=== PATIENT | female | born 1975 | race African-American/Black ===

== ENCOUNTER 2018-01-05 14:38 | Outpatient (CLI) | payer MEDICARE | END 2018-01-05 14:39 | disposition home or self-care (01) | LOC: CTENTCT 14:38 | PROVIDERS: ATTEND Specialist | DX: J32.9 Chronic sinusitis, unspecified (principal) | CPT/HCPCS: 70486 ==

== ENCOUNTER 2020-11-16 06:31 | Inpatient (IN) | payer MEDICARE ==
[2020-11-16 07:12] LABS: #Basophils 0.1 thou/uL (0.0-0.2); #Lymphocytes 3.7 thou/uL (1.20-3.40); #Monocytes 0.6 thou/uL (0.11-0.59); #Neutrophils 7.5 thou/uL (1.40-6.50); %Basophils 0.8 % (0.0-1.0); %Eosinophils 0.3 % (0.0-10.0); %Lymphocytes 30.9 % (21.0-51.0); %Monocytes 4.9 % (0.0-10.0); %Neutrophils 63.1 % (42.0-75.0); Hemoglobin 10.7 g/dL (12.0-16.0); Mean Corpuscular HGB CONC 30.9 g/dL (32.0-36.0); Mean Corpuscular Hemoglobin 27.1 pg (27.0-31.0); Mean Corpuscular Volume 87.6 fL (78.0-98.0); Mean Platelet Volume 7.6 fL (7.4-10.4); Platelet Count 416 thou/uL (130-400); Red Blood Cell (RBC) Count 3.95 mill/uL (4.20-5.40); White Blood Cell (WBC) Count 11.9 thou/uL (4.8-10.8)
[2020-11-16 07:36] LABS: ALT (SGPT) 16 U/L (8-55); AST (SGOT) 25 U/L (5-34); Albumin 3.5 g/dL (3.5-5.0); Alkaline Phosphatase 120 U/L (40-110); Anion Gap 16 mmol/L (10-20); BUN (Urea Nitrogen) 12 mg/dL (7.0-18.7); Bilirubin, Total 0.8 mg/dL (0.2-1.2); Calc. Creatinine Clearance 0 mL/min (70-130); Carbon Dioxide 28 mmol/L (22-29); Chloride 98 mmol/L (98-107); Globulin 5.2 g/dL (2.4-3.5); Glucose 148 mg/dL (70-105); Potassium 4.7 mmol/L (3.5-5.1); Protein, Total 8.7 g/dL (6.0-8.3); Sodium 137 mmol/L (136-145)
--- NOTE | 2020-11-16 07:50 | RAD ---
RADIOGRAPH CHEST 1 VIEW: DATE: 11/16/2020 TIME: 7:04 AM HISTORY: 45-year-old female with dyspnea and chest pain COMPARISON: 06/30/2004 FINDINGS: New cardiomegaly. New pulmonary venous engorgement. New bilateral hilar fullness. Questionable mild infiltrate at right base versus artifact. The lateral costophrenic angles are sharp. Limited study because of body habitus. No large pneumothorax. IMPRESSION: Cardiomegaly and borderline or mild congestive heart failure
[2020-11-16] MEDS ORDERED: Diltiazem 125 MG/25 ML ONE (09:40)
[2020-11-16 11:19] LABS: SARS-CoV-2 NAA Rapid Test Not Detected (NotDetected)
[2020-11-16] MEDS ORDERED: Apixaban 5 MG TAB PO SCH ×2 (11:30→12:30)
[2020-11-16] MEDS ORDERED: Magnesium 2 GM/50 ML BAG (IN WATER) ONE (12:07)
[2020-11-16] MEDS ORDERED: Magnesium 2 GM/50 ML 2 GM in Premix Bag 1 BAG IVPB SCH (12:30)
[2020-11-16] MEDS ORDERED: Sodium Chloride 0.9% 1,000 ML IV SCH (12:30)
--- NOTE | 2020-11-16 13:18 | ULT ---
ULTRASOUND DOPPLER DUPLEX VENOUS BILATERAL LOWER EXTREMITIES: DATE: 11/16/2020 HISTORY: 45-year-old female with bilateral lower extremity pain and swelling TECHNIQUE: Grayscale, color-flow, and spectral analysis, of the bilateral common femoral, profunda femoral, grea ter saphenous, femoral, popliteal, and posterior tibial, veins. FINDINGS: Because of body habitus, unable to compress or visualize the bilateral femoral veins or popliteal vei ns, which are all very poorly visualized. Blood flow is demonstrated by Doppler within these veins. Posterior tibial veins completely nonvisualized bilaterally. There is flow and normal compressibility in the bilateral common femoral veins and greater saphenous veins. IMPRESSION: 1) very limited study with nonvisualization of many major veins due to body habitus. 2) no occlusive deep venous thrombosis of the thighs and knees. This does not necessarily rule out no nocclusive deep venous thrombosis. 3) bilateral posterior tibial veins not visualized at all
[2020-11-16 15:01] LABS: Troponin I 0.013 ng/mL (< 0.028)
[2020-11-16] MEDS ORDERED: Furosemide 40 MG/4 ML VIAL SLOW IVP SCH (16:00)
--- NOTE | 2020-11-16 16:44 | PDOC.HHP ---
Hospitalist HPI shortness of breath, chest pain History of Present Illness: This is a 45 year old female with past medical history of sinus problems who presented to the ER with shortness of breath, leg swelling, abdominal swelling and chest pain. Her abdominal swelling started last Wednesday and got to the point where she would get pitting edema if she left her hand on her stomach. She does not eat salt, and drinks about four 16 ounce glasses of water daily . Her swelling was accompanied by intermittent sharp abdominal pains on her left side that are relieved with antacids. She has no nausea or vomiting. Yesterday, she noticed that her legs started to swell as well, and she experienced shortness of breath walking from her living room to her bathroom. She also reports chest pain on her left side that occasionally radiates to her back. Her chest pain occurs at rest and on exertion. She reports a clear productive cough, denies fevers, chills, runny nose or sore throat. She has had a normal stress test in the past. She denies any recent travel history and has not left her house since the pandemic. She denies palpitations, diaphoresis, dizziness or lightheadedness She had a history of hypertension in the past but states she was not taking blood pressure medicine at home because she was weaned off all of them. ED Course: When the patient presented to the ER, she had a blood pressure of 173/118. She also had a pulse of 150 and was found to be in afib with RVR. D-dimer was 3.97. Chest X ray showed mild CHF. CTA was unable to be done due to her body habitus. Venous dopplers were negative for DVT, but there was a limited assessment. The patient was given 20 mg IV diltiazem and started on a diltiazem drip at 5 mg/hour. She was also given 30 mg of oral cardizem and 10 mg of eliquis. She was given 1L of fluid as well. She received 2 grams of magnesium Allergies/Adverse Reactions: Allergy/AdvReac Type Severity Reaction Status Date / Time No Known Allergies Allergy Verified 11/16/20 16:04 Home Medications: Medication Instructions Recorded Confirmed Type No Known 11/16/20 11/16/20 History Past History: PMHx: Chronic allergies ROBERT Arthritis PSHx: No surgeries FHx: no family medical history Social: The patient lives in an apartment in [place]. She never smokes and does not drink alcohol. He does not use any illicit drugs Hospitalist HPI ROS Constitutional: denies: fever, chills Hospitalist Exam Vitals: Vital Signs (12 hours) Temp Pulse Resp BP Pulse Ox 11/16/20 15:45 97.9 F 91 18 125/58 L 98 Weight Weight 502 lb General Appearance: NAD, awake alert General - other findings: morbidly obese with a BMI of 86 Eye: PERRL, anicteric sclera ENT: normocephalic atraumatic, no oropharyngeal lesions Neck: no JVD Heart: no murmur, no gallops, no rubs, irregular Respiratory: CTAB, no wheezes, no rales, no ronchi Gastrointestinal: soft, non-tender, non-distended, normal bowel sounds, no hepatomegaly Extremities: no cyanosis, no clubbing, 2+ LE edema Skin: normal turgor, no lesions, no rashes Skin - other findings: venous stasis changes in lower extremities Neurological: cranial nerve grossly intact, normal sensation to touch, no weakness Musculoskeletal: normal tone, normal strength, no muscle wasting Psychiatric: normal affect, normal behavior, A&O x 3, oriented to person Hospitalist Results Result Diagrams: 11/16/20 06:55 11/16/20 06:55 Lab results: Laboratory Last Values WBC 11.9 thou/uL (4.8-10.8) H 11/16/20 06:55 RBC 3.95 mill/uL (4.20-5.40) L 11/16/20 06:55 Hgb 10.7 g/dL (12.0-16.0) L 11/16/20 06:55 Hct 34.6 % (36.0-47.0) L 11/16/20 06:55 MCV 87.6 fL (78.0-98.0) 11/16/20 06:55 MCH 27.1 pg (27.0-31.0) 11/16/20 06:55 MCHC 30.9 g/dL (32.0-36.0) L 11/16/20 06:55 RDW 18.0 % (11.5-14.5) H 11/16/20 06:55 Plt Count 416 thou/uL (130-400) H 11/16/20 06:55 MPV 7.6 fL (7.4-10.4) 11/16/20 06:55 Neutrophils % 63.1 % (42.0-75.0) 11/16/20 06:55 Lymphocytes % 30.9 % (21.0-51.0) 11/16/20 06:55 Monocytes % 4.9 % (0.0-10.0) 11/16/20 06:55 Eosinophils % 0.3 % (0.0-10.0) 11/16/20 06:55 Basophils % 0.8 % (0.0-1.0) 11/16/20 06:55 Neutrophils # 7.5 thou/uL (1.40-6.50) H 11/16/20 06:55 Lymphocytes # 3.7 thou/uL (1.20-3.40) H 11/16/20 06:55 Monocytes # 0.6 thou/uL (0.11-0.59) H 11/16/20 06:55 Eosinophils # 0.0 thou/uL (0.0-0.7) 11/16/20 06:55 Basophils # 0.1 thou/uL (0.0-0.2) 11/16/20 06:55 D-Dimer 3.97 *mcg/mL (0.27-0.43) H 11/16/20 06:55 Sodium 137 mmol/L (136-145) 11/16/20 06:55 Potassium 4.7 mmol/L (3.5-5.1) 11/16/20 06:55 Chloride 98 mmol/L (98-107) 11/16/20 06:55 Carbon Dioxide 28 mmol/L (22-29) 11/16/20 06:55 Anion Gap 16 mmol/L (10-20) 11/16/20 06:55 BUN 12 mg/dL (7.0-18.7) 11/16/20 06:55 Creatinine 0.79 mg/dL (0.6-1.1) 11/16/20 06:55 Estimated GFR (MDRD) Greater than 90 11/16/20 06:55 Glucose 148 mg/dL (70-105) H 11/16/20 06:55 Calcium 9.0 mg/dL (7.8-10.44) 11/16/20 06:55 Total Bilirubin 0.8 mg/dL (0.2-1.2) 11/16/20 06:55 AST 25 U/L (5-34) 11/16/20 06:55 ALT 16 U/L (8-55) 11/16/20 06:55 Alkaline Phosphatase 120 U/L (40-110) H 11/16/20 06:55 Troponin I 0.013 ng/mL (< 0.028) 11/16/20 14:31 B-Natriuretic Peptide 318.1 pg/mL (0-100) H 11/16/20 06:55 Serum Total Protein 8.7 g/dL (6.0-8.3) H 11/16/20 06:55 Albumin 3.5 g/dL (3.5-5.0) 11/16/20 06:55 Globulin 5.2 g/dL (2.4-3.5) H 11/16/20 06:55 Albumin/Globulin Ratio 0.7 g/dL (1.2-2.2) L 11/16/20 06:55 Lipase 7 U/L (8-78) L 11/16/20 11:05 TSH 3rd Generation 2.8126 uIU/mL (0.35-4.94) 11/16/20 06:55 SARS-CoV-2 Rap RNA(RT-PCR) Not Detected (NotDetected) 11/16/20 08:47 Hospitalist H&P A/P Plan: Dopplers: no DVT, but limited study This is a 45 year old female with past medical history of ROBERT, arthritis who presented with shortness of breath, leg swelling, abdominal swelling, was found to be in afib with RVR #Afib with RVR new onset #Dyspnea on exertion - possibly secondary to CHF #Chest pain on exertion #Hypertensive urgency - the patient presented with new onset afib with RVR and BP of 150/114 . She was started on a diltiazem drip. Will place on diltiazem 30 mg po q6 hours and try to wean her off the drip. - troponins x 2 are negative, pending one more. Will monitor on telemetry - she received eliquis 10 mg , will switch to 5 mg bid since no evidence of PE currently - ordered IV lasix 40 mg for possible CHF. Will check ECHO . Place cardiology consult Abdominal swelling - possibly from CHF vs GERD - will give IV lasix and reassess - will order tums prn Peripheral edema - possibly CHF - d-dimer was elevated. Dopplers showed no DVT, but limited study and posterior tibial veins were not visualized at all Allergies - continue claritin prn
[2020-11-16] MEDS ORDERED: Loratadine 10 MG TAB PO PRN (17:40)
[2020-11-16] MEDS ORDERED: Calcium Carbonate 500 MG ChewTAB PO PRN (17:48)
[2020-11-16 18:18] LABS: Troponin I Less than 0.010 ng/mL (< 0.028)
[2020-11-16] MEDS: Diltiazem 125 MG in Sodium Chloride 0.9% 100 ML IVPB SCH (20:07)
[2020-11-16] MEDS: Flecainide 50 MG TAB PO SCH (20:09)
--- NOTE | 2020-11-16 20:53 | CON ---
DATE OF CONSULTATION: 11/16/2020 REASON FOR CONSULTATION: Atrial flutter. HISTORY OF PRESENT ILLNESS: Ms. Haley is a pleasant 45-year-old female, who comes to the hospital for shortness of breath. She states that she started having abdominal pain on Wednesday, today is Wednesday. She eventually developed some chest discomfort on , developed worsening shortness of breath Wednesday and Wednesday to the point where today she decided to come in for evaluation as she was not feeling any better and just feeling worse. She was found to be in atrial flutter on admission, so she was started on diltiazem drip and Cardiology is being consulted for this. Because of her weight, we were unable to do a CT of the chest to evaluate for pulmonary embolism. However, an ultrasound of the lower extremities was done and because of body habitus, there were unable to do a full study. The areas that were looked at had no thrombus, but there were other deep veins that could not be seen. Because of being in atrial flutter, she was started on Eliquis. Currently, she denies any chest pain, tightness, pressure. She states that she had some abdominal swelling and is already feeling better after she was given one dose of Lasix. PAST MEDICAL HISTORY: 1. Morbid obesity. 2. Obstructive sleep apnea. 3. Osteoarthritis. PAST SURGICAL HISTORY: None. FAMILY HISTORY: Noncontributory. SOCIAL HISTORY: No alcohol, tobacco, or drugs. REVIEW OF SYSTEMS: A 12-point review of systems was negative unless stated in history of present illness or below. She did have some cough, cough is getting better. No fevers. PHYSICAL EXAMINATION: VITAL SIGNS: Temperature 97.9, pulse of 110, respiratory rate 18, saturating 98% on 2 L nasal cannula, blood pressure 125/58. GENERAL: Awake, alert, and oriented x3, in no distress. Obese. HEENT: Normocephalic, atraumatic. NECK: Supple. LUNGS: Clear with distant lung sounds. CARDIOVASCULAR: Distant sounds. Irregularly irregular. Difficult to assess for murmurs. ABDOMEN: Positive bowel sounds. EXTREMITIES: No apparent edema. SKIN: Warm and dry. LABORATORY DATA: Laboratory work was reviewed. COVID PCR was not detected. CBC with a white count of 11, hemoglobin 10, hematocrit of 34, and platelet count 416. D-dimer was elevated. Chemistry was unremarkable except for a glucose of 148. Alkaline phosphatase at 120. BNP was 318. Troponin was negative x2. Albumin of 3.5. Lipase was low at 7. TSH was normal. Venous ultrasound Doppler for veins shows no evidence of DVT in any of the imaged veins, however, bilateral posterior tibial veins were not visualized. Telemetry strips were reviewed. No EKG was there for review. Telemetry strips seem to be in atrial flutter, cannot tell typical versus atypical. EKG has been ordered. ASSESSMENT AND PLAN: 1. Atrial flutter with variable AV block, unspecified typical versus atypical. 2. Acute on chronic diastolic versus systolic heart failure. 3. Cannot rule out deep venous thrombosis/pulmonary embolism. 4. Morbid obesity. 5. Sleep apnea. PLAN: 1. Echocardiogram to be done. 2. Full anticoagulation with Eliquis at 5 mg b.i.d., completely agree with this. 3. We will start flecainide 50 mg b.i.d., continue diltiazem drip and p.o. diltiazem doses. Hopefully, she will convert into sinus on her own over the weekend. 4. I agree with IV Lasix. We will do this twice a day for the next few days to get some of this fluid out. 5. If she becomes unstable, she may need a cardioversion from the flutter. However, at this point, she is quite stable. We may just need to wait for 4 weeks of anticoagulation before we give her a shock. It would be a challenge to do a transesophageal echo given her size, but we may have to do this. 6. I will consult Electrophysiology to see if they have anything else to offer. A bigger question would be any dosage adjustments given her weight. At this point, I do not think she would qualify for ablation given she is over the weight limit for the table. 7. We will follow. Job ID: [id number]
[2020-11-16 20:56] LABS: Lactic Acid 1.2 mmol/L (0.5-2.2)
[2020-11-16 23:28] LABS: Hemoglobin A1c 6.4 % (4.0-6.0)
[2020-11-17] MEDS: Diltiazem 125 MG in Sodium Chloride 0.9% 100 ML IVPB SCH ×3 (03:15→22:03)
[2020-11-17] MEDS: Furosemide 40 MG/4 ML VIAL SLOW IVP SCH ×2 (05:37→13:08)
[2020-11-17 09:20] LABS: Mean Corpuscular HGB CONC 30.2 g/dL (32.0-36.0); Mean Corpuscular Hemoglobin 26.9 pg (27.0-31.0); Mean Corpuscular Volume 89.1 fL (78.0-98.0); Mean Platelet Volume 7.3 fL (7.4-10.4); Platelet Count 374 thou/uL (130-400); RBC Distribution Width 17.9 % (11.5-14.5); Red Blood Cell (RBC) Count 4.09 mill/uL (4.20-5.40); White Blood Cell (WBC) Count 11.7 thou/uL (4.8-10.8)
[2020-11-17] MEDS: Flecainide 50 MG TAB PO SCH ×2 (09:21→20:46)
[2020-11-17] MEDS: Apixaban 5 MG TAB PO SCH ×2 (09:22→20:46)
[2020-11-17 09:37] LABS: Magnesium 1.9 mg/dL (1.6-2.6)
[2020-11-17 09:38] LABS: ALT (SGPT) 13 U/L (8-55); AST (SGOT) 14 U/L (5-34); Albumin 3.7 g/dL (3.5-5.0); Alkaline Phosphatase 111 U/L (40-110); Anion Gap 12 mmol/L (10-20); BUN (Urea Nitrogen) 12 mg/dL (7.0-18.7); Bilirubin, Total 0.8 mg/dL (0.2-1.2); Calc. Creatinine Clearance 316 mL/min (70-130); Calcium 8.9 mg/dL (7.8-10.44); Carbon Dioxide 34 mmol/L (22-29); Chloride 97 mmol/L (98-107); Globulin 5.3 g/dL (2.4-3.5); Glucose 137 mg/dL (70-105); Iron 29 ug/dL (50-170); Iron Binding Capacity, Total 398 mcg/dL (265-497); Potassium 4.5 mmol/L (3.5-5.1); Sodium 138 mmol/L (136-145)
--- NOTE | 2020-11-17 13:17 | PDOC.HOSPP ---
- Subjective Encounter Date: 11/17/20 Encounter Time: 10:00 Subjective: No complaints, asymptomatic, lying in bed - Objective Vital Signs & Weight: Vital Signs (12 hours) Temp Pulse Resp BP Pulse Ox 11/17/20 11:35 98.0 F 99 19 115/78 98 11/17/20 10:32 98.2 F 103 H 21 H 135/84 98 11/17/20 07:26 97.7 F 90 17 129/78 94 L 11/17/20 04:00 101 H 18 119/50 L 97 11/17/20 02:00 101 H 153/96 H Weight Weight 496 lb 4.8 oz I&O: 11/16/20 11/17/20 11/18/20 06:59 06:59 06:59 Intake Total 240 Output Total 1850 Balance -1610 Result Diagrams: 11/17/20 09:07 11/17/20 09:07 Hospitalist ROS - Review of Systems Constitutional: denies: fever, chills, sweats, weakness, malaise, other Eyes: denies: pain, vision change, conjunctivae inflammation, eyelid inflammation, redness, other ENT: denies: ear pain, ear discharge, nose pain, nose discharge, nose congestion, mouth pain, mouth swelling, throat pain, throat swelling, other Respiratory: denies: cough, dry, shortness of breath, hemoptysis, SOB with excertion, pleuritic pain, sputum, wheezing, other Cardiovascular: denies: chest pain, palpitations, orthopnea, paroxysmal noc. dyspnea, edema, light headedness, other Gastrointestinal: denies: nausea, vomiting, abdominal pain, diarrhea, constipation, melena, hematochezia, other Musculoskeletal: denies: neck pain, shoulder pain, arm pain, back pain, hand pain, leg pain, foot pain, other Neurological: denies: weakness, numbness, incoordination, change in speech, confusion, seizures, other - Medication Medications: Active Medications Generic Name Dose Route Start Last Admin Trade Name Freq PRN Reason Stop Dose Admin Apixaban 5 mg 11/17/20 09:00 11/17/20 09:22 Apixaban 5 Mg Tab PO 5 mg BID IDALMIS Administration Diltiazem HCl 30 mg 11/16/20 18:00 11/17/20 11:41 Diltiazem Hcl 30 Mg Tablet PO 30 mg Q6HR IDALMIS Administration Flecainide Acetate 50 mg 11/16/20 21:00 11/17/20 09:21 Flecainide 50 Mg Tab PO 50 mg Q12HR IDALMIS Administration Furosemide 40 mg 11/17/20 06:00 11/17/20 13:08 Furosemide 40 Mg/4 Ml Vial SLOW IVP 40 mg 0600,1400 IDALMIS Administration Diltiazem HCl 125 mg/ Sodium 125 mls @ 5 mls/hr 11/16/20 12:30 11/17/20 13:07 Chloride IVPB 125 mls INF IDALMIS Administration 5 MG/HR Hospitalist Exam Vitals: Vital Signs (12 hours) Temp Pulse Resp BP Pulse Ox 11/17/20 11:35 98.0 F 99 19 115/78 98 11/17/20 10:32 98.2 F 103 H 21 H 135/84 98 11/17/20 07:26 97.7 F 90 17 129/78 94 L 11/17/20 04:00 101 H 18 119/50 L 97 11/17/20 02:00 101 H 153/96 H Weight Weight 496 lb 4.8 oz General Appearance: NAD, awake alert Eye: PERRL, anicteric sclera ENT: normocephalic atraumatic Neck: supple Heart: irregular Respiratory: CTAB Gastrointestinal: soft, non-tender, non-distended Neurological: cranial nerve grossly intact Musculoskeletal: normal tone Psychiatric: normal affect, normal behavior Hosp A/P - Plan 1. Atrial fibrillation in RVR/A.flutter -On diltiazem gtt. and flecainide -2D echo also done, result pending -If patient fails to convert to sinus rhythm, EP was consulted for cardioversion tomorrow -On Eliquis for stroke prophylaxis 2. Acute mild CHF exacerbation likely diastolic in nature -Chest x-ray showed evidence of mild CHF and also with bilateral lower extremity edema -IV Lasix -Awaiting 2D echo results 3. DVT prophylaxis -On Eliquis
--- NOTE | 2020-11-17 16:16 | PDOC.CPN ---
- Subjective Date: 11/17/20 Time: 16:12 Interval history: She feels well and is asking when she can go home. - Review of Systems General: denies: fever/chills, weight/appetite/sleep changes, night sweats, fatigue Respiratory: reports: exercise intolerance. denies: cough, congestion, shortness of breath Cardiovascular: denies: chest pain, palpitation, edema, paroxysmal nocturnal dyspnea, orthopnea Gastrointestinal: denies: nausea, vomiting, diarrhea, constipation, abd pain, GI bleeding Musculoskeletal: denies: pain, tenderness, stiffness, swelling, arthritis/arthralgias Neurological: denies: numbness, syncope, seizure, weakness - Objective Allergies/Adverse Reactions: Allergies Allergy/AdvReac Type Severity Reaction Status Date / Time No Known Allergies Allergy Verified 11/16/20 16:04 Visit Medications: Current Medications Apixaban (Apixaban 5 Mg Tab) 5 mg PO BID [facility] Last Admin: 11/17/20 09:22 Dose: 5 mg Documented by: Calcium Carbonate (Calcium Carbonate 500 Mg Chewtab) 1,000 mg PO DAILYPRN PRN PRN Reason: Heartburn or Indigestion Diltiazem HCl (Diltiazem Hcl 30 Mg Tablet) 30 mg PO Q6HR [facility] Last Admin: 11/17/20 11:41 Dose: 30 mg Documented by: Flecainide Acetate (Flecainide 50 Mg Tab) 50 mg PO Q12HR [facility] Last Admin: 11/17/20 09:21 Dose: 50 mg Documented by: Furosemide (Furosemide 40 Mg/4 Ml Vial) 40 mg SLOW IVP 0600,1400 [facility] Last Admin: 11/17/20 13:08 Dose: 40 mg Documented by: Diltiazem HCl 125 mg/ Sodium (Chloride) 125 mls @ 15 mls/hr IVPB INF [facility] Last Admin: 11/17/20 13:07 Dose: 125 mls Documented by: Loratadine (Loratadine 10 Mg Tab) 10 mg PO DAILYPRN PRN PRN Reason: Allergies Vital Signs & Weight: Vital Signs Temp Pulse Resp BP Pulse Ox 11/17/20 15:59 98.3 F 90 16 146/92 H 95 11/17/20 14:20 99.0 F 109 H 17 125/95 H 95 11/17/20 11:35 98.0 F 99 19 115/78 98 11/17/20 10:32 98.2 F 103 H 21 H 135/84 98 11/17/20 07:26 97.7 F 90 17 129/78 94 L Weight 496 lb 4.8 oz - Physical Exam General: alert & oriented x3 HEENT: mucus membranes moist Neck: supple neck Cardiac: irregularly regular Lungs: clear to auscultation Neuro: grossly intact Abdomen: active bowel sounds Extremities: 1+ LE edema Skin: clear Musculoskeletal: no pain - Labs Result Diagrams: 11/17/20 09:07 11/17/20 09:07 Troponin/CKMB Troponin I Less than 0.010 ng/mL (< 0.028) 11/16/20 17:50 - Telemetry Supraventricular conduction: atrial flutter - Assessment/Plan Assessment/Plan: 1. Atrial flutter with variable AV block. 2. Acute on chronic diastolic heart failure. 3. Morbid obesity 4. Sleep apnea 5. Anemia at baseline. PLAN: - Continue lenient rate control. HR in the 90's to 110's. - Eliquis for stroke prophylaxis. - On flecainide at 50 mg BID and diltiazem drip. - EP consult in AM.
[2020-11-17] MEDS: Acetaminophen 325 MG TAB PO PRN (16:45)
[2020-11-18] MEDS: Acetaminophen 325 MG TAB PO PRN ×2 (03:51→20:52)
[2020-11-18] MEDS: Furosemide 40 MG/4 ML VIAL SLOW IVP SCH ×2 (05:51→12:53)
[2020-11-18] MEDS: Diltiazem 125 MG in Sodium Chloride 0.9% 100 ML IVPB SCH ×2 (07:18→18:46)
[2020-11-18] MEDS: Apixaban 5 MG TAB PO SCH ×2 (08:07→20:52)
[2020-11-18] MEDS: Flecainide 50 MG TAB PO SCH ×2 (08:07→20:52)
--- NOTE | 2020-11-18 14:28 | PDOC.CPN ---
- Subjective Date: 11/18/20 Time: 14:27 Interval history: More SOB this morning and more edema. - Review of Systems General: reports: fatigue. denies: fever/chills, weight/appetite/sleep changes, night sweats Respiratory: reports: shortness of breath, exercise intolerance. denies: cough, congestion Cardiovascular: denies: chest pain, palpitation, edema, paroxysmal nocturnal dyspnea, orthopnea Gastrointestinal: denies: nausea, vomiting, diarrhea, constipation, abd pain, GI bleeding Musculoskeletal: denies: pain, tenderness, stiffness, swelling, arth ritis/arthralgias Neurological: denies: numbness, syncope, seizure, weakness - Objective Allergies/Adverse Reactions: Allergies Allergy/AdvReac Type Severity Reaction Status Date / Time No Known Allergies Allergy Verified 11/16/20 16:04 Visit Medications: Current Medications Acetaminophen (Acetaminophen 325 Mg Tab) 650 mg PO Q6H PRN PRN Reason: Headache/Fever or Pain Last Admin: 11/18/20 03:51 Dose: 650 mg Documented by: Apixaban (Apixaban 5 Mg Tab) 5 mg PO BID REPLACED BY [facility] Last Admin: 11/18/20 08:07 Dose: 5 mg Documented by: Calcium Carbonate (Calcium Carbonate 500 Mg Chewtab) 1,000 mg PO DAILYPRN PRN PRN Reason: Heartburn or Indigestion Diltiazem HCl (Diltiazem Hcl 30 Mg Tablet) 60 mg PO Q6HR REPLACED BY [facility] Last Admin: 11/18/20 12:53 Dose: 60 mg Documented by: Flecainide Acetate (Flecainide 50 Mg Tab) 100 mg PO Q12HR REPLACED BY [facility] Furosemide (Furosemide 40 Mg/4 Ml Vial) 40 mg SLOW IVP 0600,1400 REPLACED BY [facility] Last Admin: 11/18/20 12:53 Dose: 40 mg Documented by: Diltiazem HCl 125 mg/ Sodium (Chloride) 125 mls @ 15 mls/hr IVPB INF REPLACED BY [facility] Last Admin: 11/18/20 07:18 Dose: 125 mls Documented by: Loratadine (Loratadine 10 Mg Tab) 10 mg PO DAILYPRN PRN PRN Reason: Allergies Sodium Chloride (Flush - Normal Saline 10 Ml Syringe) 10 ml IVF Q12HR IDALMIS Sodium Chloride (Flush - Normal Saline 10 Ml Syringe) 10 ml IVF PRN PRN PRN Reason: Saline Flush Vital Signs & Weight: Vital Signs Temp Pulse Resp BP Pulse Ox 11/18/20 12:52 98.3 F 120 H 26 H 135/83 98 11/18/20 11:09 99.1 F 117 H 20 157/89 H 99 11/18/20 10:36 99.6 F 115 H 25 H 141/69 H 98 11/18/20 07:43 98.4 F 99 32 H 151/109 H 100 11/18/20 07:03 93 L 11/18/20 06:00 100 18 132/107 H 11/18/20 04:00 108 H 18 145/107 H Weight 496 lb 4.8 oz - Physical Exam General: alert & oriented x3 HEENT: mucus membranes moist Neck: supple neck Cardiac: irregularly regular, tachycardia Lungs: decreased breath sounds Neuro: grossly intact Abdomen: active bowel sounds Extremities: 1+ LE edema Skin: clear Musculoskeletal: no pain - Labs Result Diagrams: 11/17/20 09:07 11/17/20 09:07 Troponin/CKMB Troponin I Less than 0.010 ng/mL (< 0.028) 11/16/20 17:50 - Telemetry Supraventricular conduction: atrial flutter - Assessment/Plan Assessment/Plan: 1. Atrial flutter with variable AV block. 2. Acute on chronic diastolic heart failure. 3. Morbid obesity 4. Sleep apnea 5. Anemia at baseline. PLAN: - Currently not rate controlled in the 120's. - Eliquis for stroke prophylaxis. - On flecainide and diltiazem. - Appreciate EP input. Plan on EZRA/DCCV tomorrow. - Will give one dose IV lasix.
--- NOTE | 2020-11-18 15:04 | PDOC.HOSPP ---
- Subjective Encounter Date: 11/18/20 Encounter Time: 07:00 Subjective: Patient seen in follow-up regarding atrial flutter. Denies chest pain or shortness of breath. - Objective Vital Signs & Weight: Vital Signs (12 hours) Temp Pulse Resp BP Pulse Ox 11/18/20 12:52 98.3 F 120 H 26 H 135/83 98 11/18/20 11:09 99.1 F 117 H 20 157/89 H 99 11/18/20 10:36 99.6 F 115 H 25 H 141/69 H 98 11/18/20 07:43 98.4 F 99 32 H 151/109 H 100 11/18/20 07:03 93 L 11/18/20 06:00 100 18 132/107 H 11/18/20 04:00 108 H 18 145/107 H Weight Weight 496 lb 4.8 oz I&O: 11/17/20 11/18/20 11/19/20 06:59 06:59 06:59 Intake Total 240 1860 Output Total 1850 1600 Balance -1610 260 Result Diagrams: 11/17/20 09:07 11/17/20 09:07 Additional Labs: Labs and MAR reviewed by me EKG Reviewed by me: Yes (Atrial flutter on telemetry) Hospitalist ROS - Review of Systems Cardiovascular: denies: chest pain, palpitations, orthopnea, paroxysmal noc. dyspnea, edema, light headedness Gastrointestinal: denies: nausea, vomiting, abdominal pain, diarrhea, constipation, melena, hematochezia - Medication Medications: Active Medications Generic Name Dose Route Start Last Admin Trade Name Freq PRN Reason Stop Dose Admin Acetaminophen 650 mg 11/17/20 16:29 11/18/20 03:51 Acetaminophen 325 Mg Tab PO 650 mg Q6H PRN Administration Headache/Fever or Pain Apixaban 5 mg 11/17/20 09:00 11/18/20 08:07 Apixaban 5 Mg Tab PO 5 mg BID IDALMIS Administration Diltiazem HCl 60 mg 11/18/20 12:00 11/18/20 12:53 Diltiazem Hcl 30 Mg Tablet PO 60 mg Q6HR IDALMIS Administration Furosemide 40 mg 11/17/20 06:00 11/18/20 12:53 Furosemide 40 Mg/4 Ml Vial SLOW IVP 40 mg 0600,1400 IDALMIS Administration Diltiazem HCl 125 mg/ Sodium 125 mls @ 15 mls/hr 11/16/20 12:30 11/18/20 07:18 Chloride IVPB 125 mls INF IDALMIS Administration 15 MG/HR Hospitalist Exam Vitals: Vital Signs (12 hours) Temp Pulse Resp BP Pulse Ox 11/18/20 12:52 98.3 F 120 H 26 H 135/83 98 11/18/20 11:09 99.1 F 117 H 20 157/89 H 99 11/18/20 10:36 99.6 F 115 H 25 H 141/69 H 98 11/18/20 07:43 98.4 F 99 32 H 151/109 H 100 11/18/20 07:03 93 L 11/18/20 06:00 100 18 132/107 H 11/18/20 04:00 108 H 18 145/107 H Weight Weight 496 lb 4.8 oz General Appearance: awake alert General - other findings: Morbid obesity Eye: anicteric sclera ENT: normocephalic atraumatic Neck: supple Heart: no rubs, irregular Respiratory: CTAB Gastrointestinal: soft, non-tender Extremities: 2+ LE edema Skin: no rashes Psychiatric: normal affect, normal behavior Hosp A/P - Plan -Assessment/plan 1. Atrial fibrillation in RVR/A.flutter -Continue diltiazem gtt. and flecainide -Neurology/electrophysiology service is following -Continue Eliquis for stroke prophylaxis 2. Acute on chronic diastolic congestive heart failure NYHA class III -Continue IV Lasix -No systolic dysfunction on 2D echo, diastolic function could not be evaluated secondary to atrial flutter. 3. Morbid obesity 4. DVT prophylaxis -Patient is on Eliquis
[2020-11-18] MEDS ORDERED: Promethazine HCl 25 MG/ML VIAL IM/IV PRN (19:02)
[2020-11-19] MEDS ORDERED: Diltiazem 125 MG in Sodium Chloride 0.9% 100 ML IVPB SCH (03:00)
[2020-11-19 04:57] VITALS: BMI 84.6
[2020-11-19 05:08] LABS: Band 1 % (5-11); Eosinophils 1 % (0-10); Hemoglobin 10.3 g/dL (12.0-16.0); Hypochromia SLIGHT = 6-15 cells (100X) (0-5/hpf); Lymphocytes 18 % (21-51); MDiff Complete? YES; Mean Corpuscular HGB CONC 30.4 g/dL (32.0-36.0); Mean Corpuscular Hemoglobin 27.6 pg (27.0-31.0); Mean Corpuscular Volume 90.8 fL (78.0-98.0); Monocytes 15 % (0-10); Neutrophil 65 % (42-75); Platelet Count 265 thou/uL (130-400); Red Blood Cell (RBC) Count 3.73 mill/uL (4.20-5.40); Target Cells SLIGHT = 2-5 cells (100X) (0-1/hpf); White Blood Cell (WBC) Count 13.2 thou/uL (4.8-10.8)
[2020-11-19 05:15] LABS: ALT (SGPT) 11 U/L (8-55); AST (SGOT) 18 U/L (5-34); Albumin 3.5 g/dL (3.5-5.0); Alkaline Phosphatase 106 U/L (40-110); Anion Gap 16 mmol/L (10-20); BUN (Urea Nitrogen) 17 mg/dL (7.0-18.7); Bilirubin, Total 0.8 mg/dL (0.2-1.2); Calc. Creatinine Clearance 253 mL/min (70-130); Calcium 8.7 mg/dL (7.8-10.44); Carbon Dioxide 28 mmol/L (22-29); Chloride 95 mmol/L (98-107); Globulin 5.4 g/dL (2.4-3.5); Glucose 127 mg/dL (70-105); Potassium 6.1 mmol/L (3.5-5.1); Protein, Total 8.9 g/dL (6.0-8.3); Sodium 133 mmol/L (136-145)
[2020-11-19] MEDS: Furosemide 40 MG/4 ML VIAL SLOW IVP SCH (05:46)
[2020-11-19] MEDS ORDERED: Ketamine 50 MG/ML (10ML VIAL) ONE (07:10)
[2020-11-19] MEDS ORDERED: AFRIN NASAL MIST 15 ML BOT ONE (07:10)
[2020-11-19] MEDS ORDERED: Benzocaine 20% Spray 60 ML CAN ONE (07:17)
--- NOTE | 2020-11-19 07:26 | CON ---
DATE OF CONSULTATION: 11/18/2020 Dictated by Elizabeth Jimenez, nurse practitioner, as a scribe for Dr. Chay Barrera. REASON FOR CONSULTATION: Atrial flutter with RVR. 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 Her problem list is as follows: 1. Persisting atrial flutter with RVR, possibly CTI dependent. 2. Congestive heart failure, diastolic heart failure. a. 11/17/2020, echocardiogram, LVEF 60% to 65%, concentric LVH, moderately dilated left atrium, mild MR, LA 5.44 cm. 3. Morbid obesity, approximately 490 pounds, BMI of 82. 4. Obstructive sleep apnea. 5. Osteoarthritis. SURGICAL HISTORY: None. FAMILY HISTORY: Noncontributory. SOCIAL HISTORY: Negative for alcohol, drugs, or tobacco. REVIEW OF SYSTEMS: Positive for shortness of breath, peripheral edema, occasional palpitations. Onset of symptoms was 4 days ago. Otherwise, 12-point review of systems is unremarkable. SUBJECTIVE: Ms. Haley is a 45-year-old woman, who developed shortness of breath with swelling in her lower extremities starting . She did have an occasional fluttering sensation, but denies any severe or sustained tachycardic palpitations. She has had no chest pain, tightness, pressure, or stroke-like symptoms. She has no history of irregular heartbeat. When she presented to the hospital, she was found to be in rapid atrial flutter and started on a diltiazem drip. She has been rate controlled over the weekend on diltiazem and her congestive heart failure symptoms had been subsiding with diuresis. Today, her shortness of breath is worse and she reports her legs feel edematous again. Due to her size, the CT could not be performed to rule out pulmonary embolism and a limited lower extremity duplex was done with no DVT revealed, albeit a difficult study to complete due to body habitus. ALLERGIES: NO KNOWN DRUG ALLERGIES. HOME MEDICATIONS: None. OBJECTIVE: VITAL SIGNS: Temperature 98.3, pulse 120, blood pressure 135/83, respirations 26, and oxygen is 98% on 3 L via nasal cannula delivered via home CPAP/nasal pillows. GENERAL: The patient is morbidly obese, alert, oriented, in no apparent distress, resting semirecumbent in bed. NECK: Obese. JVD could not be assessed. Trachea is midline. There is no lymphadenopathy palpable. PULMONARY: Lung sounds are distant. Slightly tachypneic requiring supplemental oxygen through her CPAP. HEART: Rate is rapid, slightly irregular. PMI nonpalpable due to habitus. ABDOMEN: Large, obese, nontender. EXTREMITIES: Warm and dry to touch with bilateral lower extremity edema noted. NEUROLOGIC: Grossly intact. Gait was not assessed. DIAGNOSTIC STUDIES: Telemetry and EKG show ongoing atrial flutter, likely cavotricuspid isthmus dependent in origin with variable AV conduction, currently with mild to moderate rate control with ventricular rates between 110 and 120 beats per minute. LABORATORY DATA: Hematology: Baseline anemia, hemoglobin 10.7 on arrival, platelet count is 374. Chemistry: Potassium 4.5, creatinine 0.79, magnesium 1.9. TSH 2.8. COVID test performed on 11/16, COVID not detected. IMPRESSION: 1. Sustained, typical atrial flutter. 2. Congestive heart failure with preserved left ventricular ejection fraction. 3. Morbid obesity with significant comorbidities. 4. Obstructive sleep apnea. PLAN AND RECOMMENDATIONS: Ms. Haley is a pleasant woman, whom we find is in a rapid atrial flutter despite ongoing diltiazem drip at 15 mg/hour in addition to oral diltiazem 30 mg q.6 hours. She was placed on low-dose flecainide 50 mg b.i.d., but has remained in atrial flutter. Her rate control is better over the weekend, but today has worsened with reportedly increased symptoms with worsening shortness of breath and the return of some peripheral edema. Given her congestive heart failure symptoms, congregation of sinus rhythm would be most beneficial. Ideally, she would be on oral anticoagulation for 30 days before attempting this but I feel she will struggle with decompensated congestive heart failure during this time and if she discharged home, she would likely return to the hospital quickly. Due to her obesity, a EZRA will be challenging. Unfortunately, she was given some juice today and therefore will not be able to undergo anesthesia. Arrangements will be attempted for tomorrow morning. I agree with continued oral anticoagulation with Eliquis 5 mg b.i.d. In regard to the antiarrhythmic therapy, she is young and has no known history of coronary artery disease, we did discuss the chance and proarrhythmic effect of flecainide should there be ischemic heart disease present that is undiscovered. Given her weight, a higher dose of flecainide will be required to be effective. We will increase her dose to 100 mg b.i.d. tonight, which will also increase the chances of successful cardioversion tomorrow. At this point, her QRS is narrow, less than 100 milliseconds. We will watch her QRS on this increased dose. At this point, we are limited to medical management with her arrhythmias due to her morbid obesity. She exceeds the weight limit on the table and ablation could not be considered until significant weight loss is achieved. Thank you for allowing me to participate in the care of this patient. Job ID: [id number] [facility] SYSTEM[facility]heng
[2020-11-19] MEDS: Apixaban 5 MG TAB PO SCH ×2 (09:47→20:05)
[2020-11-19] MEDS: Flecainide 50 MG TAB PO SCH ×2 (09:47→20:05)
[2020-11-19 10:13] LABS: Anion Gap 17 mmol/L (10-20); BUN (Urea Nitrogen) 20 mg/dL (7.0-18.7); Calc. Creatinine Clearance 267 mL/min (70-130); Calcium 8.6 mg/dL (7.8-10.44); Carbon Dioxide 26 mmol/L (22-29); Chloride 96 mmol/L (98-107); Glucose 132 mg/dL (70-105); Potassium 5.9 mmol/L (3.5-5.1); Sodium 133 mmol/L (136-145)
[2020-11-19] MEDS ORDERED: PHENYLEPHRINE-NS 100 MCG/ML 10 ML SYRINGE ONE (10:46)
[2020-11-19] MEDS ORDERED: PROPOFOL 200 MG/20 ML VIAL ONE (10:46)
--- NOTE | 2020-11-19 12:57 | EKG ---
Test Reason : POST CARDIOVERSION Blood Pressure : / mmHG Vent. Rate : 096 BPM Atrial Rate : 096 BPM P-R Int : 194 ms QRS Dur : 110 ms QT Int : 386 ms P-R-T Axes : 060 016 068 degrees QTc Int : 487 ms Normal sinus rhythm Possible Left atrial enlargement Prolonged QT Abnormal ECG When compared with ECG of 16-NOV-2020 08:45, (Unconfirmed) Sinus rhythm has replaced Atrial flutter Vent. rate has decreased BY [address] no longer depressed in Anterior leads Nonspecific T wave abnormality, improved in Anterolateral leads Confirmed by DR. Daisy ARREOLA ([id number]) on 11/19/2020 12:57:17 PM Referred By: REX Confirmed By:DR. Daisy ARREOLA
--- NOTE | 2020-11-19 13:14 | PDOC.HOSPP ---
- Subjective Encounter Date: 11/19/20 Encounter Time: 13:12 Subjective: Patient seen for follow-up regarding Godfrey vásquez. She is status post cardioversion, denies chest pain. - Objective Vital Signs & Weight: Vital Signs (12 hours) Temp Pulse Resp BP Pulse Ox 11/19/20 12:00 98.6 F 85 26 H 154/95 H 97 11/19/20 09:30 97 11/19/20 09:15 98.4 F 86 26 H 166/98 H 97 11/19/20 08:17 94 L 11/19/20 06:37 98.3 F 91 20 147/89 H 94 L 11/19/20 04:00 97.3 F L 86 18 150/95 H 96 11/19/20 02:39 98.4 F 85 24 H 105/62 95 11/19/20 01:17 96 Weight Weight 493 lb 6.4 oz I&O: 11/18/20 11/19/20 11/20/20 06:59 06:59 06:59 Intake Total 1860 1586 Output Total 1600 1050 Balance 260 536 Result Diagrams: 11/19/20 04:14 11/19/20 09:26 Additional Labs: I reviewed patient's labs and MAR EKG Reviewed by me: Yes (Normal sinus rhythm on telemetry) Hospitalist ROS - Review of Systems Cardiovascular: reports: light headedness. denies: chest pain, palpitations, orthopnea, paroxysmal noc. dyspnea, edema Gastrointestinal: denies: nausea, vomiting, abdominal pain, diarrhea, constipation, melena - Medication Medications: Active Medications Generic Name Dose Route Start Last Admin Trade Name Freq PRN Reason Stop Dose Admin Acetaminophen 650 mg 11/17/20 16:29 11/18/20 20:52 Acetaminophen 325 Mg Tab PO 650 mg Q6H PRN Administration Headache/Fever or Pain Apixaban 5 mg 11/17/20 09:00 11/19/20 09:47 Apixaban 5 Mg Tab PO 5 mg BID IDALMIS Administration Diltiazem HCl 60 mg 11/18/20 12:00 11/19/20 11:40 Diltiazem Hcl 30 Mg Tablet PO 60 mg Q6HR IDALMIS Administration Flecainide Acetate 100 mg 11/18/20 21:00 11/19/20 09:47 Flecainide 50 Mg Tab PO 100 mg Q12HR IDALMIS Administration Promethazine HCl 25 mg 11/18/20 19:02 11/18/20 23:51 Promethazine Hcl 25 Mg/Ml Vial IM/IV 25 mg Q6H PRN Administration Nausea/Vomiting Sodium Chloride 10 ml 11/18/20 21:00 11/19/20 09:48 Flush - Normal Saline 10 Ml Syringe IVF 10 ml Q12HR IDALMIS Administration Hospitalist Exam Vitals: Vital Signs (12 hours) Temp Pulse Resp BP Pulse Ox 11/19/20 12:00 98.6 F 85 26 H 154/95 H 97 11/19/20 09:30 97 11/19/20 09:15 98.4 F 86 26 H 166/98 H 97 11/19/20 08:17 94 L 11/19/20 06:37 98.3 F 91 20 147/89 H 94 L 11/19/20 04:00 97.3 F L 86 18 150/95 H 96 11/19/20 02:39 98.4 F 85 24 H 105/62 95 11/19/20 01:17 96 Weight Weight 493 lb 6.4 oz General - other findings: Morbid obesity ENT: normocephalic atraumatic Neck: supple Heart: RRR Respiratory: CTAB Gastrointestinal: soft, non-tender Skin: no rashes Psychiatric: normal affect, normal behavior Hosp A/P - Plan -Assessment/plan 1. Atrial fibrillation in RVR/A.flutter -Status post cardioversion, start oral calcium channel zoë and wean off of Cardizem drip. -Neurology/electrophysiology service is following -Continue Eliquis 2. Acute on chronic diastolic congestive heart failure NYHA class III -Continue IV Lasix -Clinically improving 3. Morbid obesity 4. DVT prophylaxis -Continue Eliquis
[2020-11-19] MEDS: Furosemide 40 MG TAB PO SCH (13:20)
--- NOTE | 2020-11-19 13:34 | PDOC.EP ---
- Subjective Date: 11/19/20 Time: 08:00 Interval History: just had EZRA with successful CV. in recovery. - Review of Systems ROS unobtainable: due to mental status - Objective Allergies/Adverse Reactions: Allergies Allergy/AdvReac Type Severity Reaction Status Date / Time No Known Allergies Allergy Verified 11/16/20 16:04 Current Medications Acetaminophen (Acetaminophen 325 Mg Tab) 650 mg PO Q6H PRN PRN Reason: Headache/Fever or Pain Last Admin: 11/18/20 20:52 Dose: 650 mg Documented by: Apixaban (Apixaban 5 Mg Tab) 5 mg PO BID [facility] Last Admin: 11/19/20 09:47 Dose: 5 mg Documented by: Calcium Carbonate (Calcium Carbonate 500 Mg Chewtab) 1,000 mg PO DAILYPRN PRN PRN Reason: Heartburn or Indigestion Diltiazem HCl (Diltiazem Hcl 30 Mg Tablet) 60 mg PO Q6HR [facility] Last Admin: 11/19/20 11:40 Dose: 60 mg Documented by: Flecainide Acetate (Flecainide 50 Mg Tab) 100 mg PO Q12HR [facility] Last Admin: 11/19/20 09:47 Dose: 100 mg Documented by: Furosemide (Furosemide 40 Mg Tab) 40 mg PO 0900,1400 [facility] Last Admin: 11/19/20 13:20 Dose: 40 mg Documented by: Loratadine (Loratadine 10 Mg Tab) 10 mg PO DAILYPRN PRN PRN Reason: Allergies Promethazine HCl (Promethazine Hcl 25 Mg/Ml Vial) 25 mg IM/IV Q6H PRN PRN Reason: Nausea/Vomiting Last Admin: 11/18/20 23:51 Dose: 25 mg Documented by: Sodium Chloride (Flush - Normal Saline 10 Ml Syringe) 10 ml IVF Q12HR IDALMIS Last Admin: 11/19/20 09:48 Dose: 10 ml Documented by: Sodium Chloride (Flush - Normal Saline 10 Ml Syringe) 10 ml IVF PRN PRN PRN Reason: Saline Flush Vital Signs & Weight: Vital Signs Temp Pulse Resp BP Pulse Ox 11/19/20 12:00 98.6 F 85 26 H 154/95 H 97 11/19/20 09:30 97 11/19/20 09:15 98.4 F 86 26 H 166/98 H 97 11/19/20 08:17 94 L 11/19/20 06:37 98.3 F 91 20 147/89 H 94 L 11/19/20 04:00 97.3 F L 86 18 150/95 H 96 11/19/20 02:39 98.4 F 85 24 H 105/62 95 Weight 493 lb 6.4 oz I/O: I/O 11/18/20 11/19/20 11/20/20 06:59 06:59 06:59 Intake Total 1860 1586 Output Total 1600 1050 Balance 260 536 - Quality Measures Condition: Atrial Fibrillation/Flutter (hx or current) CV meds: Eliquis: Yes - Physical Exam General: other (recovering from sedation) Neck: supple neck, midline trachea, no JVD/HJR, no masses, no bruit, no lymphadenopathy, no thromegaly Cardiology: regular rate and rhythm, no murmur Lungs: no wheeze, rales, rhonchi, decreased breath sounds Abdomen: unremarkable, active bowel sounds Extremities: dry, strong pulses, + edema B - Labs Result Diagrams: 11/19/20 04:14 11/19/20 09:26 - EKG Interpretation EKG Method: Telemetry EKG shows: Sinus rhythm - Assessment/Plan Assessment/Plan: 1. Persisting atrial flutter with RVR, possibly CTI dependent. 2. Congestive heart failure, diastolic heart failure. Jean to be related to tachycardia a. 11/17/2020, echocardiogram, LVEF 60% to 65%, concentric LVH, moderately dilated left atrium, mild MR, LA 5.44 cm. 3. Morbid obesity, approximately 490 pounds, BMI of 82. 4. Obstructive sleep apnea. 5. Osteoarthritis. s/p EZRA with successful CV. Continue flecainide 100mg BID, diltiazem, and Eliquis. ECG to assess QRS in AM. Medical management of her arrhythmias unless drastic weight loss is achieved.
[2020-11-19] MEDS: Acetaminophen 325 MG TAB PO PRN (20:05)
[2020-11-20] MEDS: Apixaban 5 MG TAB PO SCH ×2 (09:16→21:01)
[2020-11-20] MEDS: Flecainide 50 MG TAB PO SCH ×2 (09:17→21:01)
[2020-11-20] MEDS: Furosemide 40 MG TAB PO SCH ×2 (09:17→14:43)
[2020-11-20] MEDS ORDERED: Insulin Regular 300 UNITS/3 ML VIAL IVP SCH ×2 (13:30→20:15)
[2020-11-20] MEDS ORDERED: Dextrose 50% Abboject 50 ML SYRINGE SLOW IVP SCH ×2 (13:30→20:15)
[2020-11-20] MEDS ORDERED: Albuterol Sulfate 2.5 mg/3 ml Neb NEB SCH ×2 (13:30→20:15)
--- NOTE | 2020-11-20 13:31 | PDOC.HOSPP ---
- Subjective Encounter Date: 11/20/20 Encounter Time: 13:31 Subjective: Patient seen for follow-up regarding his responsiveness. Wakes up to voice, denies chest pain or shortness of breath. - Objective Vital Signs & Weight: Vital Signs (12 hours) Temp Pulse Resp BP BP BP Pulse Ox 11/20/20 12:00 98.4 F 79 32 H 181/63 H 98 11/20/20 09:17 172/99 H 11/20/20 09:16 89 L 11/20/20 07:52 98.1 F 85 30 H 172/99 H 89 L 11/20/20 07:43 95 11/20/20 06:00 97.0 F L 82 32 H 136/77 91 L 11/20/20 04:00 97.5 F L 81 22 H 142/71 H 91 L 11/20/20 02:00 97.0 F L 82 36 H 163/88 H 92 L Weight Weight 493 lb 6.4 oz I&O: 11/19/20 11/20/20 11/21/20 06:59 06:59 06:59 Intake Total 1586 660 100 Output Total 1050 350 200 Balance 536 310 -100 Result Diagrams: 11/19/20 04:14 11/19/20 09:26 Additional Labs: Labs and MAR reviewed by ok Hospitalist ROS - Review of Systems Cardiovascular: denies: chest pain, palpitations, orthopnea, paroxysmal noc. dyspnea, edema, light headedness Gastrointestinal: denies: nausea, vomiting, abdominal pain, diarrhea, constipation, melena, hematochezia - Medication Medications: Active Medications Generic Name Dose Route Start Last Admin Trade Name Freq PRN Reason Stop Dose Admin Acetaminophen 650 mg 11/17/20 16:29 11/19/20 20:05 Acetaminophen 325 Mg Tab PO 650 mg Q6H PRN Administration Headache/Fever or Pain Apixaban 5 mg 11/17/20 09:00 11/20/20 09:16 Apixaban 5 Mg Tab PO 5 mg BID IDALMIS Administration Diltiazem HCl 60 mg 11/18/20 12:00 11/20/20 07:18 Diltiazem Hcl 30 Mg Tablet PO 11/20/20 06:01 Not Given Q6HR IDALMIS Diltiazem HCl 240 mg 11/20/20 09:00 11/20/20 09:17 Diltiazem Hcl Cd 240 Mg Capsule PO 240 mg DAILY IDALMIS Administration Flecainide Acetate 100 mg 11/18/20 21:00 11/20/20 09:17 Flecainide 50 Mg Tab PO 100 mg Q12HR IDALMIS Administration Furosemide 40 mg 11/19/20 14:00 11/20/20 09:17 Furosemide 40 Mg Tab PO 40 mg 0900,1400 IDALMIS Administration Promethazine HCl 25 mg 11/18/20 19:02 11/18/20 23:51 Promethazine Hcl 25 Mg/Ml Vial IM/IV 25 mg Q6H PRN Administration Nausea/Vomiting Sodium Chloride 10 ml 11/18/20 21:00 11/20/20 09:18 Flush - Normal Saline 10 Ml Syringe IVF 10 ml Q12HR IDALMIS Administration Hospitalist Exam Vitals: Vital Signs (12 hours) Temp Pulse Resp BP BP BP Pulse Ox 11/20/20 12:00 98.4 F 79 32 H 181/63 H 98 11/20/20 09:17 172/99 H 11/20/20 09:16 89 L 11/20/20 07:52 98.1 F 85 30 H 172/99 H 89 L 11/20/20 07:43 95 11/20/20 06:00 97.0 F L 82 32 H 136/77 91 L 11/20/20 04:00 97.5 F L 81 22 H 142/71 H 91 L 11/20/20 02:00 97.0 F L 82 36 H 163/88 H 92 L Weight Weight 493 lb 6.4 oz General - other findings: Morbid obesity ENT: moist mucosa Neck: supple Heart: RRR Respiratory: CTAB Gastrointestinal: soft, non-tender Skin: no rashes Psychiatric: normal affect, normal behavior Hosp A/P - Plan -Assessment/plan 1. Acute metabolic encephalopathy -Patient's oxygen saturations are in high 90s, likely secondary to CO2 ret ention. Maintain oxygen saturation 90 to 94%. Continue to monitor. 2. Hyperkalemia -Administer insulin, dextrose, beta agonist and Kayexalate. Recheck potassium level. 3. Acute on chronic diastolic congestive heart failure NYHA class III -Continue IV Lasix -Clinically improving 4. Morbid obesity 5. Atrial fibrillation in RVR/A.flutter -Status post cardioversion,
--- NOTE | 2020-11-20 14:30 | PDOC.EP ---
- Subjective Date: 11/20/20 Time: 14:28 Interval History: no changes overnight. remains in SR - Review of Systems Constitutional: denies: chills, fever, malaise, sweats, weakness, other Respiratory: denies: cough, dry, hemoptysis, pleuritic pain, shortness of breath, SOB with excertion, sputum, wheezing, other Cardiology: denies: chest pain, edema, heart racing, light headedness, paroxysmal noc. dyspnea, orthopnea, palpitations, passing out, pleuritic pain, pressure, swelling, other Gastrointestinal: denies: abdominal pain, constipation, diarrhea, hematochezia, melena, nausea, vomitting, other Musculoskeletal: denies: unstable gait, falls, neck pain, shoulder pain, arm pain, hand pain, leg pain, foot pain, other - Objective Allergies/Adverse Reactions: Allergies Allergy/AdvReac Type Severity Reaction Status Date / Time No Known Allergies Allergy Verified 11/16/20 16:04 Current Medications Acetaminophen (Acetaminophen 325 Mg Tab) 650 mg PO Q6H PRN PRN Reason: Headache/Fever or Pain Last Admin: 11/19/20 20:05 Dose: 650 mg Documented by: Albuterol Sulfate (Albuterol Sulfate 2.5 Mg/3 Ml Neb) 10 mg NEB NOW [facility] Stop: 11/20/20 15:00 Apixaban (Apixaban 5 Mg Tab) 5 mg PO BID [facility] Last Admin: 11/20/20 09:16 Dose: 5 mg Documented by: Calcium Carbonate (Calcium Carbonate 500 Mg Chewtab) 1,000 mg PO DAILYPRN PRN PRN Reason: Heartburn or Indigestion Dextrose/Water (Dextrose 50% Abboject 50 Ml Syringe) 25 gm SLOW IVP NOW [facility] Stop: 11/20/20 15:00 Last Admin: 11/20/20 14:23 Dose: 25 gm Documented by: Diltiazem HCl (Diltiazem Hcl 30 Mg Tablet) 60 mg PO Q6HR [facility] Stop: 11/20/20 06:01 Last Admin: 11/20/20 07:18 Dose: Not Given Documented by: Diltiazem HCl (Diltiazem Hcl Cd 240 Mg Capsule) 240 mg PO DAILY [facility] Last Admin: 11/20/20 09:17 Dose: 240 mg Documented by: Flecainide Acetate (Flecainide 50 Mg Tab) 100 mg PO Q12HR [facility] Last Admin: 11/20/20 09:17 Dose: 100 mg Documented by: Furosemide (Furosemide 40 Mg Tab) 40 mg PO 0900,1400 [facility] Last Admin: 11/20/20 09:17 Dose: 40 mg Documented by: Insulin Human Regular (Insulin Regular 300 Units/3 Ml Vial) 10 units IVP NOW [facility] Stop: 11/20/20 15:00 Last Admin: 11/20/20 14:21 Dose: 10 unit Documented by: Loratadine (Loratadine 10 Mg Tab) 10 mg PO DAILYPRN PRN PRN Reason: Allergies Promethazine HCl (Promethazine Hcl 25 Mg/Ml Vial) 25 mg IM/IV Q6H PRN PRN Reason: Nausea/Vomiting Last Admin: 11/18/20 23:51 Dose: 25 mg Documented by: Sodium Chloride (Flush - Normal Saline 10 Ml Syringe) 10 ml IVF Q12HR [facility] Last Admin: 11/20/20 09:18 Dose: 10 ml Documented by: Sodium Chloride (Flush - Normal Saline 10 Ml Syringe) 10 ml IVF PRN PRN PRN Reason: Saline Flush Sodium Polystyrene Sulfonate (Sodium Polystyrene Sulfonate 15 Gm/60 Ml Bot) 30 gm PO NOW [facility] Stop: 11/20/20 16:00 Last Admin: 11/20/20 14:24 Dose: 30 gm Documented by: Vital Signs & Weight: Vital Signs Temp Pulse Resp BP BP BP Pulse Ox 11/20/20 12:00 98.4 F 79 32 H 181/63 H 98 11/20/20 09:17 172/99 H 11/20/20 09:16 89 L 11/20/20 07:52 98.1 F 85 30 H 172/99 H 89 L 11/20/20 07:43 95 11/20/20 06:00 97.0 F L 82 32 H 136/77 91 L 11/20/20 04:00 97.5 F L 81 22 H 142/71 H 91 L Weight 493 lb 6.4 oz I/O: I/O 11/19/20 11/20/20 11/21/20 06:59 06:59 06:59 Intake Total 1586 660 100 Output Total 1050 350 200 Balance 536 310 -100 - Quality Measures Condition: Atrial Fibrillation/Flutter (hx or current) CV meds: Eliquis: Yes - Physical Exam General: alert & oriented x3, no apparent distress, speech clear, affect appropriate HEENT: mucus membranes moist, normocephaly Neck: supple neck, midline trachea, no JVD/HJR, no masses, no bruit, no lymphadenopathy, no thromegaly Cardiology: regular rate and rhythm, no murmur, regular rate, regular rhythm, PMI nondisplaced Lungs: no wheeze, rales, rhonchi, decreased breath sounds Neurology: cranial nerve 2-12 intact, grossly intact, no lateralizing findings Extremities: dry, strong pulses, warm - Labs Result Diagrams: 11/19/20 04:14 11/19/20 09:26 - EKG Interpretation EKG Method: Telemetry EKG shows: Sinus rhythm - Assessment/Plan Assessment/Plan: 1. Persisting atrial flutter with RVR, possibly CTI dependent. 2. Congestive heart failure, diastolic heart failure. [place] to be related to tachycardia a. 11/17/2020, echocardiogram, LVEF 60% to 65%, concentric LVH, moderately dilated left atrium, mild MR, LA 5.44 cm. 3. Morbid obesity, approximately 490 pounds, BMI of 82. 4. Obstructive sleep apnea. 5. Osteoarthritis. s/p EZRA with successful CV 11/19/20. Continue flecainide 100mg BID, diltiazem, and Eliquis. Medical management of her arrhythmias unless drastic weight loss is achieved. ECG stable on flecainide. OK for DC by EP on the current medications. follow up in 6 weeks
[2020-11-20 16:41] LABS: Potassium 5.2 mmol/L (3.5-5.1)
--- NOTE | 2020-11-20 17:31 | PDOC.CPN ---
- Subjective Date: 11/20/20 Time: 17:28 Interval history: She remains in sinus. She seems somnolent and doses off to sleep very easily. - Review of Systems General: denies: fever/chills, weight/appetite/sleep changes, night sweats, fatigue Respiratory: denies: cough, congestion, shortness of breath, exercise intolerance Cardiovascular: reports: edema. denies: chest pain, palpitation, paroxysmal nocturnal dyspnea, orthopnea Gastrointestinal: denies: nausea, vomiting, diarrhea, constipation, abd pain, GI bleeding Musculoskeletal: denies: pain, tenderness, stiffness, swelling, arthritis/arthralgias Neurological: denies: numbness, syncope, seizure, weakness - Objective Allergies/Adverse Reactions: Allergies Allergy/AdvReac Type Severity Reaction Status Date / Time No Known Allergies Allergy Verified 11/16/20 16:04 Visit Medications: Current Medications Acetaminophen (Acetaminophen 325 Mg Tab) 650 mg PO Q6H PRN PRN Reason: Headache/Fever or Pain Last Admin: 11/19/20 20:05 Dose: 650 mg Documented by: Apixaban (Apixaban 5 Mg Tab) 5 mg PO BID [facility] Last Admin: 11/20/20 09:16 Dose: 5 mg Documented by: Calcium Carbonate (Calcium Carbonate 500 Mg Chewtab) 1,000 mg PO DAILYPRN PRN PRN Reason: Heartburn or Indigestion Diltiazem HCl (Diltiazem Hcl 30 Mg Tablet) 60 mg PO Q6HR [facility] Stop: 11/20/20 06:01 Last Admin: 11/20/20 07:18 Dose: Not Given Documented by: Diltiazem HCl (Diltiazem Hcl Cd 240 Mg Capsule) 240 mg PO DAILY [facility] Last Admin: 11/20/20 09:17 Dose: 240 mg Documented by: Flecainide Acetate (Flecainide 50 Mg Tab) 100 mg PO Q12HR [facility] Last Admin: 11/20/20 09:17 Dose: 100 mg Documented by: Furosemide (Furosemide 40 Mg Tab) 40 mg PO 0900,1400 [facility] Last Admin: 11/20/20 14:43 Dose: 40 mg Documented by: Hydralazine HCl (Hydralazine 20 Mg/Ml Vial) 10 mg SLOW IVP Q6H PRN PRN Reason: SBP Greater Than 170 Loratadine (Loratadine 10 Mg Tab) 10 mg PO DAILYPRN PRN PRN Reason: Allergies Promethazine HCl (Promethazine Hcl 25 Mg/Ml Vial) 25 mg IM/IV Q6H PRN PRN Reason: Nausea/Vomiting Last Admin: 11/18/20 23:51 Dose: 25 mg Documented by: Sodium Chloride (Flush - Normal Saline 10 Ml Syringe) 10 ml IVF Q12HR [facility] Last Admin: 11/20/20 09:18 Dose: 10 ml Documented by: Sodium Chloride (Flush - Normal Saline 10 Ml Syringe) 10 ml IVF PRN PRN PRN Reason: Saline Flush Vital Signs & Weight: Vital Signs Temp Pulse Resp BP BP BP Pulse Ox 11/20/20 16:48 74 22 H 184/104 H 94 L 11/20/20 16:00 97.6 F 78 24 H 186/105 H 11/20/20 15:21 78 25 H 100 11/20/20 13:28 76 22 H 189/100 H 92 L 11/20/20 12:00 98.4 F 79 32 H 181/63 H 98 11/20/20 09:17 172/99 H 11/20/20 09:16 89 L 11/20/20 07:52 98.1 F 85 30 H 172/99 H 89 L 11/20/20 07:43 95 11/20/20 06:00 97.0 F L 82 32 H 136/77 91 L Weight 493 lb 6.4 oz - Physical Exam General: alert & oriented x3 HEENT: mucus membranes moist Neck: supple neck Cardiac: regular rate and rhythm Lungs: normal breath sounds Neuro: grossly intact Abdomen: active bowel sounds Extremities: 1+ LE edema Skin: clear Musculoskeletal: no pain - Labs Result Diagrams: 11/19/20 04:14 11/20/20 16:13 Troponin/CKMB Troponin I Less than 0.010 ng/mL (< 0.028) 11/16/20 17:50 - Telemetry Sinus rhythms and dysrhythmias: sinus rhythm - Assessment/Plan Assessment/Plan: 1. Atrial flutter with variable AV block, s/p DCCV. 2. Acute on chronic diastolic heart failure, improved. 3. Morbid obesity 4. Sleep apnea 5. Anemia at baseline. 6. Hyperkalemia PLAN: - Remains in sinus. - Eliquis for stroke prophylaxis. - On flecainide and diltiazem. - Fluid status is probably mildly up still. Continue PO lasix for now. - Home if potassium better tomorrow.
[2020-11-20] MEDS: hydrALAZINE 20 MG/ML VIAL SLOW IVP PRN (21:02)
[2020-11-21] MEDS ORDERED: hydrALAZINE 20 MG/ML VIAL SLOW IVP SCH (01:15)
[2020-11-21] MEDS: hydrALAZINE 20 MG/ML VIAL SLOW IVP PRN ×2 (03:19→18:20)
[2020-11-21 07:07] LABS: #Eosinphils 0.1 thou/uL (0.0-0.7); #Lymphocytes 1.9 thou/uL (1.20-3.40); #Monocytes 0.9 thou/uL (0.11-0.59); #Neutrophils 10.5 thou/uL (1.40-6.50); %Basophils 0.2 % (0.0-1.0); %Eosinophils 0.5 % (0.0-10.0); %Lymphocytes 14.2 % (21.0-51.0); %Monocytes 6.4 % (0.0-10.0); %Neutrophils 78.8 % (42.0-75.0); Hemoglobin 11.1 g/dL (12.0-16.0); Mean Corpuscular HGB CONC 30.3 g/dL (32.0-36.0); Mean Corpuscular Hemoglobin 27.3 pg (27.0-31.0); Mean Corpuscular Volume 90.3 fL (78.0-98.0); Mean Platelet Volume 7.1 fL (7.4-10.4); Platelet Count 363 thou/uL (130-400); RBC Distribution Width 17.9 % (11.5-14.5); Red Blood Cell (RBC) Count 4.07 mill/uL (4.20-5.40); White Blood Cell (WBC) Count 13.3 thou/uL (4.8-10.8)
[2020-11-21 07:22] LABS: Anion Gap 16 mmol/L (10-20); BUN (Urea Nitrogen) 19 mg/dL (7.0-18.7); Calc. Creatinine Clearance 327 mL/min (70-130); Carbon Dioxide 32 mmol/L (22-29); Chloride 93 mmol/L (98-107); Glucose 136 mg/dL (70-105); Potassium 4.8 mmol/L (3.5-5.1); Sodium 136 mmol/L (136-145)
[2020-11-21] MEDS: Flecainide 50 MG TAB PO SCH ×2 (08:47→20:27)
[2020-11-21] MEDS: Apixaban 5 MG TAB PO SCH ×2 (08:47→21:17)
[2020-11-21] MEDS: Furosemide 40 MG TAB PO SCH ×2 (08:47→13:26)
--- NOTE | 2020-11-21 14:54 | CCLSPC ---
PROCEDURE PERFORMED: Direct current synchronized cardioversion. PRE-PROCEDURE DIAGNOSIS: Atrial flutter. SUMMARY: Ms. Haley is a very pleasant 45-year-old female, who comes to the procedure area for a planned synchronized cardioversion. After the EZRA was performed that ruled out any thrombus in the left atrial appendage. One single synchronized cardioversion shock was delivered at 200 joules successfully converting from atrial flutter into sinus rhythm. The patient tolerated the procedure well. RECOMMENDATIONS: 1. Continue flecainide at 100 mg twice a day. 2. Continue Eliquis at 5 mg twice a day. 3. We will transition diltiazem to p.o. Job ID: [id number]
--- NOTE | 2020-11-21 15:05 | ECHO ---
PROCEDURE: Transesophageal echo. The Anesthesiology Department provided with sedation for the patient. Please see their notes for details. After adequate sedation was achieved, transesophageal probe was inserted into the mouth and into the esophagus. Multiplanar views were then obtained. Left ventricle appears to be normal in size with normal wall thickness. Systolic function is 50% to 55%. Left atrium is dilated. Left atrial appendage is small with no evidence of mass or thrombus and normal velocities. Right atrium is dilated. Right ventricle is dilated with reduced RV systolic function. Mitral valve is structurally normal. There is mild MR. Tricuspid valve structurally normal. There is moderate TR. Aortic valve is structurally normal. There is no stenosis or regurgitation. Pulmonary valve not well seen. CONCLUSIONS: 1. Systolic function at 50% to 55%. 2. Dilated left atrium. 3. Left atrial appendage is without mass or thrombus with normal velocities. 4. Patient in atrial flutter during study. 5. Dilated right-sided chambers suggestive of right-sided pressure overload consistent with patient's history of severe obstructive sleep apnea. Job ID: [id number]
--- NOTE | 2020-11-21 16:39 | PDOC.HOSPP ---
- Subjective Encounter Date: 11/21/20 Encounter Time: 16:32 Subjective: Patient seen for follow-up for CHF exacerbation. Reports feeling better. - Objective Vital Signs & Weight: Vital Signs (12 hours) Temp Pulse Pulse Pulse Resp BP BP 11/21/20 15:35 98.2 F 80 36 H 11/21/20 13:40 80 79 197/96 H 182/92 H 11/21/20 11:08 98.3 F 85 38 H 11/21/20 08:00 98.1 F 89 36 H 11/21/20 07:15 BP Pulse Ox 11/21/20 15:35 144/104 H 98 11/21/20 13:40 11/21/20 11:08 167/88 H 92 L 11/21/20 08:00 161/93 H 94 L 11/21/20 07:15 97 Weight Weight 493 lb 6.4 oz I&O: 11/20/20 11/21/20 11/22/20 06:59 06:59 06:59 Intake Total 660 790 120 Output Total 350 1750 Balance 310 -960 120 Result Diagrams: 11/21/20 07:00 11/21/20 07:00 Additional Labs: I reviewed patient's labs and MAR Hospitalist ROS - Review of Systems Cardiovascular: denies: chest pain, palpitations, orthopnea, paroxysmal noc. dyspnea, edema, light headedness Gastrointestinal: denies: nausea, vomiting, abdominal pain, diarrhea, constipation, melena, hematochezia - Medication Medications: Active Medications Generic Name Dose Route Start Last Admin Trade Name Freq PRN Reason Stop Dose Admin Acetaminophen 650 mg 11/17/20 16:29 11/19/20 20:05 Acetaminophen 325 Mg Tab PO 650 mg Q6H PRN Administration Headache/Fever or Pain Apixaban 5 mg 11/17/20 09:00 11/21/20 08:47 Apixaban 5 Mg Tab PO 5 mg BID [facility] Administration Diltiazem HCl 60 mg 11/18/20 12:00 11/20/20 07:18 Diltiazem Hcl 30 Mg Tablet PO 11/20/20 06:01 Not Given Q6HR [facility] Diltiazem HCl 240 mg 11/20/20 09:00 11/21/20 08:46 Diltiazem Hcl Cd 240 Mg Capsule PO 240 mg DAILY [facility] Administration Flecainide Acetate 100 mg 11/18/20 21:00 11/21/20 08:47 Flecainide 50 Mg Tab PO 100 mg Q12HR [facility] Administration Furosemide 40 mg 11/19/20 14:00 11/21/20 13:26 Furosemide 40 Mg Tab PO 40 mg 0900,1400 [facility] Administration Hydralazine HCl 10 mg 11/20/20 17:22 11/21/20 03:19 Hydralazine 20 Mg/Ml Vial SLOW IVP 10 mg Q6H PRN Administration SBP Greater Than 170 Promethazine HCl 25 mg 11/18/20 19:02 11/18/20 23:51 Promethazine Hcl 25 Mg/Ml Vial IM/IV 25 mg Q6H PRN Administration Nausea/Vomiting Sodium Chloride 10 ml 11/18/20 21:00 11/21/20 08:48 Flush - Normal Saline 10 Ml Syringe IVF 10 ml Q12HR [facility] Administration Hospitalist Exam Vitals: Vital Signs (12 hours) Temp Pulse Pulse Pulse Resp BP BP 11/21/20 15:35 98.2 F 80 36 H 11/21/20 13:40 80 79 197/96 H 182/92 H 11/21/20 11:08 98.3 F 85 38 H 11/21/20 08:00 98.1 F 89 36 H 11/21/20 07:15 BP Pulse Ox 11/21/20 15:35 144/104 H 98 11/21/20 13:40 11/21/20 11:08 167/88 H 92 L 11/21/20 08:00 161/93 H 94 L 11/21/20 07:15 97 Weight Weight 493 lb 6.4 oz General Appearance: awake alert Eye: anicteric sclera ENT: normocephalic atraumatic Neck: supple Heart: RRR Respiratory: CTAB Gastrointestinal: soft, non-tender Extremities: 2+ LE edema Skin: no rashes Psychiatric: normal affect, normal behavior Hosp A/P - Plan -Assessment/plan 1. Acute on chronic diastolic congestive heart failure NYHA class III -Continue IV Lasix -Clinically improving 2. Atrial fibrillation in RVR/A.flutter -Status post cardioversion, 3. Hyperkalemia -Resolved 4. Acute metabolic encephalopathy -Resolved 5. Morbid obesity
--- NOTE | 2020-11-21 16:56 | PDOC.CPN ---
- Subjective Date: 11/21/20 Time: 16:56 Interval history: She is feeling better. She is still somnolent and her O2 sat is only 90% on room air. - Review of Systems General: reports: fatigue. denies: fever/chills, weight/appetite/sleep changes, night sweats Respiratory: reports: shortness of breath, exercise intolerance. denies: cough, congestion Cardiovascular: reports: edema. denies: chest pain, palpitation, paroxysmal nocturnal dyspnea, orthopnea Musculoskeletal: denies: pain, tenderness, stiffness, swelling, arthritis/arthralgias Neurological: denies: numbness, syncope, seizure, weakness - Objective Allergies/Adverse Reactions: Allergies Allergy/AdvReac Type Severity Reaction Status Date / Time No Known Allergies Allergy Verified 11/16/20 16:04 Visit Medications: Current Medications Acetaminophen (Acetaminophen 325 Mg Tab) 650 mg PO Q6H PRN PRN Reason: Headache/Fever or Pain Last Admin: 11/19/20 20:05 Dose: 650 mg Documented by: Apixaban (Apixaban 5 Mg Tab) 5 mg PO BID [facility] Last Admin: 11/21/20 08:47 Dose: 5 mg Documented by: Calcium Carbonate (Calcium Carbonate 500 Mg Chewtab) 1,000 mg PO DAILYPRN PRN PRN Reason: Heartburn or Indigestion Diltiazem HCl (Diltiazem Hcl 30 Mg Tablet) 60 mg PO Q6HR [facility] Stop: 11/20/20 06:01 Last Admin: 11/20/20 07:18 Dose: Not Given Documented by: Diltiazem HCl (Diltiazem Hcl Cd 240 Mg Capsule) 240 mg PO DAILY [facility] Last Admin: 11/21/20 08:46 Dose: 240 mg Documented by: Flecainide Acetate (Flecainide 50 Mg Tab) 100 mg PO Q12HR [facility] Last Admin: 11/21/20 08:47 Dose: 100 mg Documented by: Furosemide (Furosemide 40 Mg Tab) 40 mg PO 0900,1400 [facility] Last Admin: 11/21/20 13:26 Dose: 40 mg Documented by: Hydralazine HCl (Hydralazine 20 Mg/Ml Vial) 10 mg SLOW IVP Q6H PRN PRN Reason: SBP Greater Than 170 Last Admin: 11/21/20 03:19 Dose: 10 mg Documented by: Loratadine (Loratadine 10 Mg Tab) 10 mg PO DAILYPRN PRN PRN Reason: Allergies Promethazine HCl (Promethazine Hcl 25 Mg/Ml Vial) 25 mg IM/IV Q6H PRN PRN Reason: Nausea/Vomiting Last Admin: 11/18/20 23:51 Dose: 25 mg Documented by: Sodium Chloride (Flush - Normal Saline 10 Ml Syringe) 10 ml IVF Q12HR [facility] Last Admin: 11/21/20 08:48 Dose: 10 ml Documented by: Sodium Chloride (Flush - Normal Saline 10 Ml Syringe) 10 ml IVF PRN PRN PRN Reason: Saline Flush Vital Signs & Weight: Vital Signs Temp Pulse Pulse Pulse Resp BP BP 11/21/20 15:35 98.2 F 80 36 H 11/21/20 13:40 80 79 197/96 H 182/92 H 11/21/20 11:08 98.3 F 85 38 H 11/21/20 08:00 98.1 F 89 36 H 11/21/20 07:15 BP Pulse Ox 11/21/20 15:35 144/104 H 98 11/21/20 13:40 11/21/20 11:08 167/88 H 92 L 11/21/20 08:00 161/93 H 94 L 11/21/20 07:15 97 Weight 493 lb 6.4 oz - Physical Exam General: alert & oriented x3 HEENT: mucus membranes moist Neck: supple neck Cardiac: regular rate and rhythm Lungs: clear to auscultation Neuro: grossly intact Abdomen: active bowel sounds Extremities: 1+ LE edema Skin: clear Musculoskeletal: no pain - Labs Result Diagrams: 11/21/20 07:00 11/21/20 07:00 Troponin/CKMB Troponin I Less than 0.010 ng/mL (< 0.028) 11/16/20 17:50 - Telemetry Sinus rhythms and dysrhythmias: sinus rhythm - Assessment/Plan Assessment/Plan: 1. Atrial flutter with variable AV block, s/p DCCV. 2. Acute on chronic diastolic heart failure, improved. 3. Morbid obesity 4. Sleep apnea 5. Anemia at baseline. 6. Hyperkalemia PLAN: - Remains in sinus. - Eliquis for stroke prophylaxis. - On flecainide and diltiazem. - Will give one dose IV lasix today. - Re evaluate in the morning.
[2020-11-21] MEDS ORDERED: Furosemide 40 MG/4 ML VIAL SLOW IVP SCH (17:00)
[2020-11-21] MEDS: Enalaprilat Dihydrate 1.25 MG/ML VIAL SLOW IVP PRN (19:16)
[2020-11-22 05:26] LABS: Anion Gap 16 mmol/L (10-20); BUN (Urea Nitrogen) 15 mg/dL (7.0-18.7); Calc. Creatinine Clearance 350 mL/min (70-130); Calcium 9.2 mg/dL (7.8-10.44); Carbon Dioxide 36 mmol/L (22-29); Chloride 89 mmol/L (98-107); Glucose 115 mg/dL (70-105); Potassium 4.3 mmol/L (3.5-5.1); Sodium 137 mmol/L (136-145)
[2020-11-22 06:12] LABS: #Eosinphils 0.1 thou/uL (0.0-0.7); #Lymphocytes 1.7 thou/uL (1.20-3.40); #Monocytes 0.8 thou/uL (0.11-0.59); #Neutrophils 9.8 thou/uL (1.40-6.50); %Basophils 0.2 % (0.0-1.0); %Eosinophils 0.5 % (0.0-10.0); %Lymphocytes 13.7 % (21.0-51.0); %Monocytes 6.3 % (0.0-10.0); %Neutrophils 79.4 % (42.0-75.0); Hemoglobin 11.9 g/dL (12.0-16.0); Mean Corpuscular HGB CONC 28.4 g/dL (32.0-36.0); Mean Corpuscular Hemoglobin 25.6 pg (27.0-31.0); Mean Corpuscular Volume 90.2 fL (78.0-98.0); Mean Platelet Volume 7.4 fL (7.4-10.4); Platelet Count 362 thou/uL (130-400); RBC Distribution Width 18.1 % (11.5-14.5); Red Blood Cell (RBC) Count 4.65 mill/uL (4.20-5.40); White Blood Cell (WBC) Count 12.3 thou/uL (4.8-10.8)
[2020-11-22] MEDS: Diltiazem HCl CD 300 mg Capsule PO SCH (09:34)
[2020-11-22] MEDS: Apixaban 5 MG TAB PO SCH ×2 (09:36→20:59)
[2020-11-22] MEDS: Flecainide 50 MG TAB PO SCH ×2 (09:36→20:57)
[2020-11-22] MEDS: Furosemide 40 MG TAB PO SCH (09:36)
[2020-11-22] MEDS: Enalaprilat Dihydrate 1.25 MG/ML VIAL SLOW IVP PRN (11:32)
[2020-11-22] MEDS: hydrALAZINE 20 MG/ML VIAL SLOW IVP PRN (12:49)
--- NOTE | 2020-11-22 13:35 | PDOC.CPN ---
- Subjective Date: 11/22/20 Time: 13:33 Interval history: She is feeling better but still SOB. Talks in short sentences and still requires oxygen supplementation. Has numbness on right thigh. - Review of Systems General: reports: fatigue. denies: fever/chills, weight/appetite/sleep changes, night sweats Respiratory: reports: shortness of breath, exercise intolerance. denies: cough, congestion Cardiovascular: reports: edema. denies: chest pain, palpitation, paroxysmal nocturnal dyspnea, orthopnea Gastrointestinal: denies: nausea, vomiting, diarrhea, constipation, abd pain, GI bleeding Musculoskeletal: denies: pain, tenderness, stiffness, swelling, arthritis/arthralgias Neurological: denies: numbness, syncope, seizure, weakness - Objective Allergies/Adverse Reactions: Allergies Allergy/AdvReac Type Severity Reaction Status Date / Time No Known Allergies Allergy Verified 11/16/20 16:04 Visit Medications: Current Medications Acetaminophen (Acetaminophen 325 Mg Tab) 650 mg PO Q6H PRN PRN Reason: Headache/Fever or Pain Last Admin: 11/19/20 20:05 Dose: 650 mg Documented by: Apixaban (Apixaban 5 Mg Tab) 5 mg PO BID [facility] Last Admin: 11/22/20 09:36 Dose: 5 mg Documented by: Calcium Carbonate (Calcium Carbonate 500 Mg Chewtab) 1,000 mg PO DAILYPRN PRN PRN Reason: Heartburn or Indigestion Diltiazem HCl (Diltiazem Hcl 30 Mg Tablet) 60 mg PO Q6HR [facility] Stop: 11/20/20 06:01 Last Admin: 11/20/20 07:18 Dose: Not Given Documented by: Diltiazem HCl (Diltiazem Hcl Cd 300 Mg Capsule) 300 mg PO DAILY [facility] Last Admin: 11/22/20 09:34 Dose: 300 mg Documented by: Enalaprilat (Enalaprilat Dihydrate 1.25 Mg/Ml Vial) 2.5 mg SLOW IVP Q6H PRN PRN Reason: SBP Greater Than 180 Last Admin: 11/22/20 11:32 Dose: 2.5 mg Documented by: Flecainide Acetate (Flecainide 50 Mg Tab) 100 mg PO Q12HR [facility] Last Admin: 11/22/20 09:36 Dose: 100 mg Documented by: Furosemide (Furosemide 40 Mg Tab) 40 mg PO 0900,1400 [facility] Last Admin: 11/22/20 09:36 Dose: 40 mg Documented by: Hydralazine HCl (Hydralazine 20 Mg/Ml Vial) 10 mg SLOW IVP Q6H PRN PRN Reason: SBP Greater Than 170 Last Admin: 11/22/20 12:49 Dose: 10 mg Documented by: Loratadine (Loratadine 10 Mg Tab) 10 mg PO DAILYPRN PRN PRN Reason: Allergies Promethazine HCl (Promethazine Hcl 25 Mg/Ml Vial) 25 mg IM/IV Q6H PRN PRN Reason: Nausea/Vomiting Last Admin: 11/18/20 23:51 Dose: 25 mg Documented by: Sodium Chloride (Flush - Normal Saline 10 Ml Syringe) 10 ml IVF Q12HR [facility] Last Admin: 11/22/20 09:37 Dose: 10 ml Documented by: Sodium Chloride (Flush - Normal Saline 10 Ml Syringe) 10 ml IVF PRN PRN PRN Reason: Saline Flush Vital Signs & Weight: Vital Signs Temp Pulse Pulse Resp BP BP BP 11/22/20 12:49 86 11/22/20 12:08 11/22/20 12:00 97.6 F 86 24 H 190/86 H 11/22/20 11:32 190/96 H 11/22/20 10:27 96 172/90 H 11/22/20 09:34 90 11/22/20 08:00 97.8 F 91 30 H 189/92 H 11/22/20 04:00 97.2 F L 86 16 160/78 H 11/22/20 03:19 BP Pulse Ox 11/22/20 12:49 11/22/20 12:08 179/91 H 11/22/20 12:00 92 L 11/22/20 11:32 11/22/20 10:27 11/22/20 09:34 11/22/20 08:00 96 11/22/20 04:00 94 L 11/22/20 03:19 92 L Weight 487 lb 1.6 oz - Physical Exam General: alert & oriented x3 HEENT: mucus membranes moist Neck: supple neck Cardiac: regular rate and rhythm Lungs: clear to auscultation Neuro: grossly intact Abdomen: active bowel sounds Extremities: 1+ LE edema Skin: clear Musculoskeletal: normal range of motion - Labs Result Diagrams: 11/22/20 04:54 11/22/20 04:54 Troponin/CKMB Troponin I Less than 0.010 ng/mL (< 0.028) 11/16/20 17:50 - Telemetry Sinus rhythms and dysrhythmias: sinus rhythm - Assessment/Plan Assessment/Plan: 1. Atrial flutter with variable AV block, s/p DCCV. 2. Acute on chronic diastolic heart failure, improving. 3. Morbid obesity 4. Sleep apnea 5. Anemia at baseline. 6. Hyperkalemia, resolved. 7. HTN PLAN: - Remains in sinus. - Eliquis for stroke prophylaxis. - On flecainide and diltiazem. - Will restart daily BID IV lasix. - BP is very high and likely causing her to re accumalate fluid. Will start Coreg and Lisinopril and up titrate as tolerated.
--- NOTE | 2020-11-22 14:31 | RAD ---
CHEST ONE VIEW: Comparison: 11-16-2020 History: Shortness of breath FINDINGS: Stable cardiomegaly. Scattered interstitial and alveolar opacities are unchanged. No pleural effusion s. No pneumothorax. IMPRESSION: No change. Cardiomegaly with scattered interstitial and alveolar opacities which may represent conges tive heart failure. Superimposed pneumonia cannot be excluded. POS: [facility]
[2020-11-22] MEDS: Furosemide 40 MG/4 ML VIAL SLOW IVP SCH (16:25)
--- NOTE | 2020-11-22 18:02 | PDOC.HOSPP ---
- Subjective Encounter Date: 11/22/20 Encounter Time: 10:30 Subjective: Patient seen for follow-up regarding CHF exacerbation. Complains of numbness over the right thigh. Denies chest pain. - Objective Vital Signs & Weight: Vital Signs (12 hours) Temp Pulse Pulse Resp BP BP BP 11/22/20 16:31 24 H 11/22/20 16:00 98.5 F 87 30 H 159/79 H 11/22/20 13:34 86 11/22/20 12:49 86 11/22/20 12:08 11/22/20 12:00 97.6 F 86 24 H 190/86 H 11/22/20 11:32 190/96 H 11/22/20 10:27 96 172/90 H 11/22/20 09:34 90 11/22/20 08:00 97.8 F 91 30 H 189/92 H BP Pulse Ox 11/22/20 16:31 11/22/20 16:00 95 11/22/20 13:34 135/83 11/22/20 12:49 11/22/20 12:08 179/91 H 11/22/20 12:00 92 L 11/22/20 11:32 11/22/20 10:27 11/22/20 09:34 11/22/20 08:00 96 Weight Weight 487 lb 1.6 oz I&O: 11/21/20 11/22/20 11/23/20 06:59 06:59 06:59 Intake Total 790 220 120 Output Total 1750 2533 7647 Balance -960 -1405 -5895 Result Diagrams: 11/22/20 04:54 11/22/20 04:54 Additional Labs: Labs and MAR reviewed by [facility] Hospitalist ROS - Review of Systems Constitutional: reports: weakness Eyes: reports: pain Cardiovascular: denies: chest pain, palpitations, orthopnea, paroxysmal noc. dyspnea, edema, light headedness Gastrointestinal: denies: nausea, vomiting, abdominal pain, diarrhea, constipation, melena, hematochezia Neurological: reports: numbness - Medication Medications: Active Medications Generic Name Dose Route Start Last Admin Trade Name Freq PRN Reason Stop Dose Admin Acetaminophen 650 mg 11/17/20 16:29 11/19/20 20:05 Acetaminophen 325 Mg Tab PO 650 mg Q6H PRN Administration Headache/Fever or Pain Apixaban 5 mg 11/17/20 09:00 11/22/20 09:36 Apixaban 5 Mg Tab PO 5 mg BID [facility] Administration Diltiazem HCl 60 mg 11/18/20 12:00 11/20/20 07:18 Diltiazem Hcl 30 Mg Tablet PO 11/20/20 06:01 Not Given Q6HR [facility] Diltiazem HCl 300 mg 11/22/20 09:00 11/22/20 09:34 Diltiazem Hcl Cd 300 Mg Capsule PO 300 mg DAILY [facility] Administration Enalaprilat 2.5 mg 11/21/20 19:15 11/22/20 11:32 Enalaprilat Dihydrate 1.25 Mg/Ml Vial SLOW IVP 2.5 mg Q6H PRN Administration SBP Greater Than 180 Flecainide Acetate 100 mg 11/18/20 21:00 11/22/20 09:36 Flecainide 50 Mg Tab PO 100 mg Q12HR [facility] Administration Furosemide 60 mg 11/22/20 14:00 11/22/20 16:25 Furosemide 40 Mg/4 Ml Vial SLOW IVP 60 mg 0600,1400 [facility] Administration Hydralazine HCl 10 mg 11/20/20 17:22 11/22/20 12:49 Hydralazine 20 Mg/Ml Vial SLOW IVP 10 mg Q6H PRN Administration SBP Greater Than 170 Promethazine HCl 25 mg 11/18/20 19:02 11/18/20 23:51 Promethazine Hcl 25 Mg/Ml Vial IM/IV 25 mg Q6H PRN Administration Nausea/Vomiting Sodium Chloride 10 ml 11/18/20 21:00 11/22/20 09:37 Flush - Normal Saline 10 Ml Syringe IVF 10 ml Q12HR [facility] Administration Hospitalist Exam Vitals: Vital Signs (12 hours) Temp Pulse Pulse Resp BP BP BP 11/22/20 16:31 24 H 11/22/20 16:00 98.5 F 87 30 H 159/79 H 11/22/20 13:34 86 11/22/20 12:49 86 11/22/20 12:08 11/22/20 12:00 97.6 F 86 24 H 190/86 H 11/22/20 11:32 190/96 H 11/22/20 10:27 96 172/90 H 11/22/20 09:34 90 11/22/20 08:00 97.8 F 91 30 H 189/92 H BP Pulse Ox 11/22/20 16:31 11/22/20 16:00 95 11/22/20 13:34 135/83 11/22/20 12:49 11/22/20 12:08 179/91 H 11/22/20 12:00 92 L 11/22/20 11:32 11/22/20 10:27 11/22/20 09:34 11/22/20 08:00 96 Weight Weight 487 lb 1.6 oz General Appearance: awake alert General - other findings: Morbid obesity Eye: anicteric sclera ENT: moist mucosa Neck: supple Heart: RRR Respiratory: CTAB Gastrointestinal: soft Skin: no rashes Psychiatric: normal affect, normal behavior Hosp A/P - Plan -Assessment/plan 1. Acute on chronic diastolic congestive heart failure NYHA class III -Continue IV Lasix per cardiology -Clinically improving 2. Atrial fibrillation in RVR/A.flutter -Status post cardioversion -New Eliquis 3. Hyperkalemia -Resolved 4. Acute metabolic encephalopathy -Resolved 5. Morbid obesity 6. Thigh numbness -Continue Eliquis -Patient will not fit in our CT scanner
[2020-11-22] MEDS: Carvedilol 3.125 MG TAB PO SCH (18:45)
[2020-11-22] MEDS: Lisinopril 5 MG TAB PO SCH (20:59)
[2020-11-23] MEDS: hydrALAZINE 20 MG/ML VIAL SLOW IVP PRN (04:50)
[2020-11-23] MEDS: Furosemide 40 MG/4 ML VIAL SLOW IVP SCH ×2 (05:00→14:54)
[2020-11-23 05:02] LABS: #Eosinphils 0.1 thou/uL (0.0-0.7); #Lymphocytes 1.6 thou/uL (1.20-3.40); #Monocytes 0.8 thou/uL (0.11-0.59); #Neutrophils 8.2 thou/uL (1.40-6.50); %Basophils 0.1 % (0.0-1.0); %Eosinophils 1.3 % (0.0-10.0); %Lymphocytes 14.9 % (21.0-51.0); %Monocytes 7.2 % (0.0-10.0); %Neutrophils 76.4 % (42.0-75.0); Hemoglobin 12.9 g/dL (12.0-16.0); Mean Corpuscular HGB CONC 30.7 g/dL (32.0-36.0); Mean Corpuscular Hemoglobin 28.4 pg (27.0-31.0); Mean Corpuscular Volume 92.6 fL (78.0-98.0); Mean Platelet Volume 7.8 fL (7.4-10.4); Platelet Count 318 thou/uL (130-400); RBC Distribution Width 18.5 % (11.5-14.5); Red Blood Cell (RBC) Count 4.55 mill/uL (4.20-5.40); White Blood Cell (WBC) Count 10.7 thou/uL (4.8-10.8)
[2020-11-23 06:38] LABS: BUN (Urea Nitrogen) 15 mg/dL (7.0-18.7); Calc. Creatinine Clearance 347 mL/min (70-130); Calcium 9.4 mg/dL (7.8-10.44); Glucose 115 mg/dL (70-105)
[2020-11-23 06:46] LABS: Anion Gap 20 mmol/L (10-20); Carbon Dioxide 34 mmol/L (22-29); Chloride 91 mmol/L (98-107); Potassium 4.6 mmol/L (3.5-5.1); Sodium 140 mmol/L (136-145)
[2020-11-23] MEDS: Diltiazem HCl CD 300 mg Capsule PO SCH (08:56)
[2020-11-23] MEDS: Apixaban 5 MG TAB PO SCH ×2 (08:57→20:18)
[2020-11-23] MEDS: Carvedilol 3.125 MG TAB PO SCH ×2 (08:57→17:50)
[2020-11-23] MEDS: Flecainide 50 MG TAB PO SCH ×2 (08:57→20:17)
[2020-11-23] MEDS: Lisinopril 5 MG TAB PO SCH ×2 (08:58→20:17)
[2020-11-23] MEDS: Acetaminophen 325 MG TAB PO PRN ×2 (09:01→16:25)
--- NOTE | 2020-11-23 17:29 | PDOC.HOSPP ---
- Subjective Encounter Date: 11/23/20 Encounter Time: 08:30 Subjective: Patient seen for follow-up regarding exacerbation of congestive heart failure. Feels better today, still on supplemental oxygen. - Objective Vital Signs & Weight: Vital Signs (12 hours) Temp Pulse Resp BP Pulse Ox 11/23/20 15:33 26 H 11/23/20 15:04 97.9 F 77 30 H 128/61 96 11/23/20 11:15 98.5 F 75 28 H 143/73 H 95 11/23/20 09:20 96 11/23/20 08:58 76 11/23/20 08:56 76 11/23/20 07:25 97.7 F 90 20 166/96 H 97 Weight Weight 477 lb I&O: 11/22/20 11/23/20 11/24/20 06:59 06:59 06:59 Intake Total 220 360 660 Output Total 1621 4125 1555 [facility] -[id number] [id number] [id number] Result Diagrams: 11/23/20 04:40 11/23/20 06:19 Additional Labs: I reviewed patient's labs and MAR EKG Reviewed by me: Yes (Normal sinus rhythm on telemetry) Hospitalist ROS - Review of Systems Cardiovascular: denies: chest pain, palpitations, orthopnea, edema, light headedness Gastrointestinal: denies: nausea, vomiting, abdominal pain, diarrhea, constipation, melena, hematochezia - Medication Medications: Active Medications Generic Name Dose Route Start Last Admin Trade Name Freq PRN Reason Stop Dose Admin Acetaminophen 650 mg 11/17/20 16:29 11/23/20 16:25 Acetaminophen 325 Mg Tab PO 650 mg Q6H PRN Administration Headache/Fever or Pain Apixaban 5 mg 11/17/20 09:00 11/23/20 08:57 Apixaban 5 Mg Tab PO 5 mg BID IDALMIS Administration Carvedilol 3.125 mg 11/22/20 17:00 11/23/20 08:57 Carvedilol 3.125 Mg Tab PO 3.125 mg BID-WM IDALMIS Administration Diltiazem HCl 60 mg 11/18/20 12:00 11/20/20 07:18 Diltiazem Hcl 30 Mg Tablet PO 11/20/20 06:01 Not Given Q6HR IDALMIS Diltiazem HCl 300 mg 11/22/20 09:00 11/23/20 08:56 Diltiazem Hcl Cd 300 Mg Capsule PO 300 mg DAILY IDALMIS Administration Enalaprilat 2.5 mg 11/21/20 19:15 11/22/20 11:32 Enalaprilat Dihydrate 1.25 Mg/Ml Vial SLOW IVP 2.5 mg Q6H PRN Administration SBP Greater Than 180 Flecainide Acetate 100 mg 11/18/20 21:00 11/23/20 08:57 Flecainide 50 Mg Tab PO 100 mg Q12HR IDALMIS Administration Furosemide 60 mg 11/22/20 14:00 11/23/20 14:54 Furosemide 40 Mg/4 Ml Vial SLOW IVP 60 mg 0600,1400 IDALMIS Administration Hydralazine HCl 10 mg 11/20/20 17:22 11/23/20 04:50 Hydralazine 20 Mg/Ml Vial SLOW IVP 10 mg Q6H PRN Administration SBP Greater Than 170 Lisinopril 5 mg 11/22/20 21:00 11/23/20 08:58 Lisinopril 5 Mg Tab PO 5 mg BID IDALMIS Administration Promethazine HCl 25 mg 11/18/20 19:02 11/18/20 23:51 Promethazine Hcl 25 Mg/Ml Vial IM/IV 25 mg Q6H PRN Administration Nausea/Vomiting Sodium Chloride 10 ml 11/18/20 21:00 11/23/20 08:56 Flush - Normal Saline 10 Ml Syringe IVF 10 ml Q12HR IDALMIS Administration Hospitalist Exam Vitals: Vital Signs (12 hours) Temp Pulse Resp BP Pulse Ox 11/23/20 15:33 26 H 11/23/20 15:04 97.9 F 77 30 H 128/61 96 11/23/20 11:15 98.5 F 75 28 H 143/73 H 95 11/23/20 09:20 96 11/23/20 08:58 76 11/23/20 08:56 76 11/23/20 07:25 97.7 F 90 20 166/96 H 97 Weight Weight 477 lb ENT: normocephalic atraumatic Heart: RRR Respiratory - other findings: Bilateral crackles Extremities: no clubbing, 2+ LE edema Skin: no rashes Psychiatric: normal affect, normal behavior Hosp A/P - Plan -Assessment/plan 1. Acute on chronic diastolic congestive heart failure NYHA class III -Continue IV Lasix -Clinically improving 2. Atrial fibrillation in RVR/A.flutter -Status post cardioversion -Continue apixaban 3. Hyperkalemia -Resolved 4. Acute metabolic encephalopathy -Resolved 5. Morbid obesity 6. Thigh numbness -Continue apixaban -Patient will not fit in our CT scanner
--- NOTE | 2020-11-23 22:27 | EKG ---
Test Reason : Blood Pressure : / mmHG Vent. Rate : 144 BPM Atrial Rate : 082 BPM P-R Int : 000 ms QRS Dur : 114 ms QT Int : 342 ms P-R-T Axes : 000 -25 171 degrees QTc Int : 529 ms Sinus tachycardia Abnormal ECG Confirmed by JOSE ANGEL MARINELLI DO ([id number]), deputy editor in chief CHICHI GONG ([id number]) on 11/23/2020 10:27:05 PM Referred By: Confirmed By:JOSE ANGEL MARINELLI DO
--- NOTE | 2020-11-23 22:28 | EKG ---
Test Reason : Blood Pressure : / mmHG Vent. Rate : 147 BPM Atrial Rate : 294 BPM P-R Int : 000 ms QRS Dur : 094 ms QT Int : 196 ms P-R-T Axes : 080 -17 093 degrees QTc Int : 306 ms Atrial flutter with 2:1 A-V conduction Nonspecific ST and T wave abnormality Abnormal ECG Confirmed by JOSE ANGEL MARINELLI DO ([id number]), editorial clerk CHICHI GONG ([id number]) on 11/23/2020 10:27:36 PM Referred By: Confirmed By:JOSE ANGEL MARINELLI DO
[2020-11-24] MEDS: Furosemide 40 MG/4 ML VIAL SLOW IVP SCH ×2 (06:28→15:41)
[2020-11-24] MEDS: Carvedilol 3.125 MG TAB PO SCH (08:20)
[2020-11-24] MEDS: Apixaban 5 MG TAB PO SCH (08:20)
[2020-11-24] MEDS: Flecainide 50 MG TAB PO SCH (08:20)
[2020-11-24] MEDS: Lisinopril 5 MG TAB PO SCH (08:20)
[2020-11-24] MEDS: Diltiazem HCl CD 300 mg Capsule PO SCH (09:39)
[2020-11-24] MEDS ORDERED: diphenhydrAMINE 50 MG/ML VIAL IVP SCH (11:30)
[2020-11-24] MEDS ORDERED: Carvedilol 3.125 MG TAB PO SCH (13:15)
[2020-11-24] MEDS ORDERED: Lisinopril 5 MG TAB PO SCH (13:30)
[2020-11-24 15:37] VITALS: BP 127/63
[2020-11-24 15:41] VITALS: TEMP 98.4
[2020-11-24] MEDS ORDERED: Carvedilol 6.25 MG TAB PO SCH (17:00)
--- NOTE | 2020-11-24 17:27 | PDOC.DS.DS ---
Provider Date of Admission: 11/16/20 12:31 Date of Discharge: 11/24/20 Admitting Provider: Gladys Tatum MD Consultations: Cardiology (Dr. Rush), Electrophysiology (Dr. Barrera) Primary Care Physician: AMARI Cardozo Course Hospital Course: Discharge diagnosis: 1. Atrial flutter with rapid ventricular response 2. Acute on chronic diastolic congestive heart failure NYHA class III 3. Physical deconditioning 4. Hyperkalemia 5. COVID-19 test negative 6. Hyponatremia 7. Metabolic alkalosis 8. Hypertensive urgency Hospital course: Patient is a pleasant 45-year-old lady who was admitted to the hospital on November 16, 2020 for atrial flutter with rapid ventricular response. She was also found to be in congestive heart failure exacerbation. She was seen by ca rdiology service. 2D echocardiogram was technically difficult study, left ventricular ejection fraction appeared to be 60 to 65%. Diastolic function was indeterminate due to atrial flutter. She was treated with intravenous diuretics. She was also seen by electrophysiology service. She was started on anticoagulation and flecainide. On November 21 she underwent electrical cardioversion successfully. She continued to be treated with diuretics and improved clinically. She was physically deconditioned. She was seen by therapy services and was recommended inpatient rehab. She is being discharged to inpatient rehab. Many thanks for allowing me to participate in your patient's care. Please feel free to contact me with any questions or concerns. Discharge destination: Inpatient rehab Total amount of time spent coordinating this discharge: 32 minutes Lab Results: 11/23/20 04:40 11/23/20 06:19 Abnormal Lab Results - Last 48 hrs 11/23/20 04:40: MCHC 30.7 L, RDW 18.5 H, Neutrophils % 76.4 H, Lymphocytes % 14.9 L, Neutrophils # 8.2 H, Monocytes # 0.8 H 11/23/20 04:40: B-Natriuretic Peptide 197.9 H 11/23/20 06:19: Chloride 91 L, Carbon Dioxide 34 H Vitals: Vital Signs (12 hours) Temp Pulse Resp BP BP BP BP 11/24/20 15:37 98.4 F 81 20 127/63 11/24/20 13:13 136/68 147/88 H 11/24/20 12:08 98.1 F 81 20 186/86 H 11/24/20 09:39 81 140/76 11/24/20 07:46 98.5 F 85 32 H 193/89 H Pulse Ox 11/24/20 15:37 96 11/24/20 13:13 11/24/20 12:08 100 11/24/20 09:39 11/24/20 07:46 100 Weight Weight 483 lb 14.4 oz Physical Exam: The patient was seen and examined on the day of discharge. Patient denies chest pain or shortness of breath. Vital signs are stable. S1 and S2 are heard. Lungs are clear to auscultation bilaterally. Plan Home Medications: Medication Instructions Recorded Confirmed Type Apixaban [Eliquis] 5 mg PO BID tab 11/24/20 Rx Carvedilol [Coreg] 6.25 mg PO BID-WM tab 11/24/20 Rx Diltiazem HCl [Cardizem CD] 300 mg PO DAILY cap 11/24/20 Rx Flecainide [Tambocor] 100 mg PO Q12HR tab 11/24/20 Rx Furosemide [Lasix] 40 mg PO 0900,1400 tab 11/24/20 Rx Lisinopril [Zestril] 10 mg PO BID tab 11/24/20 Rx Potassium Chloride [Klor-Con 10] 10 meq PO QAM-WM tab 11/24/20 Rx Allergies: No Known Allergies Allergy (Verified 11/16/20 16:04) Activity:: Activity as Tolerated [facility] Jules Rush MD [Active] - 2-3 Weeks Kell Camacho PA-C [Primary Care Provider] - 3 Days Chay Barrera MD [Wire Stockkeeper] - 2-3 Weeks Disposition: HOME Quality CORE MEASURES:: HF Did you prescribe antithrombotic therapy?: No Specify reason for no DC antithrombotic therapy: Treatment not indicated Did you prescribe anticoagulant for A Fib/Flutter?: Yes Did you prescribe a statin medication?: No Specify reason for no DC statin medication: Treatment not indicated
[2020-11-24] MEDS: Acetaminophen 325 MG TAB PO PRN (19:27)
[2020-11-24] MEDS ORDERED: Lisinopril 10 MG TAB PO SCH (21:00)
[2020-11-25] MEDS ORDERED: Potassium Chloride 10 MEQ TAB PO SCH (08:00)
[2020-11-25] MEDS ORDERED: Furosemide 40 MG TAB PO SCH (09:00)
== END 2020-11-24 19:55 | DRG 291 ==
LOC: ERS 06:31 → 2SE 12:31
PROVIDERS: ADMIT Internal Medicine; ATTEND Internal Medicine
PROC: B24BZZ4 Ultrasonography of Heart with Aorta, Transesophageal (ICD-10-PCS; principal; 2020-11-19)
PROC: 5A2204Z Restoration of Cardiac Rhythm, Single (ICD-10-PCS; 2020-11-19)
DX: I11.0 Hypertensive heart disease with heart failure (principal); G93.41 Metabolic encephalopathy; I48.3 Typical atrial flutter; Z68.45 Body mass index [BMI] 70 or greater, adult; E87.1 Hypo-osmolality and hyponatremia; E87.3 Alkalosis; I50.33 Acute on chronic diastolic (congestive) heart failure; I48.91 Unspecified atrial fibrillation; G47.33 Obstructive sleep apnea (adult) (pediatric); M19.90 Unspecified osteoarthritis, unspecified site; I16.0 Hypertensive urgency; T78.40XA Allergy, unspecified, initial encounter; Z20.822 Contact with and (suspected) exposure to COVID-19; E66.01 Morbid (severe) obesity due to excess calories; I44.30 Unspecified atrioventricular block; R53.81 Other malaise; D64.9 Anemia, unspecified; E87.5 Hyperkalemia; R20.0 Anesthesia of skin
CPT/HCPCS: 36415; 71045; 80048; 80053; 82728; 83036; 83540; 83550; 83605; 83690; 83735; 83880; 84132; 84443; 85025; 85027; 85379; 92960; 93005; 93010; 93306; 93312; 93970; 94640; 94660; 96365; 96366; 96368; 96376; 97139; J0360; J1200; J1815; J1940; J2550; J2704; J3475; J3490; J7611; U0002

== ENCOUNTER 2020-12-24 03:37 | Emergency (ER) | payer MEDICARE ==
[2020-12-24] MEDS ORDERED: HYDROcodone/Acetaminophen 10/325 mg Tablet ONE (04:19)
[2020-12-24 06:33] LABS: #Eosinphils 0.1 thou/uL (0.0-0.7); #Lymphocytes 1.9 thou/uL (1.20-3.40); #Monocytes 0.3 thou/uL (0.11-0.59); %Basophils 0.2 % (0.0-1.0); %Eosinophils 0.8 % (0.0-10.0); %Lymphocytes 17.2 % (21.0-51.0); %Monocytes 2.4 % (0.0-10.0); %Neutrophils 79.4 % (42.0-75.0); Hemoglobin 10.2 g/dL (12.0-16.0); Mean Corpuscular HGB CONC 28.9 g/dL (32.0-36.0); Mean Corpuscular Hemoglobin 27.4 pg (27.0-31.0); Mean Corpuscular Volume 95.1 fL (78.0-98.0); Mean Platelet Volume 6.9 fL (7.4-10.4); Platelet Count 328 thou/uL (130-400); RBC Distribution Width 20.2 % (11.5-14.5); White Blood Cell (WBC) Count 11.3 thou/uL (4.8-10.8)
[2020-12-24 06:49] LABS: ALT (SGPT) 12 U/L (8-55); AST (SGOT) 12 U/L (5-34); Albumin 3.4 g/dL (3.5-5.0); Alkaline Phosphatase 157 U/L (40-110); Anion Gap 13 mmol/L (10-20); BUN (Urea Nitrogen) 15 mg/dL (7.0-18.7); Bilirubin, Total 0.7 mg/dL (0.2-1.2); Calc. Creatinine Clearance 0 mL/min (70-130); Calcium 9.2 mg/dL (7.8-10.44); Carbon Dioxide 35 mmol/L (22-29); Chloride 93 mmol/L (98-107); Globulin 5.2 g/dL (2.4-3.5); Glucose 114 mg/dL (70-105); Potassium 5.2 mmol/L (3.5-5.1); Protein, Total 8.6 g/dL (6.0-8.3); Sodium 136 mmol/L (136-145)
[2020-12-24] MEDS ORDERED: Ketorolac Tromethamine 30 MG/ML VIAL ONE (10:59)
== END 2020-12-24 12:21 | disposition home or self-care (01) ==
LOC: ERS 03:37
DX: M25.551 Pain in right hip (principal); M25.552 Pain in left hip; M25.561 Pain in right knee; M25.562 Pain in left knee; E66.01 Morbid (severe) obesity due to excess calories; I10 Essential (primary) hypertension; D50.9 Iron deficiency anemia, unspecified; M19.90 Unspecified osteoarthritis, unspecified site; Z79.899 Other long term (current) drug therapy; W18.11XA Fall from or off toilet without subsequent striking against object, initial encounter
CPT/HCPCS: 36415; 71045; 80053; 83880; 84484; 85025; 93005; 96372; J1885

== ENCOUNTER 2021-01-03 23:57 | Inpatient (IN) | payer MEDICARE ==
[2021-01-04 00:40] LABS: #Basophils 0.1 thou/uL (0.0-0.2); #Eosinphils 0.1 thou/uL (0.0-0.7); #Lymphocytes 1.9 thou/uL (1.20-3.40); #Monocytes 0.6 thou/uL (0.11-0.59); %Basophils 0.6 % (0.0-1.0); %Eosinophils 0.7 % (0.0-10.0); %Lymphocytes 17.5 % (21.0-51.0); %Monocytes 5.7 % (0.0-10.0); %Neutrophils 75.5 % (42.0-75.0); Hemoglobin 10.6 g/dL (12.0-16.0); Mean Corpuscular HGB CONC 28.5 g/dL (32.0-36.0); Mean Corpuscular Hemoglobin 28.6 pg (27.0-31.0); Mean Platelet Volume 7.4 fL (7.4-10.4); Platelet Count 273 thou/uL (130-400); RBC Distribution Width 21.1 % (11.5-14.5); Red Blood Cell (RBC) Count 3.71 mill/uL (4.20-5.40); White Blood Cell (WBC) Count 10.6 thou/uL (4.8-10.8)
[2021-01-04 01:03] LABS: Anion Gap 15 mmol/L (10-20); Chloride 88 mmol/L (98-107); Potassium 5.5 mmol/L (3.5-5.1); Sodium 143 mmol/L (136-145)
[2021-01-04 01:09] LABS: ALT (SGPT) 7 U/L (8-55); AST (SGOT) 15 U/L (5-34); Albumin 3.8 g/dL (3.5-5.0); Alkaline Phosphatase 123 U/L (40-110); BUN (Urea Nitrogen) 15 mg/dL (7.0-18.7); Bilirubin, Total 0.8 mg/dL (0.2-1.2); Calc. Creatinine Clearance 0 mL/min (70-130); Calcium 9.4 mg/dL (7.8-10.44); Carbon Dioxide 46 mmol/L (22-29); Globulin 5.5 g/dL (2.4-3.5); Glucose 108 mg/dL (70-105); Protein, Total 9.3 g/dL (6.0-8.3)
[2021-01-04 01:11] LABS: Actual Bicarbonate (HCO3a) 50.3 mEq/L (22-28); Analyzer IN Cardio ER; Base Excess (BEa) 15.1 mEq/L (-2.0 to +3.0); Calcium, Ionized (arterial) 1.19 mmol/L (1.12-1.30); Carboxyhemoglobin (COHb) 2.3 gm% (0.0-3.0); Hemoglobin (Hb) 11.5 g/dL (12.0-16.0); Potassium - ABG Lab 4.77 mmol/L (3.70-5.30)
[2021-01-04 01:16] LABS: CO2 Tension 169.2 mmHg (35.0-45.0); Puncture Site LRA; pH, Arterial 7.09 (7.35-7.45)
[2021-01-04 03:00] LABS: SARS-CoV-2 NAA Rapid Test Not Detected (NotDetected)
[2021-01-04] MEDS ORDERED: Ondansetron PF 4 MG/2 ML Vial IVP PRN (03:35)
[2021-01-04 04:16] LABS: Troponin I Less than 0.010 ng/mL (< 0.028)
[2021-01-04 05:13] LABS: Actual Bicarbonate (HCO3a) 48.9 mEq/L (22-28); Analyzer IN Cardio ER; Base Excess (BEa) 17.1 mEq/L (-2.0 to +3.0); Calcium, Ionized (arterial) 1.18 mmol/L (1.12-1.30); Carboxyhemoglobin (COHb) 1.9 gm% (0.0-3.0); Hemoglobin (Hb) 11.1 g/dL (12.0-16.0); Potassium - ABG Lab 4.64 mmol/L (3.70-5.30)
[2021-01-04 05:15] LABS: CO2 Tension 117.7 mmHg (35.0-45.0); O2 Tension (PaO2), arterial 58.5 mmHg (80.0-100.0); pH, Arterial 7.24 (7.35-7.45)
[2021-01-04 05:16] LABS: Puncture Site LRA
[2021-01-04 05:17] LABS: ALV-art Gradient 79.575 mmHg (0-20)
[2021-01-04] MEDS ORDERED: Azithromycin 500 MG in Sodium Chloride 0.9% 250 ML 250 ML IVPB SCH (06:00)
[2021-01-04] MEDS ORDERED: Furosemide 20 MG/2 ML VIAL SLOW IVP SCH (06:00)
[2021-01-04 07:13] LABS: Troponin I Less than 0.010 ng/mL (< 0.028)
[2021-01-04 07:14] LABS: BUN (Urea Nitrogen) 14 mg/dL (7.0-18.7); Calc. Creatinine Clearance 0 mL/min (70-130); Calcium 9.6 mg/dL (7.8-10.44); Glucose 81 mg/dL (70-105)
[2021-01-04 07:23] LABS: Anion Gap 19 mmol/L (10-20); Carbon Dioxide 40 mmol/L (22-29); Chloride 88 mmol/L (98-107); Potassium 4.9 mmol/L (3.5-5.1); Sodium 142 mmol/L (136-145)
[2021-01-04] MEDS ORDERED: Furosemide 20 MG/2 ML VIAL ONE (08:03)
[2021-01-04] MEDS ORDERED: Ketorolac Tromethamine 30 MG/ML VIAL ONE (08:03)
[2021-01-04] MEDS ORDERED: Sodium Chloride 0.9% (PF) 10 ML VIAL FS PRN (08:30)
[2021-01-04] MEDS ORDERED: Enoxaparin Sodium 40 MG/0.4 ML SYRINGE SC SCH (09:00)
[2021-01-04] MEDS ORDERED: Doxycycline 100 MG CAP PO SCH (09:00)
[2021-01-04] MEDS: Pantoprazole 40 MG VIAL IVP SCH ×2 (09:24→20:09)
[2021-01-04] MEDS: methylPREDNISolone Sod Succ 40 MG VIAL IVP SCH (09:24)
[2021-01-04] MEDS: Apixaban 5 MG TAB PO SCH ×2 (09:24→21:25)
[2021-01-04] MEDS: Diltiazem HCl CD 300 mg Capsule PO SCH (09:25)
[2021-01-04] MEDS: Flecainide 50 MG TAB PO SCH ×2 (09:25→21:25)
[2021-01-04] MEDS: Folic Acid 1 MG TAB PO SCH (09:25)
[2021-01-04] MEDS ORDERED: FLU VACC QS2020-21(6MOS UP)/PF 60 MCG/0.5 ML SYRINGE IM ONE (11:30)
[2021-01-04] MEDS ORDERED: Metoprolol Tartrate 5 MG/5 ML VIAL IVP SCH (16:30)
[2021-01-04] MEDS: cefTRIAXone\\ROCEPHIN 1 GM in Sodium Chloride 0.9% 100 ML IVPB SCH (16:40)
[2021-01-04] MEDS: Carvedilol 6.25 MG TAB PO SCH (16:41)
[2021-01-04 17:45] LABS: Actual Bicarbonate (HCO3a) 51.9 mEq/L (22-28); Base Excess (BEa) 24.6 mEq/L (-2.0 to +3.0); Calcium, Ionized (arterial) 1.14 mmol/L (1.12-1.30); Carboxyhemoglobin (COHb) 1.9 gm% (0.0-3.0); Hemoglobin (Hb) 10.9 g/dL (12.0-16.0); Potassium - ABG Lab 4.61 mmol/L (3.70-5.30); pH, Arterial 7.48 (7.35-7.45)
[2021-01-04 17:49] LABS: CO2 Tension 70.8 mmHg (35.0-45.0); O2 Tension (PaO2), arterial 46.9 mmHg (80.0-100.0); Puncture Site LRA
[2021-01-04] MEDS: Ketorolac Tromethamine 30 MG/ML VIAL IVP PRN (20:02)
[2021-01-04] MEDS: acetaZOLAMIDE Sodium 500 mg Vial IVP SCH (20:10)
[2021-01-04] MEDS ORDERED: Acetaminophen 650 MG Suppository PR PRN (23:30)
[2021-01-05] MEDS: Acetaminophen 325 MG TAB PO PRN (00:14)
[2021-01-05] MEDS: Metoprolol Tartrate 5 MG/5 ML VIAL IVP PRN ×2 (00:15→06:07)
[2021-01-05 03:35] LABS: Hemoglobin 9.5 g/dL (12.0-16.0)
[2021-01-05 03:37] LABS: #Basophils 0.1 thou/uL (0.0-0.2); #Monocytes 0.7 thou/uL (0.11-0.59); #Neutrophils 7.5 thou/uL (1.40-6.50); %Basophils 1.1 % (0.0-1.0); %Eosinophils 0.1 % (0.0-10.0); %Lymphocytes 19.3 % (21.0-51.0); %Monocytes 6.8 % (0.0-10.0); %Neutrophils 72.7 % (42.0-75.0); Hemoglobin 9.5 g/dL (12.0-16.0); Mean Corpuscular HGB CONC 30.1 g/dL (32.0-36.0); Mean Corpuscular Hemoglobin 28.2 pg (27.0-31.0); Mean Corpuscular Volume 93.5 fL (78.0-98.0); Mean Platelet Volume 7.9 fL (7.4-10.4); Platelet Count 267 thou/uL (130-400); RBC Distribution Width 21.2 % (11.5-14.5); Red Blood Cell (RBC) Count 3.38 mill/uL (4.20-5.40); White Blood Cell (WBC) Count 10.3 thou/uL (4.8-10.8)
[2021-01-05 03:55] LABS: BUN (Urea Nitrogen) 16 mg/dL (7.0-18.7); Calc. Creatinine Clearance 364 mL/min (70-130); Calcium 9.1 mg/dL (7.8-10.44); Glucose 91 mg/dL (70-105)
[2021-01-05 04:04] LABS: Anion Gap 21 mmol/L (10-20); Carbon Dioxide 35 mmol/L (22-29); Chloride 87 mmol/L (98-107); Potassium 4.3 mmol/L (3.5-5.1); Sodium 139 mmol/L (136-145)
[2021-01-05] MEDS: Ketorolac Tromethamine 30 MG/ML VIAL IVP PRN ×2 (04:36→20:53)
[2021-01-05] MEDS: acetaZOLAMIDE Sodium 500 mg Vial IVP SCH ×2 (09:51→20:59)
[2021-01-05] MEDS: Flecainide 50 MG TAB PO SCH ×2 (09:51→20:59)
[2021-01-05] MEDS: Folic Acid 1 MG TAB PO SCH (09:51)
[2021-01-05] MEDS: Diltiazem HCl CD 300 mg Capsule PO SCH (09:51)
[2021-01-05] MEDS: Carvedilol 6.25 MG TAB PO SCH ×2 (09:51→18:26)
[2021-01-05] MEDS: Apixaban 5 MG TAB PO SCH ×2 (09:51→20:59)
[2021-01-05] MEDS: Furosemide 20 MG/2 ML VIAL SLOW IVP SCH (09:52)
[2021-01-05] MEDS: methylPREDNISolone Sod Succ 40 MG VIAL IVP SCH (09:52)
[2021-01-05] MEDS: Pantoprazole 40 MG VIAL IVP SCH ×2 (09:52→20:59)
[2021-01-05] MEDS: cefTRIAXone\\ROCEPHIN 1 GM in Sodium Chloride 0.9% 100 ML IVPB SCH (18:26)
[2021-01-05] MEDS ORDERED: Sterile Water 10 ML ONE (20:51)
[2021-01-06] MEDS: Carvedilol 6.25 MG TAB PO SCH ×2 (09:13→17:41)
[2021-01-06] MEDS: Folic Acid 1 MG TAB PO SCH (09:14)
[2021-01-06] MEDS: Diltiazem HCl CD 300 mg Capsule PO SCH (09:14)
[2021-01-06] MEDS: Flecainide 50 MG TAB PO SCH ×2 (09:14→20:23)
[2021-01-06] MEDS: Apixaban 5 MG TAB PO SCH ×2 (09:14→20:23)
[2021-01-06] MEDS: methylPREDNISolone Sod Succ 40 MG VIAL IVP SCH (09:14)
[2021-01-06] MEDS: Furosemide 20 MG/2 ML VIAL SLOW IVP SCH (09:14)
[2021-01-06] MEDS: acetaZOLAMIDE Sodium 500 mg Vial IVP SCH ×2 (09:14→20:24)
[2021-01-06] MEDS: Pantoprazole 40 MG VIAL IVP SCH ×2 (09:15→20:24)
[2021-01-06] MEDS: cefTRIAXone\\ROCEPHIN 1 GM in Sodium Chloride 0.9% 100 ML IVPB SCH (17:41)
[2021-01-06] MEDS: Acetaminophen 325 MG TAB PO PRN (17:41)
[2021-01-06] MEDS: Ketorolac Tromethamine 30 MG/ML VIAL IVP PRN (20:22)
[2021-01-07 04:11] LABS: BUN (Urea Nitrogen) 25 mg/dL (7.0-18.7); Calc. Creatinine Clearance 329 mL/min (70-130); Calcium 8.7 mg/dL (7.8-10.44); Glucose 122 mg/dL (70-105)
[2021-01-07 04:13] LABS: Hemoglobin 10.9 g/dL (12.0-16.0); Hypochromia SLIGHT = 6-15 cells (100X) (0-5/hpf); Lymphocytes 30 % (21-51); MDiff Complete? YES; Mean Corpuscular HGB CONC 29.7 g/dL (32.0-36.0); Mean Corpuscular Hemoglobin 28.9 pg (27.0-31.0); Mean Corpuscular Volume 97.4 fL (78.0-98.0); Neutrophil 70 % (42-75); Nucleated RBC 1 % (0); Platelet Count 243 thou/uL (130-400); Platelet Morphology Comment Appears Adequate; RBC Distribution Width 21.4 % (11.5-14.5); Red Blood Cell (RBC) Count 3.78 mill/uL (4.20-5.40); Target Cells SLIGHT = 2-5 cells (100X) (0-1/hpf); White Blood Cell (WBC) Count 8.4 thou/uL (4.8-10.8)
[2021-01-07 04:21] LABS: Anion Gap 20 mmol/L (10-20); Carbon Dioxide 34 mmol/L (22-29); Chloride 89 mmol/L (98-107); Potassium 5.4 mmol/L (3.5-5.1); Sodium 138 mmol/L (136-145)
[2021-01-07] MEDS: Diltiazem HCl CD 300 mg Capsule PO SCH (10:01)
[2021-01-07] MEDS: Apixaban 5 MG TAB PO SCH ×2 (10:02→20:53)
[2021-01-07] MEDS: Flecainide 50 MG TAB PO SCH ×2 (10:02→20:52)
[2021-01-07] MEDS: Carvedilol 6.25 MG TAB PO SCH ×2 (10:02→17:56)
[2021-01-07] MEDS: acetaZOLAMIDE Sodium 500 mg Vial IVP SCH ×2 (10:02→17:55)
[2021-01-07] MEDS: methylPREDNISolone Sod Succ 40 MG VIAL IVP SCH ×2 (10:03→17:55)
[2021-01-07] MEDS: Folic Acid 1 MG TAB PO SCH (10:03)
[2021-01-07] MEDS ORDERED: Sterile Water 10 ML ONE (10:12)
[2021-01-07] MEDS: Pantoprazole 40 MG VIAL IVP SCH (10:14)
[2021-01-07] MEDS: Acetaminophen 325 MG TAB PO PRN (10:18)
[2021-01-07] MEDS: cefTRIAXone\\ROCEPHIN 1 GM in Sodium Chloride 0.9% 100 ML IVPB SCH (17:54)
[2021-01-07] MEDS ORDERED: Polyethylene Glycol 3350 17 GM Packet PO PRN (20:23)
[2021-01-07] MEDS: Simethicone Chewable 80 MG TAB PO PRN (20:52)
[2021-01-07] MEDS: AcetaZOLAMIDE 250 MG TAB PO SCH (22:02)
[2021-01-08 03:41] LABS: #Eosinphils 0.1 thou/uL (0.0-0.7); #Lymphocytes 2.2 thou/uL (1.20-3.40); #Neutrophils 6.3 thou/uL (1.40-6.50); %Basophils 0.5 % (0.0-1.0); %Eosinophils 0.7 % (0.0-10.0); %Lymphocytes 22.6 % (21.0-51.0); %Monocytes 10.5 % (0.0-10.0); %Neutrophils 65.7 % (42.0-75.0); Hemoglobin 11.2 g/dL (12.0-16.0); Mean Corpuscular HGB CONC 29.1 g/dL (32.0-36.0); Mean Corpuscular Hemoglobin 28.4 pg (27.0-31.0); Mean Corpuscular Volume 97.7 fL (78.0-98.0); Mean Platelet Volume 8.2 fL (7.4-10.4); Platelet Count 194 thou/uL (130-400); RBC Distribution Width 21.7 % (11.5-14.5); Red Blood Cell (RBC) Count 3.95 mill/uL (4.20-5.40); White Blood Cell (WBC) Count 9.6 thou/uL (4.8-10.8)
[2021-01-08] MEDS: Flecainide 50 MG TAB PO SCH ×2 (09:05→20:42)
[2021-01-08] MEDS: Apixaban 5 MG TAB PO SCH ×2 (09:05→20:42)
[2021-01-08] MEDS: Diltiazem HCl CD 300 mg Capsule PO SCH (09:05)
[2021-01-08] MEDS: AcetaZOLAMIDE 250 MG TAB PO SCH ×2 (09:05→20:42)
[2021-01-08] MEDS: Carvedilol 6.25 MG TAB PO SCH ×2 (09:05→17:35)
[2021-01-08] MEDS: Folic Acid 1 MG TAB PO SCH (09:05)
[2021-01-08] MEDS: methylPREDNISolone Sod Succ 40 MG VIAL IVP SCH (09:06)
[2021-01-08] MEDS ORDERED: methylPREDNISolone Sod Succ 40 MG VIAL IVP SCH (09:24)
[2021-01-08] MEDS: cefTRIAXone\\ROCEPHIN 1 GM in Sodium Chloride 0.9% 100 ML IVPB SCH (17:35)
[2021-01-08] MEDS: Acetaminophen 325 MG TAB PO PRN (17:41)
[2021-01-09] MEDS: Acetaminophen 325 MG TAB PO PRN (04:22)
[2021-01-09 07:41] LABS: #Eosinphils 0.1 thou/uL (0.0-0.7); #Lymphocytes 2.4 thou/uL (1.20-3.40); #Monocytes 0.4 thou/uL (0.11-0.59); %Basophils 0.5 % (0.0-1.0); %Eosinophils 1.2 % (0.0-10.0); %Lymphocytes 24.2 % (21.0-51.0); %Monocytes 3.6 % (0.0-10.0); %Neutrophils 70.5 % (42.0-75.0); Hemoglobin 10.3 g/dL (12.0-16.0); Mean Corpuscular HGB CONC 28.9 g/dL (32.0-36.0); Mean Corpuscular Volume 96.9 fL (78.0-98.0); Platelet Count 229 thou/uL (130-400); RBC Distribution Width 21.6 % (11.5-14.5); Red Blood Cell (RBC) Count 3.67 mill/uL (4.20-5.40); White Blood Cell (WBC) Count 9.9 thou/uL (4.8-10.8)
[2021-01-09 08:00] LABS: BUN (Urea Nitrogen) 23 mg/dL (7.0-18.7); Calc. Creatinine Clearance 395 mL/min (70-130); Calcium 8.5 mg/dL (7.8-10.44); Glucose 109 mg/dL (70-105)
[2021-01-09 08:09] LABS: Anion Gap 13 mmol/L (10-20); Carbon Dioxide 39 mmol/L (22-29); Chloride 90 mmol/L (98-107); Potassium 4.3 mmol/L (3.5-5.1); Sodium 138 mmol/L (136-145)
[2021-01-09 08:30] LABS: Hypochromia SLIGHT = 6-15 cells (100X) (0-5/hpf); MDiff Complete? YES; Polychromasia MODERATE = 3-4 cells (100X) (0-2/hpf); Stomatocytes SLIGHT = 2-5 cells (100X) (0-1/hpf); Target Cells SLIGHT = 2-5 cells (100X) (0-1/hpf)
[2021-01-09] MEDS: Diltiazem HCl CD 300 mg Capsule PO SCH (09:34)
[2021-01-09] MEDS: Apixaban 5 MG TAB PO SCH ×2 (09:34→21:11)
[2021-01-09] MEDS: Carvedilol 6.25 MG TAB PO SCH ×2 (09:34→17:23)
[2021-01-09] MEDS: AcetaZOLAMIDE 250 MG TAB PO SCH ×2 (09:34→21:11)
[2021-01-09] MEDS: Folic Acid 1 MG TAB PO SCH (09:34)
[2021-01-09] MEDS: Flecainide 50 MG TAB PO SCH ×2 (09:34→21:11)
[2021-01-09] MEDS: cefTRIAXone\\ROCEPHIN 1 GM in Sodium Chloride 0.9% 100 ML IVPB SCH (17:27)
[2021-01-10 04:12] LABS: BUN (Urea Nitrogen) 22 mg/dL (7.0-18.7); Calc. Creatinine Clearance 395 mL/min (70-130); Calcium 8.5 mg/dL (7.8-10.44); Glucose 114 mg/dL (70-105)
[2021-01-10 04:24] LABS: Anion Gap 15 mmol/L (10-20); Carbon Dioxide 38 mmol/L (22-29); Chloride 90 mmol/L (98-107); Potassium 4.2 mmol/L (3.5-5.1); Sodium 139 mmol/L (136-145)
[2021-01-10] MEDS: Apixaban 5 MG TAB PO SCH ×2 (08:38→20:23)
[2021-01-10] MEDS: Folic Acid 1 MG TAB PO SCH (08:38)
[2021-01-10] MEDS: AcetaZOLAMIDE 250 MG TAB PO SCH ×2 (08:38→20:22)
[2021-01-10] MEDS: Flecainide 50 MG TAB PO SCH ×2 (08:38→20:23)
[2021-01-10] MEDS: Diltiazem HCl CD 300 mg Capsule PO SCH (08:38)
[2021-01-10] MEDS: Carvedilol 6.25 MG TAB PO SCH ×2 (08:38→17:15)
[2021-01-10] MEDS: cefTRIAXone\\ROCEPHIN 1 GM in Sodium Chloride 0.9% 100 ML IVPB SCH (17:14)
[2021-01-11 03:54] LABS: BUN (Urea Nitrogen) 18 mg/dL (7.0-18.7); Calc. Creatinine Clearance 395 mL/min (70-130); Calcium 8.5 mg/dL (7.8-10.44); Glucose 134 mg/dL (70-105)
[2021-01-11 04:05] LABS: Anion Gap 15 mmol/L (10-20); Carbon Dioxide 36 mmol/L (22-29); Chloride 92 mmol/L (98-107); Potassium 4.2 mmol/L (3.5-5.1); Sodium 139 mmol/L (136-145)
[2021-01-11] MEDS: Apixaban 5 MG TAB PO SCH ×2 (10:02→21:45)
[2021-01-11] MEDS: Flecainide 50 MG TAB PO SCH ×2 (10:02→21:45)
[2021-01-11] MEDS: Folic Acid 1 MG TAB PO SCH (10:03)
[2021-01-11] MEDS: Carvedilol 6.25 MG TAB PO SCH ×2 (10:03→17:59)
[2021-01-11] MEDS: Diltiazem HCl CD 300 mg Capsule PO SCH (10:03)
[2021-01-11] MEDS: AcetaZOLAMIDE 250 MG TAB PO SCH ×2 (10:03→21:44)
[2021-01-11] MEDS: cefTRIAXone\\ROCEPHIN 1 GM in Sodium Chloride 0.9% 100 ML IVPB SCH (17:45)
[2021-01-11] MEDS ORDERED: Fleet Enema 133 ML BOT PR SCH (17:45)
[2021-01-12 04:16] LABS: BUN (Urea Nitrogen) 15 mg/dL (7.0-18.7); Calc. Creatinine Clearance 426 mL/min (70-130); Calcium 8.6 mg/dL (7.8-10.44); Glucose 112 mg/dL (70-105)
[2021-01-12 04:25] LABS: Anion Gap 15 mmol/L (10-20); Carbon Dioxide 36 mmol/L (22-29); Chloride 94 mmol/L (98-107); Potassium 4.5 mmol/L (3.5-5.1); Sodium 140 mmol/L (136-145)
[2021-01-12] MEDS: Diltiazem HCl CD 300 mg Capsule PO SCH (09:07)
[2021-01-12] MEDS: AcetaZOLAMIDE 250 MG TAB PO SCH ×2 (09:08→20:38)
[2021-01-12] MEDS: Carvedilol 6.25 MG TAB PO SCH ×2 (09:08→18:22)
[2021-01-12] MEDS: Flecainide 50 MG TAB PO SCH ×2 (09:08→20:38)
[2021-01-12] MEDS: Apixaban 5 MG TAB PO SCH ×2 (09:08→20:38)
[2021-01-12] MEDS: Folic Acid 1 MG TAB PO SCH (09:08)
[2021-01-12] MEDS ORDERED: Bisacodyl 10 MG SUPP PR PRN (10:33)
[2021-01-12] MEDS: cefTRIAXone\\ROCEPHIN 1 GM in Sodium Chloride 0.9% 100 ML IVPB SCH (18:22)
[2021-01-13 03:52] LABS: BUN (Urea Nitrogen) 15 mg/dL (7.0-18.7); Calc. Creatinine Clearance 395 mL/min (70-130); Calcium 8.6 mg/dL (7.8-10.44); Glucose 113 mg/dL (70-105)
[2021-01-13 04:02] LABS: Anion Gap 15 mmol/L (10-20); Carbon Dioxide 35 mmol/L (22-29); Chloride 95 mmol/L (98-107); Potassium 4.5 mmol/L (3.5-5.1); Sodium 140 mmol/L (136-145)
[2021-01-13] MEDS: Diltiazem HCl CD 300 mg Capsule PO SCH (08:32)
[2021-01-13] MEDS: Folic Acid 1 MG TAB PO SCH (08:32)
[2021-01-13] MEDS: Apixaban 5 MG TAB PO SCH ×2 (08:32→21:14)
[2021-01-13] MEDS: Flecainide 50 MG TAB PO SCH ×2 (08:32→21:14)
[2021-01-13] MEDS: Carvedilol 6.25 MG TAB PO SCH ×2 (08:32→17:53)
[2021-01-13] MEDS: AcetaZOLAMIDE 250 MG TAB PO SCH ×2 (08:32→21:14)
[2021-01-13] MEDS: cefTRIAXone\\ROCEPHIN 1 GM in Sodium Chloride 0.9% 100 ML IVPB SCH (17:56)
[2021-01-14] MEDS: AcetaZOLAMIDE 250 MG TAB PO SCH ×2 (08:28→21:03)
[2021-01-14] MEDS: Apixaban 5 MG TAB PO SCH ×2 (08:30→21:02)
[2021-01-14] MEDS: Folic Acid 1 MG TAB PO SCH (08:30)
[2021-01-14] MEDS: Carvedilol 6.25 MG TAB PO SCH ×2 (08:30→18:17)
[2021-01-14] MEDS: Diltiazem HCl CD 300 mg Capsule PO SCH (08:30)
[2021-01-14] MEDS: Flecainide 50 MG TAB PO SCH ×2 (08:30→21:03)
[2021-01-14] MEDS ORDERED: Sodium Chloride 0.65% Nasal 44 ML BOT EA NARE PRN (09:02)
[2021-01-15] MEDS: Acetaminophen 325 MG TAB PO PRN (02:18)
[2021-01-15] MEDS: Folic Acid 1 MG TAB PO SCH (08:44)
[2021-01-15] MEDS: Carvedilol 6.25 MG TAB PO SCH ×2 (08:44→17:38)
[2021-01-15] MEDS: Apixaban 5 MG TAB PO SCH ×2 (08:45→20:54)
[2021-01-15] MEDS: Flecainide 50 MG TAB PO SCH ×2 (08:45→20:54)
[2021-01-15] MEDS: AcetaZOLAMIDE 250 MG TAB PO SCH ×2 (08:46→20:54)
[2021-01-15] MEDS: Diltiazem HCl CD 300 mg Capsule PO SCH (08:46)
[2021-01-16] MEDS: Acetaminophen 325 MG TAB PO PRN (01:18)
[2021-01-16] MEDS: Diltiazem HCl CD 300 mg Capsule PO SCH (08:39)
[2021-01-16] MEDS: Apixaban 5 MG TAB PO SCH ×2 (08:41→20:47)
[2021-01-16] MEDS: Folic Acid 1 MG TAB PO SCH (08:41)
[2021-01-16] MEDS: AcetaZOLAMIDE 250 MG TAB PO SCH ×2 (08:41→20:47)
[2021-01-16] MEDS: Carvedilol 6.25 MG TAB PO SCH ×2 (08:42→17:26)
[2021-01-16] MEDS: Flecainide 50 MG TAB PO SCH ×2 (08:42→20:47)
[2021-01-16 08:53] LABS: Anion Gap 14 mmol/L (10-20); BUN (Urea Nitrogen) 13 mg/dL (7.0-18.7); Calc. Creatinine Clearance 390 mL/min (70-130); Calcium 8.8 mg/dL (7.8-10.44); Carbon Dioxide 34 mmol/L (22-29); Chloride 97 mmol/L (98-107); Glucose 106 mg/dL (70-105); Potassium 4.7 mmol/L (3.5-5.1); Sodium 140 mmol/L (136-145)
[2021-01-16 09:45] LABS: #Eosinphils 0.1 thou/uL (0.0-0.7); #Lymphocytes 2.5 thou/uL (1.20-3.40); #Monocytes 0.8 thou/uL (0.11-0.59); #Neutrophils 7.7 thou/uL (1.40-6.50); %Basophils 0.1 % (0.0-1.0); %Eosinophils 1.1 % (0.0-10.0); %Lymphocytes 22.3 % (21.0-51.0); %Monocytes 7.2 % (0.0-10.0); %Neutrophils 69.2 % (42.0-75.0); Anisocytosis MODERATE=16-30 cells (100X) (0-5/hpf); Hemoglobin 9.4 g/dL (12.0-16.0); MDiff Complete? YES; Mean Corpuscular HGB CONC 29.2 g/dL (32.0-36.0); Mean Corpuscular Hemoglobin 28.6 pg (27.0-31.0); Mean Corpuscular Volume 97.7 fL (78.0-98.0); Mean Platelet Volume 7.7 fL (7.4-10.4); Platelet Count 280 thou/uL (130-400); Platelet Morphology Comment Appears Adequate; Polychromasia SLIGHT = 2-3 cells (100X) (0-2/hpf); RBC Distribution Width 22.2 % (11.5-14.5); Red Blood Cell (RBC) Count 3.28 mill/uL (4.20-5.40); White Blood Cell (WBC) Count 11.2 thou/uL (4.8-10.8)
[2021-01-17] MEDS: Apixaban 5 MG TAB PO SCH ×2 (09:57→20:22)
[2021-01-17] MEDS: Carvedilol 6.25 MG TAB PO SCH ×2 (09:57→17:46)
[2021-01-17] MEDS: Folic Acid 1 MG TAB PO SCH (09:57)
[2021-01-17] MEDS: Flecainide 50 MG TAB PO SCH ×2 (09:58→20:22)
[2021-01-17] MEDS: AcetaZOLAMIDE 250 MG TAB PO SCH ×2 (09:59→20:22)
[2021-01-17] MEDS: Diltiazem HCl CD 300 mg Capsule PO SCH (09:59)
[2021-01-17] MEDS ORDERED: Furosemide 40 MG/4 ML VIAL SLOW IVP SCH (12:30)
[2021-01-17] MEDS ORDERED: Furosemide 40 MG TAB PO SCH (13:45)
[2021-01-17] MEDS: Acetaminophen 325 MG TAB PO PRN (20:25)
[2021-01-18] MEDS: Ondansetron ODT 4 MG TAB PO PRN (03:08)
[2021-01-18] MEDS: Simethicone Chewable 80 MG TAB PO PRN (03:12)
[2021-01-18 06:00] LABS: Anion Gap 11 mmol/L (10-20); BUN (Urea Nitrogen) 12 mg/dL (7.0-18.7); Calc. Creatinine Clearance 380 mL/min (70-130); Calcium 8.6 mg/dL (7.8-10.44); Carbon Dioxide 33 mmol/L (22-29); Chloride 95 mmol/L (98-107); Glucose 108 mg/dL (70-105); Sodium 135 mmol/L (136-145)
[2021-01-18] MEDS: Carvedilol 6.25 MG TAB PO SCH ×2 (08:26→17:07)
[2021-01-18] MEDS: Folic Acid 1 MG TAB PO SCH (08:27)
[2021-01-18] MEDS: Apixaban 5 MG TAB PO SCH ×2 (08:27→21:11)
[2021-01-18] MEDS: Flecainide 50 MG TAB PO SCH ×2 (08:27→21:11)
[2021-01-18] MEDS: Diltiazem HCl CD 300 mg Capsule PO SCH (08:27)
[2021-01-18] MEDS: AcetaZOLAMIDE 250 MG TAB PO SCH ×2 (08:28→21:11)
[2021-01-18] MEDS: Acetaminophen 325 MG TAB PO PRN (08:31)
[2021-01-19] MEDS: Flecainide 50 MG TAB PO SCH ×2 (08:32→20:03)
[2021-01-19] MEDS: Apixaban 5 MG TAB PO SCH ×2 (08:33→20:03)
[2021-01-19] MEDS: Diltiazem HCl CD 300 mg Capsule PO SCH (08:34)
[2021-01-19] MEDS: Carvedilol 6.25 MG TAB PO SCH ×2 (08:34→17:35)
[2021-01-19] MEDS: Folic Acid 1 MG TAB PO SCH (08:34)
[2021-01-19] MEDS: AcetaZOLAMIDE 250 MG TAB PO SCH ×2 (08:35→20:03)
[2021-01-19] MEDS: Acetaminophen 325 MG TAB PO PRN (08:38)
[2021-01-20] MEDS: Acetaminophen 325 MG TAB PO PRN ×2 (03:57→10:58)
[2021-01-20] MEDS: Apixaban 5 MG TAB PO SCH ×2 (08:03→21:36)
[2021-01-20] MEDS: AcetaZOLAMIDE 250 MG TAB PO SCH ×2 (08:03→21:36)
[2021-01-20] MEDS: Carvedilol 6.25 MG TAB PO SCH ×2 (08:03→17:46)
[2021-01-20] MEDS: Diltiazem HCl CD 300 mg Capsule PO SCH (08:04)
[2021-01-20] MEDS: Folic Acid 1 MG TAB PO SCH (08:04)
[2021-01-20] MEDS: Flecainide 50 MG TAB PO SCH ×2 (08:04→21:37)
[2021-01-20 11:38] VITALS: BMI 85.4
[2021-01-20] MEDS: Simethicone Chewable 80 MG TAB PO PRN (21:37)
[2021-01-20] MEDS: Ondansetron ODT 4 MG TAB PO PRN (21:37)
[2021-01-21] MEDS: Diltiazem HCl CD 300 mg Capsule PO SCH (08:41)
[2021-01-21] MEDS: Carvedilol 6.25 MG TAB PO SCH ×2 (08:41→17:09)
[2021-01-21] MEDS: Flecainide 50 MG TAB PO SCH ×2 (08:41→20:45)
[2021-01-21] MEDS: Apixaban 5 MG TAB PO SCH ×2 (08:41→20:45)
[2021-01-21] MEDS: Folic Acid 1 MG TAB PO SCH (08:41)
[2021-01-21] MEDS: AcetaZOLAMIDE 250 MG TAB PO SCH ×2 (08:41→20:45)
[2021-01-21] MEDS: Ondansetron ODT 4 MG TAB PO PRN (10:56)
[2021-01-22] MEDS: Simethicone Chewable 80 MG TAB PO PRN ×2 (02:30→20:26)
[2021-01-22] MEDS: Ondansetron ODT 4 MG TAB PO PRN ×2 (02:30→20:26)
[2021-01-22] MEDS: Carvedilol 6.25 MG TAB PO SCH ×2 (08:34→16:20)
[2021-01-22] MEDS: Diltiazem HCl CD 300 mg Capsule PO SCH (08:35)
[2021-01-22] MEDS: Flecainide 50 MG TAB PO SCH ×2 (08:35→20:27)
[2021-01-22] MEDS: Folic Acid 1 MG TAB PO SCH (08:35)
[2021-01-22] MEDS: Apixaban 5 MG TAB PO SCH ×2 (08:35→20:26)
[2021-01-22] MEDS: AcetaZOLAMIDE 250 MG TAB PO SCH ×2 (08:35→20:26)
[2021-01-23] MEDS: Acetaminophen 325 MG TAB PO PRN (08:31)
[2021-01-23] MEDS: Carvedilol 6.25 MG TAB PO SCH ×2 (08:31→16:50)
[2021-01-23] MEDS: Diltiazem HCl CD 300 mg Capsule PO SCH (08:31)
[2021-01-23] MEDS: Flecainide 50 MG TAB PO SCH ×2 (08:32→20:28)
[2021-01-23] MEDS: Apixaban 5 MG TAB PO SCH ×2 (08:32→20:28)
[2021-01-23] MEDS: AcetaZOLAMIDE 250 MG TAB PO SCH ×2 (08:32→20:28)
[2021-01-23] MEDS: Folic Acid 1 MG TAB PO SCH (08:32)
[2021-01-23] MEDS: Simethicone Chewable 80 MG TAB PO PRN (20:27)
[2021-01-24] MEDS: Carvedilol 6.25 MG TAB PO SCH ×2 (08:42→17:30)
[2021-01-24] MEDS: Flecainide 50 MG TAB PO SCH ×2 (08:42→20:50)
[2021-01-24] MEDS: Apixaban 5 MG TAB PO SCH ×2 (08:42→20:50)
[2021-01-24] MEDS: Folic Acid 1 MG TAB PO SCH (08:42)
[2021-01-24] MEDS: AcetaZOLAMIDE 250 MG TAB PO SCH ×2 (08:43→20:50)
[2021-01-24] MEDS: Diltiazem HCl CD 300 mg Capsule PO SCH (08:43)
[2021-01-25 07:38] VITALS: BP 125/79; TEMP 98.6
[2021-01-25 08:45] LABS: #Eosinphils 0.1 thou/uL (0.0-0.7); #Lymphocytes 1.8 thou/uL (1.20-3.40); #Monocytes 0.3 thou/uL (0.11-0.59); #Neutrophils 5.7 thou/uL (1.40-6.50); %Basophils 0.3 % (0.0-1.0); %Eosinophils 1.5 % (0.0-10.0); %Lymphocytes 22.5 % (21.0-51.0); %Monocytes 4.2 % (0.0-10.0); %Neutrophils 71.5 % (42.0-75.0); Hemoglobin 11.2 g/dL (12.0-16.0); Mean Corpuscular HGB CONC 28.9 g/dL (32.0-36.0); Mean Corpuscular Hemoglobin 28.7 pg (27.0-31.0); Mean Corpuscular Volume 99.2 fL (78.0-98.0); Mean Platelet Volume 7.6 fL (7.4-10.4); Platelet Count 204 thou/uL (130-400); RBC Distribution Width 21.3 % (11.5-14.5)
[2021-01-25] MEDS: Apixaban 5 MG TAB PO SCH (08:53)
[2021-01-25] MEDS: Diltiazem HCl CD 300 mg Capsule PO SCH (08:53)
[2021-01-25] MEDS: AcetaZOLAMIDE 250 MG TAB PO SCH (08:53)
[2021-01-25] MEDS: Carvedilol 6.25 MG TAB PO SCH ×2 (08:54→15:52)
[2021-01-25] MEDS: Flecainide 50 MG TAB PO SCH (08:54)
[2021-01-25] MEDS: Folic Acid 1 MG TAB PO SCH (08:54)
[2021-01-25 08:55] LABS: Anion Gap 12 mmol/L (10-20); BUN (Urea Nitrogen) 10 mg/dL (7.0-18.7); Calc. Creatinine Clearance 380 mL/min (70-130); Calcium 8.9 mg/dL (7.8-10.44); Carbon Dioxide 34 mmol/L (22-29); Chloride 96 mmol/L (98-107); Glucose 94 mg/dL (70-105); Magnesium 1.8 mg/dL (1.6-2.6); Potassium 3.8 mmol/L (3.5-5.1); Sodium 138 mmol/L (136-145)
[2021-01-25] MEDS ORDERED: Labetalol HCl 100 MG/20 ML VIAL SLOW IVP PRN (08:57)
[2021-01-25] MEDS ORDERED: Potassium Chloride 20 MEQ TAB PO SCH (09:00)
[2021-01-25] MEDS ORDERED: Magnesium 2 GM/50 ML 2 GM in Premix Bag 1 BAG IVPB SCH (09:00)
[2021-01-25] MEDS ORDERED: Electrolyte Replacement Protocol 1 EACH FS SCH (09:00)
[2021-01-25] MEDS ORDERED: Artificial Tear Sol 15 ML BOT EA EYE PRN (09:36)
[2021-01-25] MEDS ORDERED: Polyethylene Glycol 3350 17 GM Packet PO PRN (10:15)
[2021-01-25] MEDS ORDERED: Folic Acid 1 MG TAB PO SCH (21:00)
[2021-01-25] MEDS ORDERED: Cyanocobalamin (Vitamin B-12) 1,000 MCG TAB PO SCH (21:00)
[2021-01-25] MEDS ORDERED: Docusate 100 MG CAP PO SCH (21:00)
[2021-01-26] MEDS ORDERED: Multivit, Therapeutic 1 TAB PO SCH (09:00)
== END 2021-01-25 20:19 | DRG 189 ==
LOC: ERS 23:57 → ERHOLD 01-04 02:07 → IMCU/EMU 01-04 09:06 → T4-B 01-13 11:51 → T4-A 01-13 11:59
PROVIDERS: ADMIT Internal Medicine; ATTEND Internal Medicine
PROC: 5A09557 Assistance with Respiratory Ventilation, Greater than 96 Consecutive Hours, Continuous Positive Airway Pressure (ICD-10-PCS; principal; 2021-01-04)
DX: J96.22 Acute and chronic respiratory failure with hypercapnia (principal); G93.41 Metabolic encephalopathy; E66.2 Morbid (severe) obesity with alveolar hypoventilation; Z51.5 Encounter for palliative care; Z66 Do not resuscitate; Z20.822 Contact with and (suspected) exposure to COVID-19; J44.1 Chronic obstructive pulmonary disease with (acute) exacerbation; E87.3 Alkalosis; I50.32 Chronic diastolic (congestive) heart failure; Z68.45 Body mass index [BMI] 70 or greater, adult; I48.92 Unspecified atrial flutter; J96.21 Acute and chronic respiratory failure with hypoxia; D50.9 Iron deficiency anemia, unspecified; M19.90 Unspecified osteoarthritis, unspecified site; E87.6 Hypokalemia; E87.5 Hyperkalemia; M25.561 Pain in right knee; I11.0 Hypertensive heart disease with heart failure; J34.89 Other specified disorders of nose and nasal sinuses; Z88.5 Allergy status to narcotic agent; Z79.01 Long term (current) use of anticoagulants; Z79.899 Other long term (current) drug therapy; Z91.81 History of falling; Z78.1 Physical restraint status; Z99.89 Dependence on other enabling machines and devices; Z91.19 Patient's noncompliance with other medical treatment and regimen
CPT/HCPCS: 0240U; 36415; 36416; 36600; 71045; 80048; 80053; 82607; 82746; 82805; 83735; 83880; 84484; 85025; 93005; 94640; 96374; C9113; J0456; J0696; J1120; J1885; J1940; J2920; J3490; J7050; J7620; Q0162

== ENCOUNTER 2021-04-01 13:06 | Inpatient (IN) | payer MEDICARE ==
[~2021-04-01 13:06] MED LIST: Heparin 1,000 UNITS/ML VIAL ONE
[2021-04-01 14:35] LABS: Hemoglobin 8.5 g/dL (12.0-16.0); Mean Corpuscular HGB CONC 31.9 g/dL (32.0-36.0); Mean Corpuscular Hemoglobin 31.1 pg (27.0-31.0); Mean Corpuscular Volume 97.6 fL (78.0-98.0); Platelet Count 387 thou/uL (130-400); Red Blood Cell (RBC) Count 2.73 mill/uL (4.20-5.40); White Blood Cell (WBC) Count 17.2 thou/uL (4.8-10.8)
[2021-04-01 14:36] LABS: Mean Platelet Volume 6.8 fL (7.4-10.4)
[2021-04-01 14:53] LABS: Anisocytosis SLIGHT = 6-15 cells (100X) (0-5/hpf); Band 1 % (5-11); Lymphocytes 21 % (21-51); MDiff Complete? YES; Monocytes 2 % (0-10); Neutrophil 76 % (42-75); Platelet Morphology Comment Appears Adequate; Polychromasia SLIGHT = 2-3 cells (100X) (0-2/hpf)
[2021-04-01] MEDS ORDERED: Ondansetron PF 4 MG/2 ML Vial ONE (15:06)
[2021-04-01] MEDS ORDERED: Nitroglycerin 2% Ointment 1 INCH/1 GM Packet ONE ×2 (15:18→16:01)
[2021-04-01] MEDS ORDERED: Furosemide 40 MG/4 ML VIAL ONE (15:18)
[2021-04-01 15:28] LABS: ALT (SGPT) Less than 7 U/L (8-55); AST (SGOT) 14 U/L (5-34); Albumin 3.5 g/dL (3.5-5.0); Alkaline Phosphatase 102 U/L (40-110); Anion Gap 12 mmol/L (10-20); BUN (Urea Nitrogen) 6 mg/dL (7.0-18.7); Bilirubin, Total 0.8 mg/dL (0.2-1.2); Calc. Creatinine Clearance 0 mL/min (70-130); Carbon Dioxide 33 mmol/L (22-29); Chloride 95 mmol/L (98-107); Globulin 5.5 g/dL (2.4-3.5); Glucose 122 mg/dL (70-105); Potassium 4.2 mmol/L (3.5-5.1); Sodium 136 mmol/L (136-145)
[2021-04-01] MEDS ORDERED: cefTRIAXone\\ROCEPHIN 2 GM VIAL ONE (17:32)
[2021-04-01 18:42] LABS: Troponin I Less than 0.010 ng/mL (< 0.028)
[2021-04-01] MEDS ORDERED: Senokot S 8.6-50 MG TAB PO PRN (19:03)
[2021-04-01 19:32] LABS: Bacteria/HPF None Seen HPF (None Seen); Bilirubin Negative (Negative); Blood, Urine Negative (Negative); Clarity Clear (Clear); Glucose, Urine (Dipstick) Normal (Negative); Ketone, Urine Negative (Negative); Leukocyte Negative Leu/uL (Negative); Nitrite Negative (Negative); Protein, Urine (Dipstick) 30 mg/dL (Neg-Trace); RBC/HPF 0-3 HPF (0-3); Specific Gravity, Urine 1.012 (1.002-1.036); Squamous Epithelial 0-3 HPF (0-3); WBC/HPF 0-3 HPF (0-3); pH, Urine 5.5 (5.0-9.0)
[2021-04-01] MEDS ORDERED: Bacteriostatic Water 30 ML VIAL FS PRN (19:45)
[2021-04-01 20:02] LABS: SARS-CoV-2 NAA Rapid Test Not Detected (NotDetected)
[2021-04-01] MEDS ORDERED: Ondansetron PF 4 MG/2 ML Vial IVP PRN (22:15)
[2021-04-01] MEDS ORDERED: Ondansetron ODT 4 MG TAB SL PRN (22:15)
[2021-04-01] MEDS: Acetaminophen 325 MG TAB PO PRN (22:42)
[2021-04-01 22:55] LABS: Troponin I Less than 0.010 ng/mL (< 0.028)
[2021-04-01] MEDS: Flecainide 50 MG TAB PO SCH (23:15)
[2021-04-01] MEDS: AcetaZOLAMIDE 250 MG TAB PO SCH (23:15)
[2021-04-01] MEDS: Apixaban 5 MG TAB PO SCH (23:15)
[2021-04-01] MEDS: methylPREDNISolone Sod Succ 40 MG VIAL IVP SCH (23:16)
[2021-04-02] MEDS: Furosemide 40 MG/4 ML VIAL SLOW IVP SCH ×2 (06:20→15:06)
[2021-04-02] MEDS: methylPREDNISolone Sod Succ 40 MG VIAL IVP SCH ×3 (06:21→21:07)
[2021-04-02 07:20] LABS: Anion Gap 17 mmol/L (10-20); BUN (Urea Nitrogen) 7 mg/dL (7.0-18.7); Calc. Creatinine Clearance 316 mL/min (70-130); Calcium 8.9 mg/dL (7.8-10.44); Carbon Dioxide 28 mmol/L (22-29); Chloride 92 mmol/L (98-107); Glucose 133 mg/dL (70-105); Hemoglobin 8.7 g/dL (12.0-16.0); Mean Corpuscular HGB CONC 30.1 g/dL (32.0-36.0); Mean Corpuscular Hemoglobin 30.1 pg (27.0-31.0); Mean Platelet Volume 6.8 fL (7.4-10.4); Platelet Count 391 thou/uL (130-400); Potassium 5.7 mmol/L (3.5-5.1); Sodium 131 mmol/L (136-145); White Blood Cell (WBC) Count 18.5 thou/uL (4.8-10.8)
[2021-04-02 08:05] LABS: Band 7 % (5-11); Lymphocytes 5 % (21-51); MDiff Complete? YES; Metamyelocyte 1 % (0-0); Neutrophil 87 % (42-75); Nucleated RBC 2 % (0); Platelet Morphology Comment Appears Adequate; Polychromasia SLIGHT = 2-3 cells (100X) (0-2/hpf)
[2021-04-02] MEDS: Diltiazem HCl CD 300 mg Capsule PO SCH (09:20)
[2021-04-02] MEDS: Carvedilol 6.25 MG TAB PO SCH ×2 (09:21→09:33)
[2021-04-02] MEDS: Apixaban 5 MG TAB PO SCH ×2 (09:22→21:07)
[2021-04-02] MEDS: AcetaZOLAMIDE 250 MG TAB PO SCH ×2 (09:22→09:26)
[2021-04-02] MEDS: Flecainide 50 MG TAB PO SCH ×2 (09:22→21:07)
[2021-04-02] MEDS: Folic Acid 1 MG TAB PO SCH (09:22)
[2021-04-02] MEDS: Azithromycin 500 MG in Sodium Chloride 0.9% 250 ML 250 ML IVPB SCH (09:26)
[2021-04-02 12:19] LABS: Anion Gap 21 mmol/L (10-20); BUN (Urea Nitrogen) 8 mg/dL (7.0-18.7); Calc. Creatinine Clearance 289 mL/min (70-130); Calcium 9.4 mg/dL (7.8-10.44); Carbon Dioxide 25 mmol/L (22-29); Chloride 95 mmol/L (98-107); Glucose 151 mg/dL (70-105); Potassium 5.2 mmol/L (3.5-5.1); Sodium 136 mmol/L (136-145)
[2021-04-02] MEDS ORDERED: Ondansetron PF 4 MG/2 ML Vial IVP PRN (14:34)
[2021-04-02] MEDS ORDERED: cefTRIAXone\\ROCEPHIN 1 GM in Sodium Chloride 0.9% 100 ML IVPB SCH (17:00)
[2021-04-02] MEDS: Cefepime 1 GM in Sodium Chloride 0.9% 100 ML IVPB SCH (17:24)
[2021-04-02] MEDS: Vancomycin HCl 1.5 GM in Sodium Chloride 0.9% 250 ML 300 ML IVPB SCH (19:36)
[2021-04-02] MEDS: Nystatin Powder 15 GM BOT TOP SCH (21:06)
[2021-04-03] MEDS: Vancomycin HCl 1.5 GM in Sodium Chloride 0.9% 250 ML 300 ML IVPB SCH ×2 (01:18→10:37)
[2021-04-03] MEDS: Cefepime 1 GM in Sodium Chloride 0.9% 100 ML IVPB SCH (03:33)
[2021-04-03] MEDS: Furosemide 40 MG/4 ML VIAL SLOW IVP SCH ×2 (05:09→14:47)
[2021-04-03] MEDS: Azithromycin 500 MG in Sodium Chloride 0.9% 250 ML 250 ML IVPB SCH (09:17)
[2021-04-03] MEDS: Flecainide 50 MG TAB PO SCH ×2 (09:18→20:19)
[2021-04-03] MEDS: Diltiazem HCl CD 300 mg Capsule PO SCH (09:18)
[2021-04-03] MEDS: Folic Acid 1 MG TAB PO SCH (09:18)
[2021-04-03] MEDS: Apixaban 5 MG TAB PO SCH ×2 (09:18→20:19)
[2021-04-03] MEDS: methylPREDNISolone Sod Succ 40 MG VIAL IVP SCH ×2 (09:20→20:19)
[2021-04-03] MEDS: Nystatin Powder 15 GM BOT TOP SCH ×2 (09:21→20:20)
[2021-04-03 11:51] LABS: Hemoglobin 8.7 g/dL (12.0-16.0); Mean Corpuscular HGB CONC 29.3 g/dL (32.0-36.0); Mean Corpuscular Hemoglobin 29.6 pg (27.0-31.0); Mean Platelet Volume 6.7 fL (7.4-10.4); Platelet Count 438 thou/uL (130-400); RBC Distribution Width 16.5 % (11.5-14.5); Red Blood Cell (RBC) Count 2.93 mill/uL (4.20-5.40); White Blood Cell (WBC) Count 18.1 thou/uL (4.8-10.8)
[2021-04-03 11:56] LABS: ALT (SGPT) 24 U/L (8-55); AST (SGOT) 68 U/L (5-34); Albumin 3.8 g/dL (3.5-5.0); Alkaline Phosphatase 113 U/L (40-110); Anion Gap 16 mmol/L (10-20); BUN (Urea Nitrogen) 16 mg/dL (7.0-18.7); Calc. Creatinine Clearance 263 mL/min (70-130); Calcium 8.9 mg/dL (7.8-10.44); Carbon Dioxide 27 mmol/L (22-29); Chloride 94 mmol/L (98-107); Globulin 5.5 g/dL (2.4-3.5); Glucose 146 mg/dL (70-105); Potassium 4.7 mmol/L (3.5-5.1); Protein, Total 9.3 g/dL (6.0-8.3); Sodium 132 mmol/L (136-145)
[2021-04-03 12:12] LABS: #Eosinphils 0.1 thou/uL (0.0-0.7); #Lymphocytes 1.9 thou/uL (1.20-3.40); #Monocytes 0.4 thou/uL (0.11-0.59); #Neutrophils 15.7 thou/uL (1.40-6.50); %Basophils 0.1 % (0.0-1.0); %Eosinophils 0.3 % (0.0-10.0); %Lymphocytes 10.4 % (21.0-51.0); %Monocytes 2.1 % (0.0-10.0); %Neutrophils 87.1 % (42.0-75.0); Band 3 % (5-11); Lymphocytes 11 % (21-51); MDiff Complete? YES; Monocytes 2 % (0-10); Neutrophil 84 % (42-75); Nucleated RBC 2 % (0); Platelet Morphology Comment Appears Increased; Polychromasia MODERATE = 3-4 cells (100X) (0-2/hpf)
[2021-04-03] MEDS: AMPicillin 2 GM in Sodium Chloride 0.9% 100 ML IVPB SCH ×2 (14:47→20:18)
[2021-04-04] MEDS: AMPicillin 2 GM in Sodium Chloride 0.9% 100 ML IVPB SCH ×4 (02:26→21:05)
[2021-04-04] MEDS: Furosemide 40 MG/4 ML VIAL SLOW IVP SCH ×2 (05:45→14:45)
[2021-04-04 08:08] LABS: ALT (SGPT) 92 U/L (8-55); AST (SGOT) 262 U/L (5-34); Albumin 3.9 g/dL (3.5-5.0); Alkaline Phosphatase 126 U/L (40-110); Anion Gap 10 mmol/L (10-20); BUN (Urea Nitrogen) 24 mg/dL (7.0-18.7); Calc. Creatinine Clearance 234 mL/min (70-130); Calcium 9.2 mg/dL (7.8-10.44); Carbon Dioxide 36 mmol/L (22-29); Chloride 93 mmol/L (98-107); Globulin 5.7 g/dL (2.4-3.5); Glucose 136 mg/dL (70-105); Magnesium 2.3 mg/dL (1.6-2.6); Potassium 5.1 mmol/L (3.5-5.1); Protein, Total 9.6 g/dL (6.0-8.3); Sodium 134 mmol/L (136-145)
[2021-04-04 08:09] LABS: #Monocytes 0.9 thou/uL (0.11-0.59); #Neutrophils 12.6 thou/uL (1.40-6.50); %Basophils 0.3 % (0.0-1.0); %Eosinophils 0.2 % (0.0-10.0); %Lymphocytes 12.6 % (21.0-51.0); %Monocytes 5.7 % (0.0-10.0); %Neutrophils 81.3 % (42.0-75.0); Anisocytosis SLIGHT = 6-15 cells (100X) (0-5/hpf); Hemoglobin 9.3 g/dL (12.0-16.0); MDiff Complete? YES; Mean Corpuscular HGB CONC 29.8 g/dL (32.0-36.0); Mean Corpuscular Hemoglobin 29.7 pg (27.0-31.0); Mean Corpuscular Volume 99.5 fL (78.0-98.0); Mean Platelet Volume 6.8 fL (7.4-10.4); Platelet Count 386 thou/uL (130-400); Platelet Morphology Comment Appears Adequate; Polychromasia MODERATE = 3-4 cells (100X) (0-2/hpf); RBC Distribution Width 16.8 % (11.5-14.5); Red Blood Cell (RBC) Count 3.12 mill/uL (4.20-5.40); White Blood Cell (WBC) Count 15.5 thou/uL (4.8-10.8)
[2021-04-04] MEDS: Apixaban 5 MG TAB PO SCH ×2 (09:21→21:06)
[2021-04-04] MEDS: Folic Acid 1 MG TAB PO SCH (09:21)
[2021-04-04] MEDS: Flecainide 50 MG TAB PO SCH ×2 (09:21→21:06)
[2021-04-04] MEDS: Diltiazem HCl CD 300 mg Capsule PO SCH (09:21)
[2021-04-04] MEDS: Nystatin Powder 15 GM BOT TOP SCH ×2 (09:22→21:06)
[2021-04-04] MEDS: methylPREDNISolone Sod Succ 40 MG VIAL IVP SCH ×2 (09:22→21:06)
[2021-04-04] MEDS: Acetaminophen 325 MG TAB PO PRN ×2 (15:25→21:14)
[2021-04-05] MEDS: AMPicillin 2 GM in Sodium Chloride 0.9% 100 ML IVPB SCH ×4 (02:44→20:22)
[2021-04-05 05:09] LABS: Hemoglobin 9.5 g/dL (12.0-16.0); Mean Corpuscular HGB CONC 29.1 g/dL (32.0-36.0); Mean Corpuscular Hemoglobin 28.8 pg (27.0-31.0); Mean Corpuscular Volume 99.2 fL (78.0-98.0); Platelet Count 379 thou/uL (130-400); Red Blood Cell (RBC) Count 3.29 mill/uL (4.20-5.40); White Blood Cell (WBC) Count 13.8 thou/uL (4.8-10.8)
[2021-04-05] MEDS: Furosemide 40 MG/4 ML VIAL SLOW IVP SCH ×2 (05:16→15:45)
[2021-04-05 05:20] LABS: Anion Gap 11 mmol/L (10-20); BUN (Urea Nitrogen) 29 mg/dL (7.0-18.7); Calc. Creatinine Clearance 243 mL/min (70-130); Calcium 9.1 mg/dL (7.8-10.44); Carbon Dioxide 35 mmol/L (22-29); Chloride 94 mmol/L (98-107); Glucose 159 mg/dL (70-105); Potassium 5.1 mmol/L (3.5-5.1); Sodium 135 mmol/L (136-145)
[2021-04-05 06:58] LABS: #Lymphocytes 1.9 thou/uL (1.20-3.40); #Monocytes 0.7 thou/uL (0.11-0.59); #Neutrophils 11.1 thou/uL (1.40-6.50); %Basophils 0.1 % (0.0-1.0); %Eosinophils 0.3 % (0.0-10.0); %Lymphocytes 13.8 % (21.0-51.0); %Monocytes 5.2 % (0.0-10.0); %Neutrophils 80.7 % (42.0-75.0)
[2021-04-05] MEDS: Diltiazem HCl CD 300 mg Capsule PO SCH (09:40)
[2021-04-05] MEDS: Apixaban 5 MG TAB PO SCH ×2 (09:40→20:21)
[2021-04-05] MEDS: Folic Acid 1 MG TAB PO SCH (09:40)
[2021-04-05] MEDS: Flecainide 50 MG TAB PO SCH ×2 (09:40→20:21)
[2021-04-05] MEDS: Nystatin Powder 15 GM BOT TOP SCH ×2 (09:41→20:23)
[2021-04-05] MEDS: methylPREDNISolone Sod Succ 40 MG VIAL IVP SCH (09:41)
[2021-04-05] MEDS: Acetaminophen 325 MG TAB PO PRN (20:21)
[2021-04-06] MEDS: AMPicillin 2 GM in Sodium Chloride 0.9% 100 ML IVPB SCH ×4 (01:05→20:32)
[2021-04-06] MEDS: Furosemide 40 MG/4 ML VIAL SLOW IVP SCH ×2 (05:26→14:07)
[2021-04-06 05:57] LABS: ALT (SGPT) 289 U/L (8-55); AST (SGOT) 436 U/L (5-34); Albumin 3.7 g/dL (3.5-5.0); Alkaline Phosphatase 217 U/L (40-110); Anion Gap 16 mmol/L (10-20); BUN (Urea Nitrogen) 30 mg/dL (7.0-18.7); Calc. Creatinine Clearance 271 mL/min (70-130); Calcium 8.8 mg/dL (7.8-10.44); Carbon Dioxide 30 mmol/L (22-29); Chloride 94 mmol/L (98-107); Globulin 5.4 g/dL (2.4-3.5); Glucose 171 mg/dL (70-105); Magnesium 2.3 mg/dL (1.6-2.6); Potassium 5.2 mmol/L (3.5-5.1); Protein, Total 9.1 g/dL (6.0-8.3); Sodium 135 mmol/L (136-145)
[2021-04-06 05:58] LABS: Band 2 % (5-11); Hemoglobin 9.7 g/dL (12.0-16.0); Lymphocytes 8 % (21-51); MDiff Complete? YES; Mean Corpuscular HGB CONC 29.9 g/dL (32.0-36.0); Mean Corpuscular Hemoglobin 29.7 pg (27.0-31.0); Mean Corpuscular Volume 99.2 fL (78.0-98.0); Mean Platelet Volume 7.4 fL (7.4-10.4); Metamyelocyte 1 % (0-0); Monocytes 8 % (0-10); Neutrophil 81 % (42-75); Nucleated RBC 2 % (0); Platelet Count 360 thou/uL (130-400); Polychromasia SLIGHT = 2-3 cells (100X) (0-2/hpf); RBC Distribution Width 16.8 % (11.5-14.5); Red Blood Cell (RBC) Count 3.26 mill/uL (4.20-5.40); Vacuoles SLIGHT; White Blood Cell (WBC) Count 17.7 thou/uL (4.8-10.8)
[2021-04-06] MEDS: Flecainide 50 MG TAB PO SCH ×2 (13:56→20:33)
[2021-04-06] MEDS: Apixaban 5 MG TAB PO SCH ×2 (13:56→20:33)
[2021-04-06] MEDS: Diltiazem HCl CD 300 mg Capsule PO SCH (13:56)
[2021-04-06] MEDS: Folic Acid 1 MG TAB PO SCH (13:57)
[2021-04-06] MEDS: Nystatin Powder 15 GM BOT TOP SCH ×2 (13:57→20:33)
[2021-04-06] MEDS: methylPREDNISolone Sod Succ 40 MG VIAL IVP SCH (13:57)
[2021-04-06 15:22] LABS: Anion Gap 16 mmol/L (10-20); BUN (Urea Nitrogen) 30 mg/dL (7.0-18.7); Calc. Creatinine Clearance 271 mL/min (70-130); Calcium 9.1 mg/dL (7.8-10.44); Carbon Dioxide 34 mmol/L (22-29); Chloride 92 mmol/L (98-107); Glucose 160 mg/dL (70-105); Potassium 4.3 mmol/L (3.5-5.1); Sodium 138 mmol/L (136-145)
[2021-04-07] MEDS: AMPicillin 2 GM in Sodium Chloride 0.9% 100 ML IVPB SCH (03:08)
[2021-04-07] MEDS: diphenhydrAMINE 25 MG CAP PO PRN ×2 (04:51→20:12)
[2021-04-07 05:02] LABS: Mean Corpuscular HGB CONC 29.1 g/dL (32.0-36.0); Mean Corpuscular Hemoglobin 29.2 pg (27.0-31.0); Mean Platelet Volume 7.1 fL (7.4-10.4); Platelet Count 367 thou/uL (130-400); RBC Distribution Width 16.8 % (11.5-14.5); Red Blood Cell (RBC) Count 3.41 mill/uL (4.20-5.40); White Blood Cell (WBC) Count 19.9 thou/uL (4.8-10.8)
[2021-04-07 05:38] LABS: ALT (SGPT) 343 U/L (8-55); AST (SGOT) 382 U/L (5-34); Albumin 3.8 g/dL (3.5-5.0); Alkaline Phosphatase 265 U/L (40-110); Anion Gap 12 mmol/L (10-20); BUN (Urea Nitrogen) 30 mg/dL (7.0-18.7); Band 4 % (5-11); Calc. Creatinine Clearance 284 mL/min (70-130); Calcium 9.2 mg/dL (7.8-10.44); Carbon Dioxide 37 mmol/L (22-29); Chloride 92 mmol/L (98-107); Globulin 5.3 g/dL (2.4-3.5); Glucose 154 mg/dL (70-105); Lymphocytes 17 % (21-51); MDiff Complete? YES; Magnesium 2.4 mg/dL (1.6-2.6); Monocytes 3 % (0-10); Neutrophil 76 % (42-75); Nucleated RBC 4 % (0); Potassium 4.4 mmol/L (3.5-5.1); Protein, Total 9.1 g/dL (6.0-8.3); Sodium 137 mmol/L (136-145)
[2021-04-07 05:55] LABS: HBCM Index 0.07 S/CO (0-0.79); HBSAg Index 0.24 S/CO (0-0.99); Hep A IgM AB Non-Reactive (NonReactive); Hep A IgM S/CO 0.12 S/CO (0-0.79); Hep B Surf Ag Non-Reactive S/CO (NonReactive); Hep C IgG Ab Non-Reactive (NonReactive); Hep C Index 0.11 S/CO (0-0.79); Hepatitis B Core IgM Abs Non-Reactive (NonReactive)
[2021-04-07] MEDS: Furosemide 40 MG/4 ML VIAL SLOW IVP SCH ×2 (06:10→13:09)
[2021-04-07] MEDS: Diltiazem HCl CD 300 mg Capsule PO SCH (09:32)
[2021-04-07] MEDS: Apixaban 5 MG TAB PO SCH ×2 (09:32→20:10)
[2021-04-07] MEDS: Nystatin Powder 15 GM BOT TOP SCH ×2 (09:33→20:10)
[2021-04-07] MEDS: methylPREDNISolone Sod Succ 40 MG VIAL IVP SCH (09:33)
[2021-04-07] MEDS: Flecainide 50 MG TAB PO SCH ×2 (09:33→20:09)
[2021-04-07] MEDS: Folic Acid 1 MG TAB PO SCH (09:33)
[2021-04-07] MEDS: Vancomycin HCl 1.5 GM in Sodium Chloride 0.9% 250 ML 300 ML IVPB SCH ×2 (13:09→22:15)
[2021-04-07 15:23] VITALS: BMI 80.3
[2021-04-08] MEDS: Flecainide 50 MG TAB PO SCH ×2 (09:12→20:56)
[2021-04-08] MEDS: Folic Acid 1 MG TAB PO SCH (09:13)
[2021-04-08] MEDS: Diltiazem HCl CD 300 mg Capsule PO SCH (09:13)
[2021-04-08] MEDS: Apixaban 5 MG TAB PO SCH ×2 (09:13→20:56)
[2021-04-08] MEDS: Nystatin Powder 15 GM BOT TOP SCH ×2 (09:14→21:04)
[2021-04-08] MEDS: Furosemide 40 MG/4 ML VIAL SLOW IVP SCH ×2 (11:36→16:04)
[2021-04-08] MEDS: methylPREDNISolone Sod Succ 40 MG VIAL IVP SCH (11:37)
[2021-04-08] MEDS: Vancomycin HCl 1.5 GM in Sodium Chloride 0.9% 250 ML 300 ML IVPB SCH ×4 (16:04→20:57)
[2021-04-08] MEDS: Acetaminophen 325 MG TAB PO PRN (20:56)
[2021-04-09] MEDS: Vancomycin HCl 1.5 GM in Sodium Chloride 0.9% 250 ML 300 ML IVPB SCH (05:43)
[2021-04-09] MEDS ORDERED: Furosemide 20 MG TAB PO SCH (09:00)
[2021-04-09] MEDS: Folic Acid 1 MG TAB PO SCH (09:01)
[2021-04-09] MEDS: Diltiazem HCl CD 300 mg Capsule PO SCH (09:02)
[2021-04-09] MEDS: methylPREDNISolone Sod Succ 40 MG VIAL IVP SCH (09:02)
[2021-04-09] MEDS: Flecainide 50 MG TAB PO SCH ×2 (09:02→22:24)
[2021-04-09] MEDS: Furosemide 40 MG TAB PO SCH ×2 (09:02→14:28)
[2021-04-09] MEDS: Apixaban 5 MG TAB PO SCH ×2 (09:02→22:26)
[2021-04-09] MEDS: Nystatin Powder 15 GM BOT TOP SCH ×2 (09:03→22:29)
[2021-04-09 09:29] LABS: Hemoglobin 9.6 g/dL (12.0-16.0); Mean Corpuscular HGB CONC 28.2 g/dL (32.0-36.0); Mean Corpuscular Hemoglobin 28.9 pg (27.0-31.0); Mean Platelet Volume 7.1 fL (7.4-10.4); Platelet Count 308 thou/uL (130-400); RBC Distribution Width 17.5 % (11.5-14.5); Red Blood Cell (RBC) Count 3.33 mill/uL (4.20-5.40)
[2021-04-09 09:39] LABS: ALT (SGPT) 176 U/L (8-55); AST (SGOT) 42 U/L (5-34); Albumin 3.8 g/dL (3.5-5.0); Alkaline Phosphatase 233 U/L (40-110); BUN (Urea Nitrogen) 21 mg/dL (7.0-18.7); Calc. Creatinine Clearance 313 mL/min (70-130); Globulin 4.5 g/dL (2.4-3.5); Glucose 164 mg/dL (70-105); Protein, Total 8.3 g/dL (6.0-8.3)
[2021-04-09 09:50] LABS: Anion Gap 14 mmol/L (10-20); Carbon Dioxide 41 mmol/L (22-29); Chloride 90 mmol/L (98-107); Potassium 4.7 mmol/L (3.5-5.1); Sodium 140 mmol/L (136-145)
[2021-04-09 09:53] LABS: Hypochromia SLIGHT = 6-15 cells (100X) (0-5/hpf); Lymphocytes 11 % (21-51); MDiff Complete? YES; Macrocytosis SLIGHT = 6-15 cells (100X) (0-5/hpf); Monocytes 12 % (0-10); Neutrophil 77 % (42-75); Ovalocytes SLIGHT = 2-5 cells (100X) (0-1/hpf); Platelet Morphology Comment Appears Adequate; Polychromasia MODERATE = 3-4 cells (100X) (0-2/hpf); Stomatocytes SLIGHT = 2-5 cells (100X) (0-1/hpf)
[2021-04-09 11:20] LABS: Vancomycin, Trough 22.1 ug/mL
[2021-04-09] MEDS ORDERED: Vancomycin HCl 1.25 GM in Sodium Chloride 0.9% 250 ML 250 ML IVPB SCH (12:00)
[2021-04-09] MEDS: Acetaminophen 325 MG TAB PO PRN (22:24)
[2021-04-09] MEDS: AMOXicillin 250 MG CAP PO SCH (22:25)
[2021-04-09] MEDS: diphenhydrAMINE 25 MG CAP PO PRN (23:30)
[2021-04-10] MEDS: Folic Acid 1 MG TAB PO SCH (08:52)
[2021-04-10] MEDS: Diltiazem HCl CD 300 mg Capsule PO SCH (08:52)
[2021-04-10] MEDS: Flecainide 50 MG TAB PO SCH (08:52)
[2021-04-10] MEDS: AMOXicillin 250 MG CAP PO SCH (08:53)
[2021-04-10] MEDS: Furosemide 40 MG TAB PO SCH (08:53)
[2021-04-10] MEDS: methylPREDNISolone Sod Succ 40 MG VIAL IVP SCH (08:53)
[2021-04-10] MEDS: Apixaban 5 MG TAB PO SCH (08:53)
[2021-04-10] MEDS: Nystatin Powder 15 GM BOT TOP SCH (08:54)
[2021-04-10 11:43] VITALS: BP 144/63; TEMP 98.8
== END 2021-04-10 14:05 | disposition home or self-care (01) | DRG 291 ==
LOC: ERS 13:06 → 2SW 17:23 → 2NO 04-02 19:07
PROVIDERS: ADMIT Internal Medicine; ATTEND Internal Medicine
PROC: 5A09357 Assistance with Respiratory Ventilation, Less than 24 Consecutive Hours, Continuous Positive Airway Pressure (ICD-10-PCS; 2021-04-04)
PROC: 02HV33Z Insertion of Infusion Device into Superior Vena Cava, Percutaneous Approach (ICD-10-PCS; principal; 2021-04-08)
PROC: B548ZZA Ultrasonography of Superior Vena Cava, Guidance (ICD-10-PCS; 2021-04-08)
DX: I11.0 Hypertensive heart disease with heart failure (principal); J96.21 Acute and chronic respiratory failure with hypoxia; J18.9 Pneumonia, unspecified organism; J96.22 Acute and chronic respiratory failure with hypercapnia; E66.2 Morbid (severe) obesity with alveolar hypoventilation; Z68.45 Body mass index [BMI] 70 or greater, adult; R78.81 Bacteremia; I50.33 Acute on chronic diastolic (congestive) heart failure; Z20.822 Contact with and (suspected) exposure to COVID-19; D50.9 Iron deficiency anemia, unspecified; M19.90 Unspecified osteoarthritis, unspecified site; E87.5 Hyperkalemia; I48.91 Unspecified atrial fibrillation; T38.0X5A Adverse effect of glucocorticoids and synthetic analogues, initial encounter; Z79.01 Long term (current) use of anticoagulants; Z79.899 Other long term (current) drug therapy; Z99.81 Dependence on supplemental oxygen; Z88.5 Allergy status to narcotic agent; Z88.8 Allergy status to other drugs, medicaments and biological substances; Z91.018 Allergy to other foods
CPT/HCPCS: 0240U; 36415; 36416; 36569; 71045; 76705; 78227; 80048; 80053; 80074; 80202; 81003; 81015; 83605; 83735; 83880; 84145; 84484; 85025; 86140; 87040; 87077; 87149; 87186; 93005; 93306; 93798; 94660; 94760; 96365; 96375; A9537; C1751; J0290; J0456; J0692; J0696; J1644; J1940; J2405; J2920; J3370; J3490; J7050; Q0163

== ENCOUNTER 2021-05-09 11:46 | Emergency (ER) | payer MEDICARE ==
[2021-05-09 14:18] LABS: #Basophils 0.1 thou/uL (0.0-0.2); #Eosinphils 0.1 thou/uL (0.0-0.7); #Lymphocytes 2.1 thou/uL (1.20-3.40); #Monocytes 0.5 thou/uL (0.11-0.59); #Neutrophils 7.1 thou/uL (1.40-6.50); %Basophils 0.7 % (0.0-1.0); %Eosinophils 0.7 % (0.0-10.0); %Monocytes 5.1 % (0.0-10.0); %Neutrophils 72.6 % (42.0-75.0); Hemoglobin 10.1 g/dL (12.0-16.0); Mean Corpuscular HGB CONC 28.6 g/dL (32.0-36.0); Mean Corpuscular Hemoglobin 28.8 pg (27.0-31.0); Mean Platelet Volume 7.1 fL (7.4-10.4); Platelet Count 303 thou/uL (130-400); RBC Distribution Width 16.9 % (11.5-14.5); Red Blood Cell (RBC) Count 3.52 mill/uL (4.20-5.40); White Blood Cell (WBC) Count 9.8 thou/uL (4.8-10.8)
[2021-05-09 14:36] LABS: ALT (SGPT) Less than 7 U/L (8-55); AST (SGOT) 13 U/L (5-34); Albumin 3.3 g/dL (3.5-5.0); Alkaline Phosphatase 99 U/L (40-110); Anion Gap 13 mmol/L (10-20); BUN (Urea Nitrogen) 6 mg/dL (7.0-18.7); Calc. Creatinine Clearance 0 mL/min (70-130); Carbon Dioxide 34 mmol/L (22-29); Chloride 95 mmol/L (98-107); Globulin 5.2 g/dL (2.4-3.5); Glucose 92 mg/dL (70-105); Potassium 4.5 mmol/L (3.5-5.1); Protein, Total 8.5 g/dL (6.0-8.3); Sodium 137 mmol/L (136-145)
[2021-05-09] MEDS ORDERED: Furosemide 40 MG TAB ONE (15:56)
[2021-05-09 16:02] LABS: Bilirubin Negative (Negative); Blood, Urine Negative (Negative); Clarity Clear (Clear); Glucose, Urine (Dipstick) Normal (Negative); Ketone, Urine Negative (Negative); Leukocyte Negative Leu/uL (Negative); Nitrite Negative (Negative); Protein, Urine (Dipstick) Negative (Neg-Trace); Specific Gravity, Urine 1.012 (1.002-1.036); Urobilinogen Normal mg/dL (Less than 2); pH, Urine 5.5 (5.0-9.0)
== END 2021-05-09 19:19 | disposition home or self-care (01) ==
LOC: ERS 11:46
DX: M79.604 Pain in right leg (principal); M79.605 Pain in left leg; R60.0 Localized edema; I11.0 Hypertensive heart disease with heart failure; I50.9 Heart failure, unspecified; D50.9 Iron deficiency anemia, unspecified; M19.90 Unspecified osteoarthritis, unspecified site; Z79.01 Long term (current) use of anticoagulants; Z79.899 Other long term (current) drug therapy
CPT/HCPCS: 36415; 71045; 80053; 81003; 83880; 84484; 85025; 93005

== ENCOUNTER 2021-05-20 08:13 | Inpatient (IN) | payer MEDICARE ==
[2021-05-20] MEDS ORDERED: Nitroglycerin 2% Ointment 1 INCH/1 GM Packet ONE ×2 (08:49→15:26)
[2021-05-20] MEDS ORDERED: Furosemide 40 MG/4 ML VIAL ONE ×2 (08:49→15:26)
[2021-05-20 10:18] LABS: Actual Bicarbonate (HCO3a) 35.9 mEq/L (22-28); Analyzer IN Cardio ER; Base Excess (BEa) 7.5 mEq/L (-2.0 to +3.0); Calcium, Ionized (arterial) 1.15 mmol/L (1.12-1.30); Carboxyhemoglobin (COHb) 1.5 gm% (0.0-3.0); O2 Tension (PaO2), arterial 63.1 mmHg (80.0-100.0); Potassium - ABG Lab 4.29 mmol/L (3.70-5.30); pH, Arterial 7.29 (7.35-7.45)
[2021-05-20 10:27] LABS: ALT (SGPT) Less than 7 U/L (8-55); AST (SGOT) 10 U/L (5-34); Alkaline Phosphatase 114 U/L (40-110); Anion Gap 12 mmol/L (10-20); BUN (Urea Nitrogen) 14 mg/dL (7.0-18.7); Bilirubin, Total 1.1 mg/dL (0.2-1.2); CK (CPK) 17 U/L (29-168); Calc. Creatinine Clearance 0 mL/min (70-130); Carbon Dioxide 32 mmol/L (22-29); Chloride 96 mmol/L (98-107); Glucose 93 mg/dL (70-105); Lipase 8 U/L (8-78); Potassium 4.4 mmol/L (3.5-5.1); Sodium 136 mmol/L (136-145)
[2021-05-20 10:30] LABS: #Eosinphils 0.1 thou/uL (0.0-0.7); #Lymphocytes 2.1 thou/uL (1.20-3.40); #Monocytes 0.7 thou/uL (0.11-0.59); #Neutrophils 8.8 thou/uL (1.40-6.50); %Basophils 0.2 % (0.0-1.0); %Eosinophils 0.7 % (0.0-10.0); %Lymphocytes 17.7 % (21.0-51.0); %Monocytes 6.1 % (0.0-10.0); %Neutrophils 75.3 % (42.0-75.0); Hemoglobin 9.9 g/dL (12.0-16.0); Hypochromia SLIGHT = 6-15 cells (100X) (0-5/hpf); MDiff Complete? YES; Macrocytosis SLIGHT = 6-15 cells (100X) (0-5/hpf); Mean Corpuscular HGB CONC 29.4 g/dL (32.0-36.0); Mean Corpuscular Hemoglobin 29.9 pg (27.0-31.0); Mean Platelet Volume 7.4 fL (7.4-10.4); Platelet Count 288 thou/uL (130-400); Platelet Morphology Comment Appears Adequate; Polychromasia MODERATE = 3-4 cells (100X) (0-2/hpf); RBC Distribution Width 17.2 % (11.5-14.5); White Blood Cell (WBC) Count 11.7 thou/uL (4.8-10.8)
[2021-05-20 10:49] LABS: SARS-CoV-2 NAA Rapid Test Not Detected (NotDetected)
[2021-05-20 10:55] LABS: CO2 Tension 75.6 mmHg (35.0-45.0)
[2021-05-20 10:56] LABS: Puncture Site RRA
[2021-05-20 11:48] LABS: Magnesium 2.1 mg/dL (1.6-2.6); Phosphorus 3.7 mg/dL (2.3-4.7)
[2021-05-20] MEDS ORDERED: Calcium Carbonate 500 MG ChewTAB PO PRN (12:49)
[2021-05-20] MEDS ORDERED: Electrolyte Replacement Protocol 1 EACH IVPB PRN (12:59)
[2021-05-20] MEDS ORDERED: Flecainide 50 MG TAB PO SCH (13:15)
[2021-05-20] MEDS ORDERED: Electrolyte Replacement Protocol FS PRN (13:15)
[2021-05-20 13:28] LABS: Troponin I Less than 0.010 ng/mL (< 0.028)
[2021-05-20] MEDS ORDERED: cefTRIAXone\\ROCEPHIN 1 GM VIAL ONE (15:26)
[2021-05-20] MEDS: cefTRIAXone\\ROCEPHIN 1 GM in Sodium Chloride 0.9% 100 ML IVPB SCH (16:14)
[2021-05-20] MEDS: Furosemide 40 MG/4 ML VIAL SLOW IVP SCH (16:15)
[2021-05-20] MEDS: Nitroglycerin 2% Ointment 1 INCH/1 GM Packet TOP SCH ×2 (16:15→23:22)
[2021-05-20 17:10] LABS: Troponin I Less than 0.010 ng/mL (< 0.028)
[2021-05-20] MEDS ORDERED: methylPREDNISolone Sod Succ 40 MG VIAL ONE (18:54)
[2021-05-20] MEDS: methylPREDNISolone Sod Succ 40 MG VIAL IVP SCH ×2 (18:59→23:22)
[2021-05-20] MEDS ORDERED: Nystatin Powder 15 GM BOT TOP SCH (21:00)
[2021-05-20] MEDS: Apixaban 5 MG TAB PO SCH (23:19)
[2021-05-20] MEDS: Cyanocobalamin (Vitamin B-12) 1,000 MCG TAB PO SCH (23:19)
[2021-05-20] MEDS: Famotidine 20 MG TAB PO SCH (23:19)
[2021-05-20] MEDS: Flecainide 50 MG TAB PO SCH (23:20)
[2021-05-20] MEDS: Nystatin Powder 15 GM BOT TOP SCH (23:21)
[2021-05-20] MEDS: Senokot S 8.6-50 MG TAB PO SCH (23:21)
[2021-05-20 23:37] VITALS: BMI 90.3
[2021-05-21] MEDS: methylPREDNISolone Sod Succ 40 MG VIAL IVP SCH (05:46)
[2021-05-21] MEDS: Furosemide 40 MG/4 ML VIAL SLOW IVP SCH ×2 (05:46→13:00)
[2021-05-21] MEDS: Nitroglycerin 2% Ointment 1 INCH/1 GM Packet TOP SCH ×2 (05:47→13:06)
[2021-05-21] MEDS: Diltiazem HCl CD 300 mg Capsule PO SCH (09:30)
[2021-05-21] MEDS: Apixaban 5 MG TAB PO SCH ×2 (09:30→20:53)
[2021-05-21] MEDS: Flecainide 50 MG TAB PO SCH ×2 (09:31→20:53)
[2021-05-21] MEDS: Famotidine 20 MG TAB PO SCH ×2 (09:31→20:53)
[2021-05-21] MEDS: Senokot S 8.6-50 MG TAB PO SCH ×2 (09:32→20:52)
[2021-05-21] MEDS: Folic Acid 1 MG TAB PO SCH (09:32)
[2021-05-21 11:18] LABS: Anion Gap 11 mmol/L (10-20); BUN (Urea Nitrogen) 18 mg/dL (7.0-18.7); Calc. Creatinine Clearance 245 mL/min (70-130); Carbon Dioxide 33 mmol/L (22-29); Chloride 92 mmol/L (98-107); Glucose 156 mg/dL (70-105); Magnesium 2.1 mg/dL (1.6-2.6); Sodium 131 mmol/L (136-145)
[2021-05-21 11:42] LABS: #Lymphocytes 1.2 thou/uL (1.20-3.40); #Monocytes 0.1 thou/uL (0.11-0.59); #Neutrophils 10.9 thou/uL (1.40-6.50); %Basophils 0.1 % (0.0-1.0); %Lymphocytes 9.5 % (21.0-51.0); %Monocytes 0.8 % (0.0-10.0); %Neutrophils 89.5 % (42.0-75.0); Hemoglobin 9.2 g/dL (12.0-16.0); Hypochromia SLIGHT = 6-15 cells (100X) (0-5/hpf); MDiff Complete? YES; Macrocytosis SLIGHT = 6-15 cells (100X) (0-5/hpf); Mean Corpuscular HGB CONC 29.2 g/dL (32.0-36.0); Mean Corpuscular Hemoglobin 29.7 pg (27.0-31.0); Mean Platelet Volume 7.1 fL (7.4-10.4); Platelet Count 297 thou/uL (130-400); Platelet Morphology Comment Appears Adequate; Polychromasia MODERATE = 3-4 cells (100X) (0-2/hpf); Red Blood Cell (RBC) Count 3.08 mill/uL (4.20-5.40); White Blood Cell (WBC) Count 12.2 thou/uL (4.8-10.8)
[2021-05-21] MEDS: Nystatin Powder 15 GM BOT TOP SCH ×2 (12:21→20:53)
[2021-05-21] MEDS: cefTRIAXone\\ROCEPHIN 1 GM in Sodium Chloride 0.9% 100 ML IVPB SCH (12:22)
[2021-05-21] MEDS: Cyanocobalamin (Vitamin B-12) 1,000 MCG TAB PO SCH (20:53)
[2021-05-22 05:20] LABS: #Lymphocytes 1.5 thou/uL (1.20-3.40); #Monocytes 0.6 thou/uL (0.11-0.59); #Neutrophils 10.3 thou/uL (1.40-6.50); %Basophils 0.1 % (0.0-1.0); %Eosinophils 0.1 % (0.0-10.0); %Lymphocytes 11.7 % (21.0-51.0); %Monocytes 4.7 % (0.0-10.0); %Neutrophils 83.4 % (42.0-75.0); Hemoglobin 8.5 g/dL (12.0-16.0); Mean Corpuscular HGB CONC 29.2 g/dL (32.0-36.0); Mean Corpuscular Hemoglobin 29.8 pg (27.0-31.0); Mean Platelet Volume 7.3 fL (7.4-10.4); Platelet Count 337 thou/uL (130-400); Red Blood Cell (RBC) Count 2.84 mill/uL (4.20-5.40); White Blood Cell (WBC) Count 12.4 thou/uL (4.8-10.8)
[2021-05-22 05:38] LABS: Anion Gap 12 mmol/L (10-20); BUN (Urea Nitrogen) 24 mg/dL (7.0-18.7); Calc. Creatinine Clearance 223 mL/min (70-130); Calcium 8.9 mg/dL (7.8-10.44); Carbon Dioxide 32 mmol/L (22-29); Chloride 93 mmol/L (98-107); Glucose 147 mg/dL (70-105); Magnesium 2.2 mg/dL (1.6-2.6); Potassium 5.3 mmol/L (3.5-5.1); Sodium 132 mmol/L (136-145)
[2021-05-22] MEDS: Furosemide 40 MG/4 ML VIAL SLOW IVP SCH (06:15)
[2021-05-22] MEDS: Diltiazem HCl CD 300 mg Capsule PO SCH (09:01)
[2021-05-22] MEDS: Senokot S 8.6-50 MG TAB PO SCH ×2 (09:01→21:01)
[2021-05-22] MEDS: Flecainide 50 MG TAB PO SCH ×2 (09:01→20:59)
[2021-05-22] MEDS: Apixaban 5 MG TAB PO SCH ×2 (09:01→21:00)
[2021-05-22] MEDS: Cefdinir 300 MG CAP PO SCH ×2 (09:01→20:59)
[2021-05-22] MEDS: Folic Acid 1 MG TAB PO SCH (09:02)
[2021-05-22] MEDS: Famotidine 20 MG TAB PO SCH ×2 (09:02→21:00)
[2021-05-22] MEDS: Nystatin Powder 15 GM BOT TOP SCH ×2 (09:07→21:01)
[2021-05-22] MEDS: Furosemide 40 MG TAB PO SCH (15:13)
[2021-05-22] MEDS: Cyanocobalamin (Vitamin B-12) 1,000 MCG TAB PO SCH (21:00)
[2021-05-23] MEDS: Acetaminophen 325 MG TAB PO PRN (05:02)
[2021-05-23] MEDS: Cefdinir 300 MG CAP PO SCH ×2 (08:15→20:39)
[2021-05-23] MEDS: Famotidine 20 MG TAB PO SCH ×2 (08:15→20:39)
[2021-05-23] MEDS: Nystatin Powder 15 GM BOT TOP SCH ×2 (08:16→20:39)
[2021-05-23] MEDS: Folic Acid 1 MG TAB PO SCH (08:16)
[2021-05-23] MEDS: Furosemide 40 MG TAB PO SCH ×2 (08:16→13:15)
[2021-05-23] MEDS: Flecainide 50 MG TAB PO SCH ×2 (08:16→20:38)
[2021-05-23] MEDS: Diltiazem HCl CD 300 mg Capsule PO SCH (08:16)
[2021-05-23] MEDS: Apixaban 5 MG TAB PO SCH ×2 (08:16→20:39)
[2021-05-23] MEDS: Senokot S 8.6-50 MG TAB PO SCH ×2 (08:17→20:38)
[2021-05-23] MEDS: AcetaZOLAMIDE 250 MG TAB PO SCH ×2 (08:53→20:39)
[2021-05-23] MEDS ORDERED: Metolazone 5 MG TAB PO SCH (12:15)
[2021-05-23] MEDS: Furosemide 40 MG/4 ML VIAL SLOW IVP SCH (14:04)
[2021-05-23] MEDS: Cyanocobalamin (Vitamin B-12) 1,000 MCG TAB PO SCH (20:38)
[2021-05-24] MEDS: Furosemide 40 MG/4 ML VIAL SLOW IVP SCH (06:06)
[2021-05-24 08:19] LABS: Anion Gap 13 mmol/L (10-20); BUN (Urea Nitrogen) 38 mg/dL (7.0-18.7); Calc. Creatinine Clearance 199 mL/min (70-130); Carbon Dioxide 30 mmol/L (22-29); Chloride 93 mmol/L (98-107); Glucose 96 mg/dL (70-105); Potassium 5.3 mmol/L (3.5-5.1); Sodium 131 mmol/L (136-145)
[2021-05-24] MEDS ORDERED: Metolazone 5 MG TAB PO SCH (08:30)
[2021-05-24] MEDS: AcetaZOLAMIDE 250 MG TAB PO SCH ×2 (09:28→21:21)
[2021-05-24] MEDS: Cefdinir 300 MG CAP PO SCH ×2 (09:28→21:20)
[2021-05-24] MEDS: Diltiazem HCl CD 300 mg Capsule PO SCH (09:28)
[2021-05-24] MEDS: Apixaban 5 MG TAB PO SCH ×2 (09:28→21:20)
[2021-05-24] MEDS: Flecainide 50 MG TAB PO SCH ×2 (09:30→21:20)
[2021-05-24] MEDS: Folic Acid 1 MG TAB PO SCH (09:30)
[2021-05-24] MEDS: Nystatin Powder 15 GM BOT TOP SCH ×2 (09:30→21:21)
[2021-05-24] MEDS: Famotidine 20 MG TAB PO SCH ×2 (09:30→21:21)
[2021-05-24] MEDS: Senokot S 8.6-50 MG TAB PO SCH ×2 (09:31→21:20)
[2021-05-24] MEDS: Acetaminophen 325 MG TAB PO PRN ×2 (11:00→17:08)
[2021-05-24] MEDS: Furosemide 40 MG TAB PO SCH (14:05)
[2021-05-24] MEDS: Cyanocobalamin (Vitamin B-12) 1,000 MCG TAB PO SCH (21:20)
[2021-05-25 04:27] LABS: Anion Gap 13 mmol/L (10-20); BUN (Urea Nitrogen) 35 mg/dL (7.0-18.7); Calc. Creatinine Clearance 199 mL/min (70-130); Calcium 8.9 mg/dL (7.8-10.44); Carbon Dioxide 30 mmol/L (22-29); Chloride 94 mmol/L (98-107); Glucose 116 mg/dL (70-105); Potassium 4.9 mmol/L (3.5-5.1); Sodium 132 mmol/L (136-145)
[2021-05-25] MEDS: Furosemide 40 MG TAB PO SCH ×2 (05:29→14:39)
[2021-05-25] MEDS: Flecainide 50 MG TAB PO SCH ×2 (09:04→22:15)
[2021-05-25] MEDS: Diltiazem HCl CD 300 mg Capsule PO SCH (09:04)
[2021-05-25] MEDS: Senokot S 8.6-50 MG TAB PO SCH ×2 (09:04→21:50)
[2021-05-25] MEDS: AcetaZOLAMIDE 250 MG TAB PO SCH ×2 (09:05→22:15)
[2021-05-25] MEDS: Famotidine 20 MG TAB PO SCH ×2 (09:05→21:50)
[2021-05-25] MEDS: Folic Acid 1 MG TAB PO SCH (09:05)
[2021-05-25] MEDS: Cefdinir 300 MG CAP PO SCH ×2 (09:05→21:51)
[2021-05-25] MEDS: Apixaban 5 MG TAB PO SCH ×2 (09:09→21:50)
[2021-05-25] MEDS: Nystatin Powder 15 GM BOT TOP SCH ×2 (09:58→21:57)
[2021-05-25] MEDS ORDERED: ALPRAZolam 0.25 MG TAB PO PRN (12:57)
[2021-05-25] MEDS: Acetaminophen 325 MG TAB PO PRN (15:11)
[2021-05-25] MEDS ORDERED: Ondansetron PF 4 MG/2 ML Vial IVP PRN (17:46)
[2021-05-25] MEDS: FlunisoLIDE 0.025% Nasal Spray 25 ml Bottle EA NARE SCH (21:49)
[2021-05-25] MEDS: Cyanocobalamin (Vitamin B-12) 1,000 MCG TAB PO SCH (21:51)
[2021-05-26] MEDS: Furosemide 40 MG TAB PO SCH ×2 (06:19→16:06)
[2021-05-26 06:20] LABS: Anion Gap 11 mmol/L (10-20); BUN (Urea Nitrogen) 34 mg/dL (7.0-18.7); Calc. Creatinine Clearance 221 mL/min (70-130); Calcium 9.2 mg/dL (7.8-10.44); Carbon Dioxide 33 mmol/L (22-29); Chloride 93 mmol/L (98-107); Glucose 108 mg/dL (70-105); Potassium 4.7 mmol/L (3.5-5.1); Sodium 132 mmol/L (136-145)
[2021-05-26] MEDS: Famotidine 20 MG TAB PO SCH ×2 (08:11→21:10)
[2021-05-26] MEDS: Apixaban 5 MG TAB PO SCH ×2 (08:11→21:10)
[2021-05-26] MEDS: AcetaZOLAMIDE 250 MG TAB PO SCH ×2 (08:11→21:10)
[2021-05-26] MEDS: Diltiazem HCl CD 300 mg Capsule PO SCH (08:11)
[2021-05-26] MEDS: Cefdinir 300 MG CAP PO SCH ×2 (08:11→21:10)
[2021-05-26] MEDS: Flecainide 50 MG TAB PO SCH ×2 (08:12→21:10)
[2021-05-26] MEDS: Folic Acid 1 MG TAB PO SCH (08:12)
[2021-05-26] MEDS: Senokot S 8.6-50 MG TAB PO SCH ×2 (08:12→21:10)
[2021-05-26] MEDS: Nystatin Powder 15 GM BOT TOP SCH ×2 (08:13→21:10)
[2021-05-26] MEDS: FlunisoLIDE 0.025% Nasal Spray 25 ml Bottle EA NARE SCH ×2 (08:13→21:10)
[2021-05-26 11:07] LABS: Actual Bicarbonate (HCO3a) 38.9 mEq/L (22-28); Base Excess (BEa) 9.5 mEq/L (-2.0 to +3.0); Calcium, Ionized (arterial) 1.18 mmol/L (1.12-1.30); Carboxyhemoglobin (COHb) 1.8 gm% (0.0-3.0); Hemoglobin (Hb) 10.2 g/dL (12.0-16.0); pH, Arterial 7.27 (7.35-7.45)
[2021-05-26 11:10] LABS: O2 Tension (PaO2), arterial 51.6 mmHg (80.0-100.0); Puncture Site LRA
[2021-05-26] MEDS: Cyanocobalamin (Vitamin B-12) 1,000 MCG TAB PO SCH (21:10)
[2021-05-27] MEDS: Furosemide 40 MG TAB PO SCH (05:47)
[2021-05-27 07:21] LABS: Anion Gap 9 mmol/L (10-20); BUN (Urea Nitrogen) 34 mg/dL (7.0-18.7); Calc. Creatinine Clearance 196 mL/min (70-130); Calcium 9.1 mg/dL (7.8-10.44); Carbon Dioxide 36 mmol/L (22-29); Chloride 93 mmol/L (98-107); Glucose 107 mg/dL (70-105); Potassium 4.7 mmol/L (3.5-5.1); Sodium 133 mmol/L (136-145)
[2021-05-27] MEDS: Folic Acid 1 MG TAB PO SCH (10:46)
[2021-05-27] MEDS: Cefdinir 300 MG CAP PO SCH ×2 (10:46→20:44)
[2021-05-27] MEDS: AcetaZOLAMIDE 250 MG TAB PO SCH ×2 (10:46→20:43)
[2021-05-27] MEDS: Apixaban 5 MG TAB PO SCH ×2 (10:46→20:44)
[2021-05-27] MEDS: Senokot S 8.6-50 MG TAB PO SCH ×2 (10:47→20:46)
[2021-05-27] MEDS: Nystatin Powder 15 GM BOT TOP SCH ×2 (10:47→20:45)
[2021-05-27] MEDS: Diltiazem HCl CD 300 mg Capsule PO SCH (10:47)
[2021-05-27] MEDS: Flecainide 50 MG TAB PO SCH ×2 (10:47→20:45)
[2021-05-27] MEDS: Famotidine 20 MG TAB PO SCH ×2 (10:47→20:44)
[2021-05-27] MEDS: FlunisoLIDE 0.025% Nasal Spray 25 ml Bottle EA NARE SCH ×2 (12:18→20:45)
[2021-05-27] MEDS: methylPREDNISolone Sod Succ 40 MG VIAL IVP SCH ×2 (15:34→22:33)
[2021-05-27] MEDS: Cyanocobalamin (Vitamin B-12) 1,000 MCG TAB PO SCH (20:44)
[2021-05-28] MEDS: methylPREDNISolone Sod Succ 40 MG VIAL IVP SCH ×3 (05:45→21:29)
[2021-05-28] MEDS: Cefdinir 300 MG CAP PO SCH ×2 (09:00→21:27)
[2021-05-28] MEDS: AcetaZOLAMIDE 250 MG TAB PO SCH ×2 (09:00→21:26)
[2021-05-28] MEDS: Diltiazem HCl CD 300 mg Capsule PO SCH (09:00)
[2021-05-28] MEDS: Famotidine 20 MG TAB PO SCH ×2 (09:00→21:27)
[2021-05-28] MEDS: Apixaban 5 MG TAB PO SCH ×2 (09:00→21:27)
[2021-05-28] MEDS: Folic Acid 1 MG TAB PO SCH (09:00)
[2021-05-28] MEDS: Nystatin Powder 15 GM BOT TOP SCH ×2 (09:00→21:28)
[2021-05-28] MEDS: Flecainide 50 MG TAB PO SCH ×2 (09:00→21:27)
[2021-05-28] MEDS: Senokot S 8.6-50 MG TAB PO SCH ×2 (09:00→21:28)
[2021-05-28] MEDS: FlunisoLIDE 0.025% Nasal Spray 25 ml Bottle EA NARE SCH ×2 (12:10→21:27)
[2021-05-28] MEDS ORDERED: COVID-19 VACC,AD26(JANSSEN)/PF 0.5 ML SYRINGE IM ONE (17:00)
[2021-05-28] MEDS: Cyanocobalamin (Vitamin B-12) 1,000 MCG TAB PO SCH (21:27)
[2021-05-29] MEDS: methylPREDNISolone Sod Succ 40 MG VIAL IVP SCH (05:20)
[2021-05-29 08:17] VITALS: BP 133/70
[2021-05-29] MEDS: Senokot S 8.6-50 MG TAB PO SCH (09:01)
[2021-05-29] MEDS: Folic Acid 1 MG TAB PO SCH ×3 (09:02→09:10)
[2021-05-29] MEDS: Apixaban 5 MG TAB PO SCH (09:02)
[2021-05-29] MEDS: Cefdinir 300 MG CAP PO SCH (09:05)
[2021-05-29] MEDS: Diltiazem HCl CD 300 mg Capsule PO SCH (09:05)
[2021-05-29] MEDS: FlunisoLIDE 0.025% Nasal Spray 25 ml Bottle EA NARE SCH (09:06)
[2021-05-29] MEDS: Flecainide 50 MG TAB PO SCH (09:07)
[2021-05-29] MEDS: Nystatin Powder 15 GM BOT TOP SCH (09:07)
[2021-05-29] MEDS: AcetaZOLAMIDE 250 MG TAB PO SCH (09:08)
[2021-05-29] MEDS: Famotidine 20 MG TAB PO SCH (09:10)
[2021-05-29 13:50] VITALS: TEMP 98
== END 2021-05-29 10:00 | DRG 291 ==
LOC: ERS 08:13 → ERHOLD 11:22 → 2NO 22:49 → SURG B 05-25 12:52 → IMCU/EMU 05-26 14:09 → SURG A 05-27 15:57
PROVIDERS: ADMIT Internal Medicine; ATTEND Internal Medicine
PROC: 5A09557 Assistance with Respiratory Ventilation, Greater than 96 Consecutive Hours, Continuous Positive Airway Pressure (ICD-10-PCS; principal; 2021-05-20)
DX: I11.0 Hypertensive heart disease with heart failure (principal); J96.21 Acute and chronic respiratory failure with hypoxia; J96.22 Acute and chronic respiratory failure with hypercapnia; Z68.44 Body mass index [BMI] 60.0-69.9, adult; E66.2 Morbid (severe) obesity with alveolar hypoventilation; N17.9 Acute kidney failure, unspecified; E87.3 Alkalosis; J44.1 Chronic obstructive pulmonary disease with (acute) exacerbation; I50.33 Acute on chronic diastolic (congestive) heart failure; Z20.822 Contact with and (suspected) exposure to COVID-19; M19.90 Unspecified osteoarthritis, unspecified site; D50.9 Iron deficiency anemia, unspecified; R07.89 Other chest pain; Z88.1 Allergy status to other antibiotic agents; Z88.8 Allergy status to other drugs, medicaments and biological substances; Z91.018 Allergy to other foods; Z88.5 Allergy status to narcotic agent; Z79.01 Long term (current) use of anticoagulants; Z79.899 Other long term (current) drug therapy; Z83.3 Family history of diabetes mellitus; Z82.49 Family history of ischemic heart disease and other diseases of the circulatory system; Z86.79 Personal history of other diseases of the circulatory system; Z99.89 Dependence on other enabling machines and devices
CPT/HCPCS: 0031A; 0240U; 36415; 36600; 71045; 80048; 80053; 82550; 82805; 83690; 83735; 83880; 84100; 84484; 85025; 91303; 93005; 93798; 94640; 94660; 96374; J0696; J1940; J2405; J2920; J3490; J7620